=== PATIENT | male | born 1940 | race Caucasian/White ===

== ENCOUNTER 2016-09-21 13:11 | Emergency (ER) | payer OTHER, MEDICARE ==
[2016-09-21 13:19] VITALS: TEMP 97.8; BMI 39.4
--- NOTE | 2016-09-21 15:28 | PDOC ---
History of Present Illness <William Hong - Last Filed: 09/21/16 18:18> - General History Source: Patient Exam Limitations: No Limitations - History of Present Illness Initial Comments: 09/21/16 17:45 The patient is a 76 year old male, with a significant past medical history of hypertension and hyperlipidemia, who presents to the emergency department sent from wound care for evaluation of bilateral lower extremity edema and erythema for approximately 1 week. Pt hasn't really noticed any more erythema than usual. The patient reports his right leg swelling is worse than the left, and is mainly localized above the right knee. The patient states his right leg is worse than the left, because he has been bearing more weight on the right leg due to left leg weakness from his spinal stenosis. Patient reports the swelling does not really bother him. He denies any associated fever or chills. He denies any history of DVTs or PEs. He denies any chest pain, shortness of breath, diaphoresis, or palpitations. He denies any recent travel. Patient reports he has an unknown skin condition, which he sees a Fagot Maker for and takes steroids for. He denies any abdominal pain, nausea, vomiting, diarrhea, or constipation. He denies any dysuria, hematuria, frequency, or urgency. Allergies: None reported Past Surgical History: 2 hip replacements, 2 knee replacements Social History: Former smoker (Quit 15 years ago). No ETOH or drug use. PCP: Dr. Charles <Stefano Hardin - Last Filed: 09/21/16 18:30> - General Chief Complaint: Redness To Affected Area Stated Complaint: KNEE PAIN (WOUND CARE SENT) Time Seen by Provider: 09/21/16 13:40 Past History - Past Medical History HTN: Yes Hypercholesterolemia: Yes - Psycho/Social/Smoking Cessation Hx Anxiety: No Suicidal Ideation: No Smoking History: Former smoker Have you smoked in the past 12 months: No If you are a former smoker, when did you quit?: 15 years ago Information on smoking cessation initiated: No Hx Alcohol Use: No Drug/Substance Use Hx: No Substance Use Type: None <William Hong - Last Filed: 09/21/16 18:18> <Stefano Hardin - Last Filed: 09/21/16 18:30> - Past Medical History Allergies/Adverse Reactions: Allergies Allergy/AdvReac Type Severity Reaction Status Date / Time No Known Allergies Allergy Verified 09/21/16 13:14 Home Medications: Ambulatory Orders Prednisone [Deltasone -] 10 mg PO DAILY 09/10/16 Valsartan [Diovan] 80 mg PO DAILY 09/10/16 Simvastatin [Zocor] 0 mg PO DAILY 09/21/16 Review of Systems - Review of Systems Able to Perform ROS?: Yes Comments:: 09/21/16 17:45 CONSTITUTIONAL: No reported: Fever, Chills, Diaphoresis, Generalized Weakness, Malaise, Loss of Appetite HEENT: No reported: Rhinorrhea, Nasal Congestion, Throat Pain, Throat Swelling, Difficulty Swallowing, Mouth Swelling, Ear Pain, Eye Pain, Visual Changes CARDIOVASCULAR: No reported: Chest Pain, Syncope, Palpitations, Irregular Heart Rate, Lightheadedness, Peripheral Edema RESPIRATORY: No reported: Cough, Shortness of Breath, SOB with Exertion, Orthopnea, Wheezing , Stridor, Hemoptysis GASTROINTESTINAL: No reported: Abdominal pain, Abdominal Distension, Nausea, Vomiting, Diarrhea, Constipation, Melena, Hematochezia GENITOURINARY: No reported: Dysuria, Frequency, Urgency, Hesitancy, Flank Pain, Genital Pain MUSCULOSKELETAL: Present: +bilateral lower extremity edema and erythema No reported: Myalgia, Arthralgia, Joint Swelling, Back pain, Neck Pain SKIN: No reported: Rash, Itching, Pallor HEMEATOLOGIC/IMMUNOLOGIC: No reported: Easy Bleeding, Easy Bruising, Lymphadenopathy, Frequent infections ENDOCRINE: No reported: Unexplained Weight Gain, Unexplained Weight Loss, Heat Intolerance , Cold Intolerance NEUROLOGIC: No reported: Headache, Focal Weakness, Paresthesias, Vertigo, Lightheadedness, Unsteady Gait, Seizure, Mental Status Changes, Incontinence PSYCHIATRIC: No reported: Anxiety, Depression <HardinStefano azul - Last Filed: 09/21/16 18:30> *Physical Exam - Vital Signs Last Vital Signs Temp Pulse Resp BP Pulse Ox 97.8 F 89 18 129/70 97 09/21/16 13:15 09/21/16 13:36 09/21/16 13:15 09/21/16 13:15 09/21/16 13:36 <HalWilliam - Last Filed: 09/21/16 18:18> - Vital Signs Last Vital Signs Temp Pulse Resp BP Pulse Ox 97.8 F 89 18 129/70 97 09/21/16 13:15 09/21/16 13:36 09/21/16 13:15 09/21/16 13:15 09/21/16 13:36 - Physical Exam Comments: 09/21/16 17:46 GENERAL: The patient is awake, alert, and fully oriented, Nontoxic - in no acute distress. obese HEAD: Normocephalic, atraumatic. EYES: extraocular movements intact, sclera anicteric, conjunctiva clear. ENT: Normal voice, Moist mucous membranes. NECK: Normal range of motion, supple LUNGS: Breath sounds equal, clear to auscultation bilaterally. No wheezes, no rhonchi, no rales. HEART: Regular rate and rhythm, normal S1 and S2 without murmur, rub or gallop. ABDOMEN: Soft, nontender, normoactive bowel sounds. No guarding, no rebound. . No CVA tenderness EXTREMITIES: macerated skin with some superficial breakdown of epidermis on b/l LE, no erythema, induration, warmth, discharge, erythema that is blanching, non indurated, nontender, not warm to touch on thighs b/l, flaking skin noted b/l. NEUROLOGICAL: No facial asymmetry, Normal speech, moving all 4 extremities spontaneously and symmetrically PSYCH: Normal mood, normal affect. SKIN: Warm, Dry, normal turgor <WilfredGiomilsy - Last Filed: 09/21/16 18:30> Heart Score/ECG Review - ECG Impressions Comment:: 09/21/16 18:16 Twelve-lead EKG was performed and reviewed by me. There is normal sinus rhythm with a normal rate. Rate of 89 left axis devatiion RBBB PBCs present <HalWilliam - Last Filed: 09/21/16 18:18> ED Treatment Course - LABORATORY CBC & Chemistry Diagram: 09/21/16 15:45 09/21/16 15:45 <HalWilliam - Last Filed: 09/21/16 18:18> - LABORATORY CBC & Chemistry Diagram: 09/21/16 15:45 09/21/16 15:45 - ADDITIONAL ORDERS Additional order review: Laboratory Results 09/21/16 15:45 Sodium 139 Potassium 4.3 Chloride 103 Carbon Dioxide 29 Anion Gap 7 L BUN 18 Creatinine 0.8 Creat Clearance w eGFR > 60 Random Glucose 106 Calcium 8.9 Total Bilirubin 0.6 AST 15 ALT 20 Alkaline Phosphatase 59 Total Protein 5.6 L Albumin 3.1 L 09/21/16 15:45 RBC 3.20 L MCV 91.1 MCHC 31.6 L RDW 16.2 H MPV 7.8 Neutrophils % 80.4 Lymphocytes % 8.8 Monocytes % 7.8 Eosinophils % 2.2 Basophils % 0.8 - RADIOLOGY Radiology Studies Ordered: 09/21/16 18:27 EXAM: LLE venous US INTERPRETED BY: Dr. Boucher REVIEWED BY: Dr. Hong IMPRESSION: Clinical information given: evaluate for DVT The exam was performed utilizing compression, grayscale, color flow and doppler sonography. There is no sonographic evidence of deep vein thrombosis. The greater saphenous vein appears patent. The smaller superficial veins demonstrate no obvious thrombosis. If there is clinical concern for possible isolated deep calf vein thrombosis or if there is a clinical diagnosis of uncomplicated superficial thrombophlebitis, then correlation with follow up sonography is suggested in approximately 3-7 days. No obvious popliteal cyst is noted. EXAM: CXR INTERPRETED BY: Dr. Lassiter REVIEWED BY: Dr. Hong IMPRESSION: No acute pathology. Left base scarring or atelectasis. Necklace artifact. <Stefano Hardin - Last Filed: 09/21/16 18:30> Medical Decision Making - Medical Decision Making 09/21/16 15:39 pt with htn, hl, sent by wound care for redness/swelling of his R leg. 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 I answered all of the patient's questions. The patient was satisfied with the care received and felt comfortable with the discharge plan and treatment plan. The patient will call their primary care physician within 24 hours to arrange follow-up and will return to the Emergency Department with any new, persistent or worsening symptoms. <William Hong - Last Filed: 09/21/16 18:18> *DC/Admit/Observation/Transfer - Discharge Dispostion Admit: No <William Hong - Last Filed: 09/21/16 18:18> - Attestations Scribe Attestion: 09/21/16 17:46 Documentation prepared by Stefano Hardin, acting as medical planner for William Hong MD. <Stefano Hardin - Last Filed: 09/21/16 18:30> Diagnosis at time of Disposition: Erythroderma - Discharge Dispostion Disposition: HOME Condition at time of disposition: Improved - Referrals Referrals: John Charles [Primary Care Provider] - - Patient Instructions Additional Instructions: Follow-up with your residential sales executive next Saturday for evaluation of your skin condition Return to the emergency department if you have any concerns including shortness of breath, fever, chills, increased pain or any other concerns Print Language: PASHTO
[2016-09-21 15:53] LABS: BASOPHIL 0.8 % (0-2.0); EOSINOPHIL 2.2 % (0-4.5); MCH 28.8 pg (25.7-33.7); MCHC 31.6 g/dl (32.0-35.9); MEAN CELL VOLUME 91.1 fl (80-96); MEAN PLT VOLUME 7.8 fl (7.5-11.1); NEUTROPHILS 80.4 % (42.8-82.8); PLATELET COUNT 210 K/MM3 (134-434); RDW 16.2 % (11.9-15.9); WHITE BLOOD COUNT 8.7 K/mm3 (4.0-10.0)
[2016-09-21 16:18] LABS: ALBUMIN 3.1 g/dl (3.4-5.0); ANION GAP 7 (8-16); BILIRUBIN,TOTAL 0.6 mg/dL (0.2-1.0); CALCIUM 8.9 mg/dL (8.5-10.1); CO2 29 mmol/L (21-32); CREATININE 0.8 mg/dL (0.7-1.3); GLUCOSE,RANDOM 106 mg/dL (74-106); SGOT/AST 15 U/L (15-37); SGPT/ALT 20 U/L (12-78); TOT PROT 5.6 g/dl (6.4-8.2)
[2016-09-21 16:19] LABS: ALK PHOS 59 U/L (45-117)
[2016-09-21 18:13] VITALS: BP 147/76; PULSE 87
--- NOTE | 2016-10-01 15:27 | EKG ---
Test Reason : Blood Pressure : / mmHG Vent. Rate : 089 BPM Atrial Rate : 089 BPM P-R Int : 126 ms QRS Dur : 126 ms QT Int : 404 ms P-R-T Axes : 039 -30 001 degrees QTc Int : 491 ms SINUS RHYTHM WITH OCCASIONAL PREMATURE VENTRICULAR COMPLEXES AND PREMATURE ATRIAL COMPLEXES LEFT AXIS DEVIATION RIGHT BUNDLE BRANCH BLOCK MODERATE VOLTAGE CRITERIA FOR LVH, MAY BE NORMAL VARIANT ABNORMAL ECG NO PREVIOUS ECGS AVAILABLE Confirmed by LUANN BARTLETT, MARITZA ([id number]) on 10/01/2016 3:27:16 PM Referred By: Confirmed By:MARITZA KONG MD
== END 2016-09-21 18:31 | disposition home or self-care (01) ==
LOC: JER 13:11
DX: L53.9 Erythematous condition, unspecified (principal); I10 Essential (primary) hypertension; E78.5 Hyperlipidemia, unspecified; Z87.891 Personal history of nicotine dependence
CPT/HCPCS: 36415; 71010-TC; 80053; 85025; 93005; 93010; 93971-TC; 99282-25

== ENCOUNTER 2019-10-09 14:53 | Inpatient (IN) | payer OTHER, MEDICARE ==
--- NOTE | 2019-10-09 15:02 | PDOC ---
Rapid Medical Evaluation Time Seen by Provider: 10/09/19 14:56 Medical Evaluation: Allergies Allergy/AdvReac Type Severity Reaction Status Date / Time No Known Allergies Allergy Verified 10/02/19 16:09 10/09/19 14:56 I have performed a brief in-person evaluation of this patient. CC: sent by wound care for admission for IV Abx- cellulitis BLE L>R PE: deferred Orders: labs, ekg, cxr Patient will proceed to ED for further evaluation. Discharge Disposition - Diagnosis Cellulitis - Referrals Referrals: Nicolasa Don [Primary Care Provider] - - Patient Instructions - Post Discharge Activity
--- NOTE | 2019-10-09 15:58 | PDOC ---
History of Present Illness - General Chief Complaint: Wound Stated Complaint: Wound Time Seen by Provider: 10/09/19 14:56 - History of Present Illness Initial Comments: 79 YOM h/o HLD. HTN, erythroderma, presents with suspected skin infection of 2 weeks duration. Patient reports that 2 weeks prior to arrival he was diagnosed with cellulitis for which was treated with a one week course of PO antibiotics, however after one week of antibiotics his symptoms did not improve. He was seen this morning at the wound center on the 5th floor for a dressing change where a nurse inspected his wound and suggested he come to the ED to be admitted for IV antibiotics. He mentions some drainage from the wound site as well as some warmth overlying the wound and the skin in the immediate periphery. He denies any pain in the region. He denies CP, SOB, N/V/D, fever, night sweats or chills. 10/09/19 17:49 Past History - Medical History Allergies/Adverse Reactions: Allergies Allergy/AdvReac Type Severity Reaction Status Date / Time No Known Allergies Allergy Verified 10/02/19 16:09 Home Medications: Ambulatory Orders Valsartan [Diovan] 80 mg PO DAILY 09/10/16 Simvastatin [Zocor] 0 mg PO DAILY 09/21/16 Cyanocobalamin [Vitamin B12 -] 1 tab PO DAILY 09/28/16 Cholecalciferol (Vitamin D3) [Vitamin D3 -] 2,000 units PO DAILY 04/04/18 Ferrous Sulfate [Iron] 325 mg PO DAILY 04/04/18 Cephalexin [Keflex] 500 mg PO TID #21 capsule 09/18/19 Anemia: No Asthma: No Cancer: No Cardiac Disorders: No CVA: No COPD: Yes CHF: No Dementia: No Diabetes: No GI Disorders: No Disorders: No HTN: Yes Hypercholesterolemia: Yes Liver Disease: No Seizures: No Thyroid Disease: No - Surgical History Abdominal Surgery: No Appendectomy: No Cardiac Surgery: No Cholecystectomy: No Lung Surgery: No Neurologic Surgery: No Orthopedic Surgery: Yes (bi-lateral knee replacements) - Psycho-Social/Smoking History Smoking History: Former smoker Have you smoked in the past 12 months: No If you are a former smoker, when did you quit?: 15 years ago Information on smoking cessation initiated: No - Substance Abuse Hx (Audit-C & DAST Scrn) How often the patient has a drink containing alcohol: 4 0r more times/wk Number of drinks the patient has on a typical day: 1 or 2 How often the patient has six or more drinks on one occasion: Daily or almost daily Score: In Men: 4 or > Positive; In Women: 3 or > Positive: 8 Screen Result (Pos requires Nsg. Audit-10AR): Positive In the last yr the pt used illegal drug/Rx for NonMed reason: No Score: Yes response is considered Positive: 0 Screen Result (Positive result requires Nsg. DAST-10): Negative Review of Systems - Review of Systems Able to Perform ROS?: Yes Constitutional: Yes: See HPI HEENTM: Yes: See HPI Respiratory: Yes: See HPI Cardiac (ROS): Yes: See HPI ABD/GI: Yes: See HPI : Yes: See HPI Musculoskeletal: Yes: See HPI Integumentary: Yes: See HPI Neurological: Yes: See HPI Endocrine: Yes: See HPI Hematologic/Lymphatic: Yes: See HPI *Physical Exam - Vital Signs Last Vital Signs Temp Pulse Resp BP Pulse Ox 98.2 F 69 19 142/79 97 10/09/19 15:00 10/09/19 15:00 10/09/19 15:00 10/09/19 15:00 10/09/19 15:00 - Physical Exam General Appearance: Yes: Nourished, Appropriately Dressed Respiratory/Chest: positive: Lungs Clear, Normal Breath Sounds, Respiratory Distress Cardiovascular: positive: Regular Rhythm, Regular Rate, S1, S2 Gastrointestinal/Abdominal: positive: Normal Bowel Sounds, Flat, Soft Extremity: positive: Other (Patient right leg and foot is covered in gauze bandage, patients left leg is erythematous, macerated, with flakey and scaley overlying skin, there is some greenish drainage on his foot particularly in between his toes. His leg and foot is diffusely warm to palpation. No sign of induration. ) ED Treatment Course - LABORATORY CBC & Chemistry Diagram: 10/09/19 16:40 10/09/19 16:40 Medical Decision Making - Medical Decision Making 79 YOM h/o HLD. HTN, erythroderma, presents with suspected skin infection of 2 weeks duration. Patient reports that 2 weeks prior to arrival he was diagnosed with cellulitis for which was treated with a one week course of PO antibiotics, however after one week of antibiotics his symptoms did not improve. He was seen this morning at the wound center on the 5th floor for a dressing change where a nurse inspected his wound and suggested he come to the ED to be admitted for IV antibiotics. He mentions some drainage from the wound site as well as some warmth overlying the wound and the skin in the immediate periphery. He denies any pain in the region. He denies CP, SOB, N/V/D, fever, night sweats or chills. Vitals were stable on arrival. Physical exam outside of leg is wnl. Left leg is erythematous, macerated, with flakey and scaley overlying skin, there is some greenish drainage on his foot particularly in between his toes. His leg and foot is diffusely warm to palpation. No sign of induration. ddx includes but is not limited to: Cellulitis, osteomyelitis, erythroderma. plan: CBC, CMP, CXR, XRAY left foot and left leg. IV vanc and zosyn reassess: labs and CXR wnl. Dispo: will admit to inpatient for IV antibiotics Discharge - Discharge Information Problems reviewed: Yes Clinical Impression/Diagnosis: Cellulitis - Follow up/Referral - Patient Discharge Instructions - Post Discharge Activity
[2019-10-09] MEDS ORDERED: VANCOMYCIN HCL 1,500 MG in DEXTROSE 5%-WATER - 500 ML IVPB ONE (17:06)
[2019-10-09] MEDS ORDERED: PIPERACILLIN/TAZOB 3.375 GM 3.375 GM in DEXTROSE 5%-WATER - 50 ML IVPB ONE (17:07)
[2019-10-09 17:13] LABS: HEMATOCRIT 39.3 % (35.4-49); HEMOGLOBIN 12.8 GM/dL (11.7-16.9); MCH 27.7 pg (25.7-33.7); MCHC 32.5 g/dl (32.0-35.9); MEAN CELL VOLUME 85.2 fl (80-96); MEAN PLT VOLUME 7.9 fl (7.5-11.1); PLATELET COUNT 240 K/MM3 (134-434); RBC 4.62 M/mm3 (4.00-5.60); RDW 14.1 % (11.9-15.9); WHITE BLOOD COUNT 9.5 K/mm3 (4.0-10.0)
[2019-10-09] MEDS ORDERED: PIPERACILLIN/TAZOB 3.375 GM 3.375 GM/50 ML BAG IVPB ONE (17:16)
[2019-10-09 17:36] LABS: ALBUMIN 3.4 g/dl (3.4-5.0); BILIRUBIN,TOTAL 0.4 mg/dL (0.2-1); BLOOD UREA NITROGEN 26.8 mg/dL (7-18); CREATININE 1.3 mg/dL (0.55-1.3); POTASSIUM 4.4 mmol/L (3.5-5.1); TOT PROT 6.9 g/dl (6.4-8.2)
--- NOTE | 2019-10-09 17:43 | PDOC ---
Documentation entered by Christel Marti SCRIBE, acting as scribe for Jamil Willson MD. Jamil Willson MD: This documentation has been prepared by the Figueroa shi Sydney, SCRIBE, under my direction and personally reviewed by me in its entirety. I confirm that the documentation accurately reflects all work, treatment, procedures, and medical decision making performed by me. Attending Attestation - Resident Resident Name: Navarro Hall - ED Attending Attestation I have performed the following: I have examined & evaluated the patient, The case was reviewed & discussed with the resident, I agree w/resident's findings & plan, Exceptions are as noted - HPI HPI: 10/09/19 17:41 Patient is a 79 year old male with a significant past medical history of HTN, HLD who presents to the ED with six weeks of progressively worsening left lower leg redness and swelling. As per patient, he noticed worsening redness, blisters, fluid drainage last month and was prescribed antibiotics for seven days two weeks ago with no relief of his symptoms. Patient reports similar symptoms in the past, but this infection is the worst it has ever been. Patient denied any pain associated with his symptoms. Denies fever, chills, CP or shor tness of breath. Allergies: NKDA PCP: Dr. Don - Physicial Exam PE: 10/09/19 17:44 See resident exam - Medical Decision Making 10/09/19 17:54 79 M with BLE swelling, redness, edema. Pt with desquamating skin rash on both legs. Unclear what primary process is, but pt now with superinfection of LLE. - Labs - IV abx - XRs Discharge - Discharge Information Problems reviewed: Yes Clinical Impression/Diagnosis: Cellulitis - Follow up/Referral - Patient Discharge Instructions - Post Discharge Activity
[2019-10-09 18:28] LABS: URINE APPEARANCE CLEAR; URINE BILIRUBIN NEGATIVE (NEGATIVE); URINE COLOR YELLOW; URINE GLUCOSE (UA) NEGATIVE (NEGATIVE); URINE KETONE NEGATIVE (NEGATIVE); URINE LEUK ESTERASE NEGATIVE (NEGATIVE); URINE NITRITE NEGATIVE (NEGATIVE); URINE PROTEIN NEGATIVE (NEGATIVE); URINE UROBILINOGEN 0.2 mg/dL (0.2-1.0)
--- NOTE | 2019-10-09 18:33 | PN ---
Teaching Attending Note Name of Resident: Liana Dhillon ATTENDING PHYSICIAN STATEMENT I saw and evaluated the patient. I reviewed the resident's note and discussed the case with the resident. I agree with the resident's findings and plan as documented. SUBJECTIVE: Referred from wound care center for worsening lower extremity cellulitis OBJECTIVE: Vital Signs Temperature 98.2 F 10/09/19 15:00 Pulse Rate 69 10/09/19 15:00 Respiratory Rate 19 10/09/19 17:05 Blood Pressure 142/79 10/09/19 15:00 O2 Sat by Pulse Oximetry (%) 97 10/09/19 17:05 General: Elderly man, comfortable, not in distress HEENT mucous membranes moist, no anemia, no jaundice, PERRLA, no nystagmus Neck: No JVD, supple, no bruit, thyroid palpably normal, normal carotid pulsations. Chest: Nontender, clear to auscultation bilaterally CVS: S1-S2 regular no murmur/gallop/rub Abdomen: Nondistended, soft, bowel sounds present. Extremities: Bilateral lower extremity edema, right lower extremity wrapped and bandaged, left extremity extensive redness erythema and loss of skin with oozing of serous fluid, peripheral circulation is intact. DRINK WAITER: AO X3 , no gross motor sensory deficit CBC,CMP WBC 9.5 K/mm3 (4.0-10.0) 10/09/19 16:40 RBC 4.62 M/mm3 (4.00-5.60) 10/09/19 16:40 Hgb 12.8 GM/dL (11.7-16.9) 10/09/19 16:40 Hct 39.3 % (35.4-49) D 10/09/19 16:40 MCV 85.2 fl (80-96) 10/09/19 16:40 MCH 27.7 pg (25.7-33.7) 10/09/19 16:40 MCHC 32.5 g/dl (32.0-35.9) 10/09/19 16:40 RDW 14.1 % (11.9-15.9) D 10/09/19 16:40 Plt Count 240 K/MM3 (134-434) 10/09/19 16:40 MPV 7.9 fl (7.5-11.1) 10/09/19 16:40 Absolute Neuts (auto) 7.1 K/mm3 (1.5-8.0) 10/09/19 16:40 Neutrophils % 74.5 % (42.8-82.8) 10/09/19 16:40 Lymphocytes % 11.7 % (8-40) D 10/09/19 16:40 Monocytes % 6.7 % (3.8-10.2) 10/09/19 16:40 Eosinophils % 6.5 % (0-4.5) H D 10/09/19 16:40 Basophils % 0.6 % (0-2.0) 10/09/19 16:40 Nucleated RBC % 0 % (0-0) 10/09/19 16:40 Sodium 141 mmol/L (136-145) 10/09/19 16:40 Potassium 4.4 mmol/L (3.5-5.1) 10/09/19 16:40 Chloride 104 mmol/L (98-107) 10/09/19 16:40 Carbon Dioxide 28 mmol/L (21-32) 10/09/19 16:40 Anion Gap 9 MMOL/L (8-16) 10/09/19 16:40 BUN 26.8 mg/dL (7-18) H 10/09/19 16:40 Creatinine 1.3 mg/dL (0.55-1.3) 10/09/19 16:40 Est GFR (CKD-EPI)AfAm 60.15 10/09/19 16:40 Est GFR (CKD-EPI)NonAf 51.90 10/09/19 16:40 Random Glucose 100 mg/dL (74-106) 10/09/19 16:40 Calcium 9.0 mg/dL (8.5-10.1) 10/09/19 16:40 Total Bilirubin 0.4 mg/dL (0.2-1) 10/09/19 16:40 AST 10 U/L (15-37) L 10/09/19 16:40 ALT 15 U/L (13-61) 10/09/19 16:40 Alkaline Phosphatase 70 U/L (45-117) 10/09/19 16:40 Total Protein 6.9 g/dl (6.4-8.2) 10/09/19 16:40 Albumin 3.4 g/dl (3.4-5.0) 10/09/19 16:40 Chest x-ray: No acute infiltrate EKG: Normal sinus rhythm no acute ST-T changes ASSESSMENT AND PLAN: 79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 Active issues:; 1. Left lower extremity cellulitis: Patient does not have any fever, total white blood cell count is mildly elevated, patient was on Keflex as an outpatient, no visible pus discharge, diffuse erythema will start on Unasyn pending ID recommendations, cultures are collected in the ED. Wound care follow-up vascular and ID recommendations, lower extremity venous Doppler to rule out DVT, follow-up BNP and echocardiogram. 2. Bilateral venous stasis: Leg elevation 3. Hypertension: Well-controlled resume home medications 3. Hypercholesteremia: Resume home medications DVT prophylaxis: Subcu Lovenox Case discussed with the resident.
--- NOTE | 2019-10-09 18:43 | HP ---
CHIEF COMPLAINT:left lower leg swelling and redness PCP:Dr. Don HISTORY OF PRESENT ILLNESS: Patient is a 79 year old male with past medical history of HTN and HLD, presented to the ED due to progressively worsening of left lower leg redness and swelling since 6 weeks ago. Patient is known to have chronic venous stasis of both legs, and has been seen by Dr. Grimes at the wound care clinic regularly. Patient reported he noticed worsening redness, blisters, fluid drainage, where he was prescribed Keflex for 1 week. patient reported no relief of the symptoms so he came back to the Wound care clinic 3 days ago where he was asked to come back today. During evaluation his left leg looked worse and he was advised to go to the ED for further evaluation and management. Patient denies any fevers, chills, headache, dizziness, chest pain, shortness of breath, abdominal pain, diarrhea, urinary symptoms. ER course was notable for: (1)Iv Vanc and Zosyn given (2) (3) Recent Travel:denies PAST MEDICAL HISTORY: HTN HLD PAST SURGICAL HISTORY: Social History: Smoking:previous smoker, quit 30 years ago Alcohol:2 glasses of wine per day Drugs: denies lives with son who takes care of his wounds Allergies No Known Allergies Allergy (Verified 10/02/19 16:09) HOME MEDICATIONS: Home Medications Medication Instructions Recorded Valsartan [Diovan] 80 mg PO DAILY 09/10/16 Simvastatin [Zocor] 0 mg PO DAILY 09/21/16 Cyanocobalamin [Vitamin B12 -] 1 tab PO DAILY 09/28/16 Cholecalciferol (Vitamin D3) 2,000 units PO DAILY 04/04/18 [Vitamin D3 -] Ferrous Sulfate [Iron] 325 mg PO DAILY 04/04/18 Cephalexin [Keflex] 500 mg PO TID #21 capsule 09/18/19 REVIEW OF SYSTEMS CONSTITUTIONAL: Absent: fever, chills, diaphoresis, generalized weakness, malaise, loss of appetite, weight change HEENT: Absent: rhinorrhea, nasal congestion, throat pain, throat swelling, difficulty swallowing, mouth swelling, ear pain, eye pain, visual changes CARDIOVASCULAR: Absent: chest pain, syncope, palpitations, irregular heart rate, lightheadedness, peripheral edema RESPIRATORY: Absent: cough, shortness of breath, dyspnea with exertion, orthopnea, wheezing, stridor, hemoptysis GASTROINTESTINAL: Absent: abdominal pain, abdominal distension, nausea, vomiting, diarrhea, constipation, melena, hematochezia GENITOURINARY: Absent: dysuria, frequency, urgency, hesitancy, hematuria, flank pain, genital pain MUSCULOSKELETAL: Absent: myalgia, arthralgia, joint swelling, back pain, neck pain SKIN: Absent: rash, itching, pallor HEMATOLOGIC/IMMUNOLOGIC: Absent: easy bleeding, easy bruising, lymphadenopathy, frequent infections ENDOCRINE: Absent: unexplained weight gain, unexplained weight loss, heat intolerance, cold intolerance NEUROLOGIC: Absent: headache, focal weakness or paresthesias, dizziness, unsteady gait, seizure, mental status changes, bladder or bowel incontinence PSYCHIATRIC: Absent: anxiety, depression, suicidal or homicidal ideation, hallucinations. PHYSICAL EXAMINATION Vital Signs - 24 hr 10/09/19 10/09/19 15:00 17:05 Temperature 98.2 F Pulse Rate 69 Respiratory 19 19 Rate Blood Pressure 142/79 O2 Sat by Pulse 97 97 Oximetry (%) GENERAL: Awake, alert, and fully oriented, in no acute distress. HEAD: Normal with no signs of trauma. EYES: PERRLA,EOMI, sclera anicteric, conjunctiva clear. EARS, NOSE, THROAT: Moist mucous membranes. NECK: Normal range of motion, supple LUNGS: Breath sounds equal, clear to auscultation bilaterally. HEART: Regular rate and rhythm, normal S1 and S2 ABDOMEN: Soft, nontender, not distended, normoactive bowel sounds LOWER EXTREMITIES: palpable pulses, warm, well-perfused. LLE: +erythema, clear fluid discharge, with skin desquamation from the left foot extending up to the knee NEUROLOGICAL: Cranial nerves II-XII intact. Normal speech. PSYCHIATRIC: Cooperative. Good eye contact. Appropriate mood and affect. SKIN: Warm, dry, normal turgor Laboratory Results - last 24 hr 10/09/19 10/09/19 10/09/19 16:40 16:40 17:30 WBC 9.5 RBC 4.62 Hgb 12.8 Hct 39.3 D MCV 85.2 MCH 27.7 MCHC 32.5 RDW 14.1 D Plt Count 240 MPV 7.9 Absolute Neuts (auto) 7.1 Neutrophils % 74.5 Lymphocytes % 11.7 D Monocytes % 6.7 Eosinophils % 6.5 H D Basophils % 0.6 Nucleated RBC % 0 Sodium 141 Potassium 4.4 Chloride 104 Carbon Dioxide 28 Anion Gap 9 BUN 26.8 H Creatinine 1.3 Est GFR (CKD-EPI)AfAm 60.15 Est GFR (CKD-EPI)NonAf 51.90 Random Glucose 100 Calcium 9.0 Total Bilirubin 0.4 AST 10 L ALT 15 Alkaline Phosphatase 70 Total Protein 6.9 Albumin 3.4 Urine Color Yellow Urine Appearance Clear Urine pH 5.0 Ur Specific [place] 1.018 Urine Protein Negative Urine Glucose (UA) Negative Urine Ketones Negative Urine Blood Negative Urine Nitrite Negative Urine Bilirubin Negative Urine Urobilinogen 0.2 Ur Leukocyte Esterase Negative ASSESSMENT/PLAN: Patient is a 79 year old male with past medical history of HTN and HLD, presented to the ED due to progressively worsening of left lower leg redness and swelling since 6 weeks ago. #LLE cellulitis -afebrile, no leukocytosis, no adri pus -Xray of right leg pending -IV vanc/zosyn given at the ED -will start Iv Unasyn -BLood cultures pending -lower extremity venous Doppler to rule out DVT -follow-up BNP and echocardiogram. -leg elevation for bilateral venous stasis -Vascular Surgery (Dr. Grimes) consulted. -I D (Dr. Sultana) consulted. #HTN -Continue Valsartan #HLD -On statin #FEN -Not on any standing fluids -Electrolytes wnl, routine bmp monitoring -Sodium restricted diet #Prophylaxis -Heparin 5000u sq bid #Disposition -full code -med surg Visit type - Emergency Visit Emergency Visit: Yes ED Registration Date: 10/09/19 Care time: The patient presented to the Emergency Department on the above date and was hospitalized for further evaluation of their emergent condition. - New Patient This patient is new to me today: Yes Date on this admission: 10/09/19 - Critical Care Critical Care patient: No ATTENDING PHYSICIAN STATEMENT I saw and evaluated the patient. I reviewed the resident's note and discussed the case with the resident. I agree with the resident's findings and plan as documented. SUBJECTIVE: OBJECTIVE: ASSESSMENT AND PLAN:
[2019-10-09 20:06] LABS: ERYTHROCYTE SEDIMENTATION RATE 38 mm/hr (0-20)
[2019-10-09 20:27] LABS: BASO % 0.6 % (0-2.0); EOS % 6.5 % (0-4.5); LYMPH % 11.7 % (8-40); MONO % 6.7 % (3.8-10.2); NEUT % 74.5 % (42.8-82.8)
--- NOTE | 2019-10-09 21:57 | CON.ID ---
Consult - History of Present Illness History of Present Illness: 79 y.o. male with PMH of HTN, HLD, b/l TKR, and b/l chronic venous stasis ulcers/ LLE>RLE edema who follows with Dr. Grimes was sent to the ER from [facility] for increasing LLE erythema/recent drainage concerning for cellulitis. Pt states he has been having increased fluid drainage from the LE and formation of blisters over the past several weeks. He states he completed a 2 wk course of Keflex 1 wk ago for cellulitis but without improvement. In the ER, he was noted to have LLE wound drainage with erythema and mild warmth. He has been afebrile and vitals are within normal range. Has been started on empiric IV Unasyn. Currently pt is alert, afebrile, without acute distress and denies pain but has noticeable LLE erythema/warmth with overlying dry, flaking skin. He has no other complaints. - History Source History Provided By: Patient Limitations to Obtaining History: No Limitations - Past Medical History Cardio/Vascular: Yes: HTN, Hyperlipdemia, Other (Venous stasis) Dermatology: Yes: Cellulitis - Past Surgical History Past Surgical History: Yes: Joint Replacement (hip x 3 knee x 2) - Alcohol/Substance Use Hx Alcohol Use: No - Smoking History Smoking history: Former smoker Have you smoked in the past 12 months: No If you are a former smoker, when did you quit?: 15 years ago Home Medications - Allergies Allergies/Adverse Reactions: Allergies Allergy/AdvReac Type Severity Reaction Status Date / Time No Known Allergies Allergy Verified 10/02/19 16:09 - Home Medications Home Medications: Ambulatory Orders Valsartan [Diovan] 80 mg PO DAILY 09/10/16 Simvastatin [Zocor] 0 mg PO DAILY 09/21/16 Cyanocobalamin [Vitamin B12 -] 1 tab PO DAILY 09/28/16 Cholecalciferol (Vitamin D3) [Vitamin D3 -] 2,000 units PO DAILY 04/04/18 Ferrous Sulfate [Iron] 325 mg PO DAILY 04/04/18 Cephalexin [Keflex] 500 mg PO TID #21 capsule 09/18/19 Review of Systems - Review of Systems Constitutional: reports: No Symptoms Eyes: reports: No Symptoms HENT: reports: No Symptoms Neck: reports: No Symptoms Cardiovascular: reports: No Symptoms Respiratory: reports: No Symptoms Gastrointestinal: reports: No Symptoms Genitourinary: reports: No Symptoms Musculoskeletal: reports: No Symptoms Integumentary: reports: Erythema (LLE warmth/redness/swelling), Wound, Other (dry) Neurological: reports: No Symptoms Endocrine: reports: No Symptoms Hematology/Lymphatic: reports: No Symptoms Psychiatric: reports: No Symptoms Physical Exam Vital Signs: Vital Signs Temperature 98.3 F 10/09/19 21:00 Pulse Rate 74 10/09/19 21:00 Respiratory Rate 16 10/09/19 21:00 Blood Pressure 144/77 10/09/19 21:00 O2 Sat by Pulse Oximetry (%) 98 10/09/19 21:00 Constitutional: Yes: Well Nourished, No Distress, Calm Eyes: Yes: Conjunctiva Clear, EOM Intact Neck: Yes: Supple Cardiovascular: Yes: Regular Rate and Rhythm Respiratory: Yes: CTA Bilaterally Gastrointestinal: Yes: Normal Bowel Sounds, Soft, Abdomen, Obese Renal/: Yes: WNL Extremities: Yes: Erythema (LLE ++ swelling/warmth/erythema, +extensive skin flaking, no tenderness. no fluctuant lesions palpable) Edema: LLE: 2+ Integumentary: Yes: WNL Neurological: Yes: Alert, Oriented Psychiatric: Yes: Alert Labs: CBC, BMP 10/09/19 16:40 10/09/19 16:40 Imaging - Results X-ray: Report Reviewed Ultrasound: Report Reviewed Problem List - Problems (1) Cellulitis of lower extremity Code(s): L03.119 - CELLULITIS OF UNSPECIFIED PART OF LIMB (2) Venous stasis dermatitis of both lower extremities Code(s): I87.2 - VENOUS INSUFFICIENCY (CHRONIC) (PERIPHERAL) (3) HTN (hypertension) Code(s): I10 - ESSENTIAL (PRIMARY) HYPERTENSION (4) HLD (hyperlipidemia) Code(s): E78.5 - HYPERLIPIDEMIA, UNSPECIFIED (5) Venous (peripheral) insufficiency Code(s): I87.2 - VENOUS INSUFFICIENCY (CHRONIC) (PERIPHERAL) Assessment/Plan 79 y.o. male with PMH of HTN, HLD, b/l TKR, and b/l chronic venous stasis ulcers/ LLE>RLE edema who follows with Dr. Grmies was sent to the ER from [facility] for increasing LLE erythema/recent drainage concerning for cellulitis LLE Cellulitis Venous stasis dermatitis HTN HLD -- continue Unasyn IV for now and monitor for improvement -- ESR 38, CRP 2.4 -- follow up blood cultures -- local care Pt afebrile/stable at this time Will follow up Thank you
[2019-10-09] MEDS: HEPARIN NA (PORCINE) 5,000 UNITS/ML 1ML VIAL SQ SCH (22:44)
[2019-10-10 03:05] VITALS: BMI 34.8
[2019-10-10] MEDS: AMPICILLIN NA/SULBACTAM NA 3 GM in SODIUM CHLORIDE 100 ML IVPB SCH ×4 (05:35→23:10)
[2019-10-10 07:58] LABS: BASO % 0.6 % (0-2.0); EOS % 6.8 % (0-4.5); HEMATOCRIT 34.9 % (35.4-49); HEMOGLOBIN 11.3 GM/dL (11.7-16.9); LYMPH % 11.3 % (8-40); MCH 27.6 pg (25.7-33.7); MCHC 32.5 g/dl (32.0-35.9); MEAN CELL VOLUME 84.8 fl (80-96); MEAN PLT VOLUME 8.1 fl (7.5-11.1); NEUT % 72.3 % (42.8-82.8); PLATELET COUNT 220 K/MM3 (134-434); RBC 4.11 M/mm3 (4.00-5.60); RDW 14.3 % (11.9-15.9); WHITE BLOOD COUNT 8.7 K/mm3 (4.0-10.0)
[2019-10-10 08:03] LABS: INR 1.1 (0.83-1.09)
[2019-10-10 08:06] LABS: ACTIVATED PTT 30.7 SECONDS (25.2-36.5)
[2019-10-10 08:19] LABS: ALBUMIN 2.7 g/dl (3.4-5.0); BILIRUBIN,TOTAL 0.8 mg/dL (0.2-1); CREATININE 1.1 mg/dL (0.55-1.3); MAGNESIUM 2.4 mg/dL (1.8-2.4); PHOSPHOROUS 3.4 mg/dL (2.5-4.9); POTASSIUM 4.1 mmol/L (3.5-5.1); TOT PROT 5.6 g/dl (6.4-8.2)
[2019-10-10] MEDS: HEPARIN NA (PORCINE) 5,000 UNITS/ML 1ML VIAL SQ SCH ×2 (09:24→21:28)
--- NOTE | 2019-10-10 15:03 | EKG ---
Test Reason : Blood Pressure : / mmHG Vent. Rate : 066 BPM Atrial Rate : 066 BPM P-R Int : 136 ms QRS Dur : 134 ms QT Int : 438 ms P-R-T Axes : 049 -41 -03 degrees QTc Int : 459 ms NORMAL SINUS RHYTHM WITH SINUS ARRHYTHMIA LEFT ANTERIOR HEMIBLOCK RIGHT BUNDLE BRANCH BLOCK BIFASCICULAR BLOCK MODERATE VOLTAGE CRITERIA FOR LVH, MAY BE NORMAL VARIANT ABNORMAL ECG WHEN COMPARED WITH ECG OF 21-SEP-2016 13:40, PREMATURE VENTRICULAR COMPLEXES ARE NO LONGER PRESENT PREMATURE ATRIAL COMPLEXES ARE NO LONGER PRESENT Confirmed by ALEKSANDR ELLIS MD ([id number]) on 10/10/2019 3:02:29 PM Referred By: Confirmed By:ALEKSANDR ELLIS MD
--- NOTE | 2019-10-10 17:03 | PN ---
Teaching Attending Note Name of Resident: Sam Carey ATTENDING PHYSICIAN STATEMENT I saw and evaluated the patient. I reviewed the resident's note and discussed the case with the resident. I agree with the resident's findings and plan as documented. SUBJECTIVE: Feeling well, complaining of discomfort B/L LEs. No fever/chills. OBJECTIVE: Afebrile, Hemodynamically Stale. Last Vital Signs Temp Pulse Resp BP Pulse Ox 98.4 F 70 18 119/67 97 10/10/19 14:05 10/10/19 14:05 10/10/19 14:05 10/10/19 14:05 10/10/19 09:00 HEENT - Atramatic, Normocephalic. Heart - S1, S2, RRR Lungs - clear to auscultation Abdomen - Soft, non-tender. Bowel Sounds normal. Extremities - L LE edema, erythema, scalling Neuro - AAO x 3. Tone/Power normal all extremities. Laboratory Results - last 24 hr 10/09/19 10/09/19 10/09/19 16:40 16:40 17:30 WBC 9.5 RBC 4.62 Hgb 12.8 Hct 39.3 D MCV 85.2 MCH 27.7 MCHC 32.5 RDW 14.1 D Plt Count 240 MPV 7.9 Absolute Neuts (auto) 7.1 Neutrophils % 74.5 Neutrophils % (Manual) No Result Required. Lymphocytes % 11.7 D Monocytes % 6.7 Eosinophils % 6.5 H D Basophils % 0.6 Nucleated RBC % 0 ESR 38 H PT with INR INR PTT (Actin FS) Sodium 141 Potassium 4.4 Chloride 104 Carbon Dioxide 28 Anion Gap 9 BUN 26.8 H Creatinine 1.3 Est GFR (CKD-EPI)AfAm 60.15 Est GFR (CKD-EPI)NonAf 51.90 Random Glucose 100 Calcium 9.0 Phosphorus Magnesium Total Bilirubin 0.4 AST 10 L ALT 15 Alkaline Phosphatase 70 C-Reactive Protein 2.4 H B-Natriuretic Peptide Total Protein 6.9 Albumin 3.4 TSH Urine Color Yellow Urine Appearance Clear Urine pH 5.0 Ur Specific [place] 1.018 Urine Protein Negative Urine Glucose (UA) Negative Urine Ketones Negative Urine Blood Negative Urine Nitrite Negative Urine Bilirubin Negative Urine Urobilinogen 0.2 Ur Leukocyte Esterase Negative 10/10/19 10/10/19 10/10/19 06:10 06:10 06:10 WBC 8.7 RBC 4.11 Hgb 11.3 L Hct 34.9 L MCV 84.8 MCH 27.6 MCHC 32.5 RDW 14.3 Plt Count 220 MPV 8.1 Absolute Neuts (auto) 6.3 Neutrophils % 72.3 Neutrophils % (Manual) Lymphocytes % 11.3 Monocytes % 9.0 Eosinophils % 6.8 H Basophils % 0.6 Nucleated RBC % 0 ESR PT with INR 13.00 INR 1.10 H PTT (Actin FS) 30.7 Sodium 139 Potassium 4.1 Chloride 105 Carbon Dioxide 27 Anion Gap 8 BUN 22.0 H Creatinine 1.1 Est GFR (CKD-EPI)AfAm 73.61 Est GFR (CKD-EPI)NonAf 63.51 Random Glucose 90 Calcium 8.0 L Phosphorus 3.4 Magnesium 2.4 Total Bilirubin 0.8 AST 8 L ALT 11 L Alkaline Phosphatase 53 C-Reactive Protein B-Natriuretic Peptide Total Protein 5.6 L Albumin 2.7 L TSH 1.53 Urine Color Urine Appearance Urine pH Ur Specific [place] Urine Protein Urine Glucose (UA) Urine Ketones Urine Blood Urine Nitrite Urine Bilirubin Urine Urobilinogen Ur Leukocyte Esterase 10/10/19 06:10 WBC RBC Hgb Hct MCV MCH MCHC RDW Plt Count MPV Absolute Neuts (auto) Neutrophils % Neutrophils % (Manual) Lymphocytes % Monocytes % Eosinophils % Basophils % Nucleated RBC % ESR PT with INR INR PTT (Actin FS) Sodium Potassium Chloride Carbon Dioxide Anion Gap BUN Creatinine Est GFR (CKD-EPI)AfAm Est GFR (CKD-EPI)NonAf Random Glucose Calcium Phosphorus Magnesium Total Bilirubin AST ALT Alkaline Phosphatase C-Reactive Protein B-Natriuretic Peptide 515.8 H Total Protein Albumin TSH Urine Color Urine Appearance Urine pH Ur Specific [place] Urine Protein Urine Glucose (UA) Urine Ketones Urine Blood Urine Nitrite Urine Bilirubin Urine Urobilinogen Ur Leukocyte Esterase Current Medications Generic Name Dose Route Start Last Admin Trade Name Freq PRN Reason Stop Dose Admin Heparin Sodium (Porcine) 5,000 unit 10/09/19 22:00 10/10/19 09:24 Heparin - SQ 5,000 unit BID BOWEN Administration Ampicillin Sodium/Sulbactam 100 mls @ 200 mls/hr 10/10/19 06:00 10/10/19 11:11 Sodium 3 gm/ Sodium Chloride IVPB 200 mls/hr Q6H BOWEN Administration Home Medications Medication Instructions Recorded Valsartan [Diovan] 80 mg PO DAILY 09/10/16 Simvastatin [Zocor] 0 mg PO DAILY 09/21/16 Cyanocobalamin [Vitamin B12 -] 1 tab PO DAILY 09/28/16 Cholecalciferol (Vitamin D3) 2,000 units PO DAILY 04/04/18 [Vitamin D3 -] Ferrous Sulfate [Iron] 325 mg PO DAILY 04/04/18 Cephalexin [Keflex] 500 mg PO TID #21 capsule 09/18/19 ASSESSMENT/PLAN: 79 year old male with history of HTN and HLD, presented to the ED due to progressive worsening of left lower leg redness and swelling for the past 4-6 weeks. Follows with wound care at [facility]. 1. Acute Cellulitis - LLE No ulcers/purulence Failed outpatient Keflex On IV Unasyn. Blood Cx pending. ID and Vascular Sx/Wound Care consulted. Afebrile, Hemodynamically Stable 2. 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 3. HTN - continue Valsartan 4. HLD - on Statin normally. DVT Px - Heparin SQ
[2019-10-10] MEDS ORDERED: PT OWN MED DRAWER 7, Y5N ONE (17:11)
--- NOTE | 2019-10-10 17:49 | PN ---
Progress Note, Physician History of Present Illness: Pt remains alert, afebrile, without distress. Still with LLE erythema/warmth. No specific complaints. - Current Medication List Current Medications: Active Medications Cholecalciferol (Vitamin D3 -) 2,000 unit PO DAILY [facility] Cyanocobalamin (Vitamin B12 -) 1,000 mcg PO DAILY [facility] Ferrous Sulfate (Feosol -) 325 mg PO DAILY [facility] Heparin Sodium (Porcine) (Heparin -) 5,000 unit SQ BID [facility] Last Admin: 10/10/19 09:24 Dose: 5,000 unit Documented by: Ampicillin Sodium/Sulbactam (Sodium 3 gm/ Sodium Chloride) 100 mls @ 200 mls/hr IVPB Q6H [facility] Last Admin: 10/10/19 17:14 Dose: 200 mls/hr Documented by: Valsartan (Diovan -) 80 mg PO DAILY [facility] - Objective Vital Signs: Vital Signs Temperature 98.4 F 10/10/19 14:05 Pulse Rate 70 10/10/19 14:05 Respiratory Rate 18 10/10/19 14:05 Blood Pressure 119/67 10/10/19 14:05 O2 Sat by Pulse Oximetry (%) 97 10/10/19 09:00 Constitutional: Yes: No Distress, Calm Cardiovascular: Yes: Regular Rate and Rhythm Respiratory: Yes: Regular Gastrointestinal: Yes: Normal Bowel Sounds, Soft, Abdomen, Obese Genitourinary: Yes: WNL Extremities: Yes: Erythema (LLE edema/warmth/erythema, +skin exfoliation) Edema: LLE: 2+ Peripheral Pulses WNL: Yes Integumentary: Yes: WNL Neurological: Yes: Alert, Oriented Labs: CBC, BMP 10/10/19 06:10 10/10/19 06:10 INR, PTT INR 1.10 (0.83-1.09) H 10/10/19 06:10 Laboratory Results - last 24 hr 10/09/19 10/09/19 10/09/19 16:40 16:40 17:30 WBC 9.5 RBC 4.62 Hgb 12.8 Hct 39.3 D MCV 85.2 MCH 27.7 MCHC 32.5 RDW 14.1 D Plt Count 240 MPV 7.9 Absolute Neuts (auto) 7.1 Neutrophils % 74.5 Neutrophils % (Manual) No Result Required. Lymphocytes % 11.7 D Monocytes % 6.7 Eosinophils % 6.5 H D Basophils % 0.6 Nucleated RBC % 0 ESR 38 H PT with INR INR PTT (Actin FS) Sodium 141 Potassium 4.4 Chloride 104 Carbon Dioxide 28 Anion Gap 9 BUN 26.8 H Creatinine 1.3 Est GFR (CKD-EPI)AfAm 60.15 Est GFR (CKD-EPI)NonAf 51.90 Random Glucose 100 Calcium 9.0 Phosphorus Magnesium Total Bilirubin 0.4 AST 10 L ALT 15 Alkaline Phosphatase 70 C-Reactive Protein 2.4 H B-Natriuretic Peptide Total Protein 6.9 Albumin 3.4 TSH Urine Color Yellow Urine Appearance Clear Urine pH 5.0 Ur Specific [place] 1.018 Urine Protein Negative Urine Glucose (UA) Negative Urine Ketones Negative Urine Blood Negative Urine Nitrite Negative Urine Bilirubin Negative Urine Urobilinogen 0.2 Ur Leukocyte Esterase Negative 10/10/19 10/10/19 10/10/19 06:10 06:10 06:10 WBC 8.7 RBC 4.11 Hgb 11.3 L Hct 34.9 L MCV 84.8 MCH 27.6 MCHC 32.5 RDW 14.3 Plt Count 220 MPV 8.1 Absolute Neuts (auto) 6.3 Neutrophils % 72.3 Neutrophils % (Manual) Lymphocytes % 11.3 Monocytes % 9.0 Eosinophils % 6.8 H Basophils % 0.6 Nucleated RBC % 0 ESR PT with INR 13.00 INR 1.10 H PTT (Actin FS) 30.7 Sodium 139 Potassium 4.1 Chloride 105 Carbon Dioxide 27 Anion Gap 8 BUN 22.0 H Creatinine 1.1 Est GFR (CKD-EPI)AfAm 73.61 Est GFR (CKD-EPI)NonAf 63.51 Random Glucose 90 Calcium 8.0 L Phosphorus 3.4 Magnesium 2.4 Total Bilirubin 0.8 AST 8 L ALT 11 L Alkaline Phosphatase 53 C-Reactive Protein B-Natriuretic Peptide Total Protein 5.6 L Albumin 2.7 L TSH 1.53 Urine Color Urine Appearance Urine pH Ur Specific [place] Urine Protein Urine Glucose (UA) Urine Ketones Urine Blood Urine Nitrite Urine Bilirubin Urine Urobilinogen Ur Leukocyte Esterase 10/10/19 06:10 WBC RBC Hgb Hct MCV MCH MCHC RDW Plt Count MPV Absolute Neuts (auto) Neutrophils % Neutrophils % (Manual) Lymphocytes % Monocytes % Eosinophils % Basophils % Nucleated RBC % ESR PT with INR INR PTT (Actin FS) Sodium Potassium Chloride Carbon Dioxide Anion Gap BUN Creatinine Est GFR (CKD-EPI)AfAm Est GFR (CKD-EPI)NonAf Random Glucose Calcium Phosphorus Magnesium Total Bilirubin AST ALT Alkaline Phosphatase C-Reactive Protein B-Natriuretic Peptide 515.8 H Total Protein Albumin TSH Urine Color Urine Appearance Urine pH Ur Specific [place] Urine Protein Urine Glucose (UA) Urine Ketones Urine Blood Urine Nitrite Urine Bilirubin Urine Urobilinogen Ur Leukocyte Esterase Microbiology 10/09/19 16:40 Blood - Peripheral Venous Blood Culture - Preliminary NO GROWTH OBTAINED AFTER 24 HOURS, INCUBATION TO CONTINUE FOR 4 DAYS. 10/09/19 16:40 Blood - Peripheral Venous Blood Culture - Preliminary NO GROWTH OBTAINED AFTER 24 HOURS, INCUBATION TO C ONTINUE FOR 4 DAYS. - ....Imaging X-ray: Report Reviewed Ultrasound: Report Reviewed Problem List - Problems (1) Cellulitis of lower extremity Code(s): L03.119 - CELLULITIS OF UNSPECIFIED PART OF LIMB (2) Venous stasis dermatitis of both lower extremities Code(s): I87.2 - VENOUS INSUFFICIENCY (CHRONIC) (PERIPHERAL) (3) HTN (hypertension) Code(s): I10 - ESSENTIAL (PRIMARY) HYPERTENSION (4) HLD (hyperlipidemia) Code(s): E78.5 - HYPERLIPIDEMIA, UNSPECIFIED (5) Venous (peripheral) insufficiency Code(s): I87.2 - VENOUS INSUFFICIENCY (CHRONIC) (PERIPHERAL) Assessment/Plan 79 y.o. male with PMH of HTN, HLD, b/l TKR, and b/l chronic venous stasis ulcers/ LLE>RLE edema who follows with Dr. Grimes was sent to the ER from [facility] for increasing LLE erythema/recent drainage concerning for cellulitis LLE Cellulitis Venous stasis dermatitis HTN HLD -- continue Unasyn IV for now, will consider broader coverage if no significant improvement noted -- US neg for DVT, other findings noted -- blood culture neg 24 h -- local care Pt afebrile/stable
--- NOTE | 2019-10-10 20:25 | PN ---
Physical Exam: SUBJECTIVE: Patient seen and examined at bedside. The patient reports no pain from his legs. His right leg is wrapped in a bandage. His left leg has erythema with significant peeling of his skin. The patient denies fever/chills, shortness of breath, chest pain, nausea, vomiting, diarrhea, and constipation. OBJECTIVE: Vital Signs Period Temp Pulse Resp BP Sys/Ma Pulse Ox Last 24 Hr 98.3 F-98.7 F 70-100 16-18 109-144/66-77 96-98 GENERAL: The patient is awake, alert, and fully oriented, in no acute distress. HEAD: Normal with no signs of trauma. EYES: Extraocular movements intact. No ptosis. ENT: Ears normal, nares patent, oropharynx clear without exudates, moist mucous membranes. NECK: Trachea midline, full range of motion, supple. LUNGS: Breath sounds equal, clear to auscultation bilaterally, no wheezes, no crackles, no accessory muscle use. HEART: Regular rate and rhythm, S1, S2 without murmur, rub or gallop. ABDOMEN: Soft, nontender, nondistended, normoactive bowel sounds, no guarding, no rebound, no masses. EXTREMITIES: bilateral leg edema. left leg erythemaous and signifcant peeling skin NEUROLOGICAL: Normal speech, gait not observed. PSYCH: Normal mood, normal affect. SKIN: Warm, dry, normal turgor, no rashes or lesions noted Laboratory Results - last 24 hr 10/09/19 10/10/19 10/10/19 16:40 06:10 06:10 WBC 8.7 RBC 4.11 Hgb 11.3 L Hct 34.9 L MCV 84.8 MCH 27.6 MCHC 32.5 RDW 14.3 Plt Count 220 MPV 8.1 Absolute Neuts (auto) 7.1 6.3 Neutrophils % 74.5 72.3 Neutrophils % (Manual) No Result Required. Lymphocytes % 11.7 D 11.3 Monocytes % 6.7 9.0 Eosinophils % 6.5 H D 6.8 H Basophils % 0.6 0.6 Nucleated RBC % 0 PT with INR 13.00 INR 1.10 H PTT (Actin FS) 30.7 Sodium Potassium Chloride Carbon Dioxide Anion Gap BUN Creatinine Est GFR (CKD-EPI)AfAm Est GFR (CKD-EPI)NonAf Random Glucose Calcium Phosphorus Magnesium Total Bilirubin AST ALT Alkaline Phosphatase B-Natriuretic Peptide Total Protein Albumin TSH 10/10/19 10/10/19 06:10 06:10 WBC RBC Hgb Hct MCV MCH MCHC RDW Plt Count MPV Absolute Neuts (auto) Neutrophils % Neutrophils % (Manual) Lymphocytes % Monocytes % Eosinophils % Basophils % Nucleated RBC % PT with INR INR PTT (Actin FS) Sodium 139 Potassium 4.1 Chloride 105 Carbon Dioxide 27 Anion Gap 8 BUN 22.0 H Creatinine 1.1 Est GFR (CKD-EPI)AfAm 73.61 Est GFR (CKD-EPI)NonAf 63.51 Random Glucose 90 Calcium 8.0 L Phosphorus 3.4 Magnesium 2.4 Total Bilirubin 0.8 AST 8 L ALT 11 L Alkaline Phosphatase 53 B-Natriuretic Peptide 515.8 H Total Protein 5.6 L Albumin 2.7 L TSH 1.53 Active Medications Generic Name Dose Route Start Last Admin Trade Name Freq PRN Reason Stop Dose Admin Cholecalciferol 2,000 unit 10/11/19 10:00 Vitamin D3 - PO DAILY BOWEN Cyanocobalamin 1,000 mcg 10/11/19 10:00 Vitamin B12 - PO DAILY BOWEN Ferrous Sulfate 325 mg 10/11/19 10:00 Feosol - PO DAILY BOWEN Heparin Sodium (Porcine) 5,000 unit 10/09/19 22:00 10/10/19 09:24 Heparin - SQ 5,000 unit BID BOWEN Administration Ampicillin Sodium/Sulbactam 100 mls @ 200 mls/hr 10/10/19 06:00 10/10/19 17:14 Sodium 3 gm/ Sodium Chloride IVPB 200 mls/hr Q6H BOWEN Administration Valsartan 80 mg 10/11/19 10:00 Diovan - PO DAILY BOWEN ASSESSMENT/PLAN: 79 year old male patient with past medical history of HTN, HLD who presented from wound care clinic with worsening of his left lower extremity cellulitis. 1. LLE cellulitis - Patient taking IV Unasyn - Pending Blood Cultures - ID and Vascular surgery consulted 2. 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 HTN - Patient taking Valsartan # FEN - Monitoring electrolytes, Sodium controlled diet DVT PPx - Heparin Sq Visit type - Emergency Visit Emergency Visit: Yes ED Registration Date: 10/09/19 Care time: The patient presented to the Emergency Department on the above date and was hospitalized for further evaluation of their emergent condition. - New Patient This patient is new to me today: Yes Date on this admission: 10/10/19 - Critical Care Critical Care patient: No - Discharge Referral Referred to [facility] Med P.C.: No ATTENDING PHYSICIAN STATEMENT I saw and evaluated the patient. I reviewed the resident's note and discussed the case with the resident. I agree with the resident's findings and plan as documented. SUBJECTIVE: OBJECTIVE: ASSESSMENT AND PLAN:
[2019-10-11] MEDS: AMPICILLIN NA/SULBACTAM NA 3 GM in SODIUM CHLORIDE 100 ML IVPB SCH ×3 (05:07→17:00)
[2019-10-11 08:37] LABS: HEMATOCRIT 36.4 % (35.4-49); HEMOGLOBIN 12.1 GM/dL (11.7-16.9); MCHC 33.3 g/dl (32.0-35.9); MEAN PLT VOLUME 8.1 fl (7.5-11.1); PLATELET COUNT 201 K/MM3 (134-434); RBC 4.33 M/mm3 (4.00-5.60); RDW 14.7 % (11.9-15.9); WHITE BLOOD COUNT 7.4 K/mm3 (4.0-10.0)
[2019-10-11 09:03] LABS: CALCIUM 8.2 mg/dL (8.5-10.1); MAGNESIUM 2.4 mg/dL (1.8-2.4); PHOSPHOROUS 3.6 mg/dL (2.5-4.9); POTASSIUM 4.1 mmol/L (3.5-5.1)
[2019-10-11] MEDS: HEPARIN NA (PORCINE) 5,000 UNITS/ML 1ML VIAL SQ SCH ×2 (09:13→21:13)
[2019-10-11] MEDS: CYANOCOBALAMIN 1,000 MCG TABLET (FP) PO SCH (09:13)
[2019-10-11] MEDS: FERROUS SO4 325 MG TABLET (FP) PO SCH (09:13)
[2019-10-11] MEDS: VALSARTAN 80 MG TABLET (UD) PO SCH (09:13)
[2019-10-11] MEDS: CHOLECALCIFEROL (VIT D3) 1,000 UNIT (25 MCG) TABLET PO SCH (09:13)
[2019-10-11] MEDS ORDERED: PT OWN MED DRAWER 7, Y5N ONE ×2 (10:57→16:59)
--- NOTE | 2019-10-11 15:35 | PN ---
Progress Note (short form) - Note Progress Note: SUBJECTIVE: Ongoing mild discomfort B/L LEs. No fever/chills. OBJECTIVE: Afebrile, Hemodynamically Stale. Last Vital Signs Temp Pulse Resp BP Pulse Ox 98.2 F 76 18 111/62 97 10/11/19 13:51 10/11/19 13:51 10/11/19 13:51 10/11/19 13:51 10/11/19 13:51 Heart - S1, S2, RRR Lungs - clear to auscultation Abdomen - Soft, non-tender. Bowel Sounds normal. Extremities - L LE edema, erythema, scalling > R Neuro - AAO x 3. Tone/Power normal all extremities. Laboratory Results - last 24 hr 10/11/19 10/11/19 07:16 07:16 WBC 7.4 RBC 4.33 Hgb 12.1 Hct 36.4 MCV 84.0 MCH 28.0 MCHC 33.3 RDW 14.7 Plt Count 201 MPV 8.1 Sodium 139 Potassium 4.1 Chloride 105 Carbon Dioxide 28 Anion Gap 6 L BUN 17.0 Creatinine 1.0 Est GFR (CKD-EPI)AfAm 82.60 Est GFR (CKD-EPI)NonAf 71.27 Random Glucose 116 H Calcium 8.2 L Phosphorus 3.6 Magnesium 2.4 Current Medications Generic Name Dose Route Start Last Admin Trade Name Niesha PRN Reason Stop Dose Admin Cholecalciferol 2,000 unit 10/11/19 10:00 10/11/19 09:13 Vitamin D3 - PO 2,000 unit DAILY BOWEN Administration Cyanocobalamin 1,000 mcg 10/11/19 10:00 10/11/19 09:13 Vitamin B12 - PO 1,000 mcg DAILY BOWEN Administration Ferrous Sulfate 325 mg 10/11/19 10:00 10/11/19 09:13 Feosol - PO 325 mg DAILY BOWEN Administration Heparin Sodium (Porcine) 5,000 unit 10/09/19 22:00 10/11/19 09:13 Heparin - SQ 5,000 unit BID BOWEN Administration Ampicillin Sodium/Sulbactam 100 mls @ 200 mls/hr 10/10/19 06:00 10/11/19 11:00 Sodium 3 gm/ Sodium Chloride IVPB 200 mls/hr Q6H BOWEN Administration Valsartan 80 mg 10/11/19 10:00 10/11/19 09:13 Diovan - PO 80 mg DAILY BOWEN Administration Home Medications Medication Instructions Recorded Valsartan [Diovan] 80 mg PO DAILY 09/10/16 Simvastatin [Zocor] 0 mg PO DAILY 09/21/16 Cyanocobalamin [Vitamin B12 -] 1 tab PO DAILY 09/28/16 Cholecalciferol (Vitamin D3) 2,000 units PO DAILY 04/04/18 [Vitamin D3 -] Ferrous Sulfate [Iron] 325 mg PO DAILY 04/04/18 Cephalexin [Keflex] 500 mg PO TID #21 capsule 09/18/19 ASSESSMENT/PLAN: 79 year old male with history of HTN and HLD, presented to the ED due to progressive worsening of left lower leg redness and swelling for the past 4-6 weeks. Follows with wound care at [facility]. 1. Acute Cellulitis atop chronic venous stasis dermatitis - LLE No ulcers/purulence Failed outpatient Keflex On IV Unasyn. Blood Cx negative ID and Vascular Sx/Wound Care consulted. Afebrile, Hemodynamically Stable 2. 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 Discussed with Dr. Grimes - will evaluate patient on 10/11. 3. HTN - continue Valsartan 4. HLD - on Statin normally. DVT Px - Heparin SQ Visit type - Emergency Visit Emergency Visit: Yes ED Registration Date: 10/09/19 Care time: The patient presented to the Emergency Department on the above date and was hospitalized for further evaluation of their emergent condition. - New Patient This patient is new to me today: No - Critical Care Critical Care patient: No - Discharge Referral Referred to [facility] Med P.C.: No
[2019-10-11] MEDS: AMMONIUM LACTATE 12% LOTION 225 GM BOTTLE TP SCH ×2 (20:18→21:13)
--- NOTE | 2019-10-11 21:20 | PN ---
Progress Note, Physician History of Present Illness: Pt still with LLE edema/erythema slightly less. No draining ulcers. Denies pain, remains afebrile. No specific complaints. - Current Medication List Current Medications: Active Medications Cholecalciferol (Vitamin D3 -) 2,000 unit PO DAILY [facility] Last Admin: 10/11/19 09:13 Dose: 2,000 unit Documented by: Cyanocobalamin (Vitamin B12 -) 1,000 mcg PO DAILY [facility] Last Admin: 10/11/19 09:13 Dose: 1,000 mcg Documented by: Ferrous Sulfate (Feosol -) 325 mg PO DAILY [facility] Last Admin: 10/11/19 09:13 Dose: 325 mg Documented by: Heparin Sodium (Porcine) (Heparin -) 5,000 unit SQ BID [facility] Last Admin: 10/11/19 21:13 Dose: 5,000 unit Documented by: Ampicillin Sodium/Sulbactam (Sodium 3 gm/ Sodium Chloride) 100 mls @ 200 mls/hr IVPB Q6H [facility] Last Admin: 10/11/19 17:00 Dose: 200 mls/hr Documented by: Lactic Acid (Lac-Hydrin 12) 1 applic TP BID [facility] Last Admin: 10/11/19 21:13 Dose: 1 applic Documented by: Valsartan (Diovan -) 80 mg PO DAILY [facility] Last Admin: 10/11/19 09:13 Dose: 80 mg Documented by: - Objective Vital Signs: Vital Signs Temperature 98.2 F 10/11/19 13:51 Pulse Rate 76 10/11/19 13:51 Respiratory Rate 18 10/11/19 13:51 Blood Pressure 111/62 10/11/19 13:51 O2 Sat by Pulse Oximetry (%) 97 10/11/19 13:51 Constitutional: Yes: No Distress, Calm Cardiovascular: Yes: Regular Rate and Rhythm Respiratory: Yes: Regular Gastrointestinal: Yes: Normal Bowel Sounds, Soft, Abdomen, Obese Wound/Incision: Yes: Other (LLE edema/erythema, slightly less warm, +dry flaking skin , no drainage) Neurological: Yes: Alert, Oriented Labs: CBC, BMP 10/11/19 07:16 10/11/19 07:16 INR, PTT INR 1.10 (0.83-1.09) H 10/10/19 06:10 Laboratory Last Values WBC 7.4 K/mm3 (4.0-10.0) 10/11/19 07:16 RBC 4.33 M/mm3 (4.00-5.60) 10/11/19 07:16 Hgb 12.1 GM/dL (11.7-16.9) 10/11/19 07:16 Hct 36.4 % (35.4-49) 10/11/19 07:16 MCV 84.0 fl (80-96) 10/11/19 07:16 MCH 28.0 pg (25.7-33.7) 10/11/19 07:16 MCHC 33.3 g/dl (32.0-35.9) 10/11/19 07:16 RDW 14.7 % (11.9-15.9) 10/11/19 07:16 Plt Count 201 K/MM3 (134-434) 10/11/19 07:16 MPV 8.1 fl (7.5-11.1) 10/11/19 07:16 Absolute Neuts (auto) 6.3 K/mm3 (1.5-8.0) 10/10/19 06:10 Neutrophils % 72.3 % (42.8-82.8) 10/10/19 06:10 Neutrophils % (Manual) No Result Required. 10/09/19 16:40 Lymphocytes % 11.3 % (8-40) 10/10/19 06:10 Monocytes % 9.0 % (3.8-10.2) 10/10/19 06:10 Eosinophils % 6.8 % (0-4.5) H 10/10/19 06:10 Basophils % 0.6 % (0-2.0) 10/10/19 06:10 Nucleated RBC % 0 % (0-0) 10/10/19 06:10 ESR 38 mm/hr (0-20) H 10/09/19 16:40 PT with INR 13.00 SEC (9.7-13.0) 10/10/19 06:10 INR 1.10 (0.83-1.09) H 10/10/19 06:10 PTT (Actin FS) 30.7 SECONDS (25.2-36.5) 10/10/19 06:10 Sodium 139 mmol/L (136-145) 10/11/19 07:16 Potassium 4.1 mmol/L (3.5-5.1) 10/11/19 07:16 Chloride 105 mmol/L (98-107) 10/11/19 07:16 Carbon Dioxide 28 mmol/L (21-32) 10/11/19 07:16 Anion Gap 6 MMOL/L (8-16) L 10/11/19 07:16 BUN 17.0 mg/dL (7-18) 10/11/19 07:16 Creatinine 1.0 mg/dL (0.55-1.3) 10/11/19 07:16 Est GFR (CKD-EPI)AfAm 82.60 10/11/19 07:16 Est GFR (CKD-EPI)NonAf 71.27 10/11/19 07:16 Random Glucose 116 mg/dL (74-106) H 10/11/19 07:16 Calcium 8.2 mg/dL (8.5-10.1) L 10/11/19 07:16 Phosphorus 3.6 mg/dL (2.5-4.9) 10/11/19 07:16 Magnesium 2.4 mg/dL (1.8-2.4) 10/11/19 07:16 Total Bilirubin 0.8 mg/dL (0.2-1) 10/10/19 06:10 AST 8 U/L (15-37) L 10/10/19 06:10 ALT 11 U/L (13-61) L 10/10/19 06:10 Alkaline Phosphatase 53 U/L (45-117) 10/10/19 06:10 C-Reactive Protein 2.4 MG/DL (0.00-0.3) H 10/09/19 16:40 B-Natriuretic Peptide 515.8 pg/ml (5-450) H 10/10/19 06:10 Total Protein 5.6 g/dl (6.4-8.2) L 10/10/19 06:10 Albumin 2.7 g/dl (3.4-5.0) L 10/10/19 06:10 TSH 1.53 uIU/ml (0.358-3.74) 10/10/19 06:10 Urine Color Yellow 10/09/19 17:30 Urine Appearance Clear 10/09/19 17:30 Urine pH 5.0 (5.0-8.0) 10/09/19 17:[address] 1.018 (1.010-1.035) 10/09/19 17:30 Urine Protein Negative (NEGATIVE) 10/09/19 17:30 Urine Glucose (UA) Negative (NEGATIVE) 10/09/19 17:30 Urine Ketones Negative (NEGATIVE) 10/09/19 17:30 Urine Blood Negative (NEGATIVE) 10/09/19 17:30 Urine Nitrite Negative (NEGATIVE) 10/09/19 17:30 Urine Bilirubin Negative (NEGATIVE) 10/09/19 17:30 Urine Urobilinogen 0.2 mg/dL (0.2-1.0) 10/09/19 17:30 Ur Leukocyte Esterase Negative (NEGATIVE) 10/09/19 17:30 Microbiology 10/09/19 16:40 Blood - Peripheral Venous Blood Culture - Preliminary NO GROWTH OBTAINED AFTER 48 HOURS, INCUBATION TO CONTINUE FOR 3 DAYS. 10/09/19 16:40 Blood - Peripheral Venous Blood Culture - Preliminary NO GROWTH OBTAINED AFTER 48 HOURS, INCUBATION TO CONTINUE FOR 3 DAYS. 10/09/19 17:30 Urine - Urine Clean Catch Urine Culture - Final NO GROWTH OBTAINED Problem List - Problems (1) Cellulitis of lower extremity Code(s): L03.119 - CELLULITIS OF UNSPECIFIED PART OF LIMB (2) Venous stasis dermatitis of both lower extremities Code(s): I87.2 - VENOUS INSUFFICIENCY (CHRONIC) (PERIPHERAL) (3) HTN (hypertension) Code(s): I10 - ESSENTIAL (PRIMARY) HYPERTENSION (4) HLD (hyperlipidemia) Code(s): E78.5 - HYPERLIPIDEMIA, UNSPECIFIED (5) Venous (peripheral) insufficiency Code(s): I87.2 - VENOUS INSUFFICIENCY (CHRONIC) (PERIPHERAL) Assessment/Plan 79 y.o. male with PMH of HTN, HLD, b/l TKR, and b/l chronic venous stasis ulcers/ LLE>RLE edema who follows with Dr. Grimes was sent to the ER from [facility] for increasing LLE erythema/recent drainage concerning for cellulitis LLE Cellulitis Venous stasis dermatitis HTN HLD -- continue Unasyn IV for now and monitor for improvement -- Lac-hydrin ointment to LEs b/l -- blood culture neg -- local care continue monitor
[2019-10-12] MEDS: AMPICILLIN NA/SULBACTAM NA 3 GM in SODIUM CHLORIDE 100 ML IVPB SCH ×3 (01:02→11:00)
[2019-10-12] MEDS ORDERED: PT OWN MED DRAWER 7, Y5N ONE ×2 (09:29→16:14)
[2019-10-12] MEDS: CYANOCOBALAMIN 1,000 MCG TABLET (FP) PO SCH (10:53)
[2019-10-12] MEDS: FERROUS SO4 325 MG TABLET (FP) PO SCH (10:53)
[2019-10-12] MEDS: CHOLECALCIFEROL (VIT D3) 1,000 UNIT (25 MCG) TABLET PO SCH (10:53)
[2019-10-12] MEDS: VALSARTAN 80 MG TABLET (UD) PO SCH (10:53)
[2019-10-12] MEDS: HEPARIN NA (PORCINE) 5,000 UNITS/ML 1ML VIAL SQ SCH (10:53)
[2019-10-12] MEDS: AMMONIUM LACTATE 12% LOTION 225 GM BOTTLE TP SCH (10:53)
--- NOTE | 2019-10-12 11:46 | PN ---
Progress Note, Physician History of Present Illness: patient stable leg still looks bad but no warmth noted - Current Medication List Current Medications: Active Medications Cholecalciferol (Vitamin D3 -) 2,000 unit PO DAILY [facility] Last Admin: 10/12/19 10:53 Dose: 2,000 unit Documented by: Cyanocobalamin (Vitamin B12 -) 1,000 mcg PO DAILY [facility] Last Admin: 10/12/19 10:53 Dose: 1,000 mcg Documented by: Ferrous Sulfate (Feosol -) 325 mg PO DAILY [facility] Last Admin: 10/12/19 10:53 Dose: 325 mg Documented by: Heparin Sodium (Porcine) (Heparin -) 5,000 unit SQ BID [facility] Last Admin: 10/12/19 10:53 Dose: 5,000 unit Documented by: Ampicillin Sodium/Sulbactam (Sodium 3 gm/ Sodium Chloride) 100 mls @ 200 mls/hr IVPB Q6H [facility] Last Admin: 10/12/19 11:00 Dose: 200 mls/hr Documented by: Lactic Acid (Lac-Hydrin 12) 1 applic TP BID [facility] Last Admin: 10/12/19 10:53 Dose: 1 applic Documented by: Valsartan (Diovan -) 80 mg PO DAILY [facility] Last Admin: 10/12/19 10:53 Dose: 80 mg Documented by: - Objective Vital Signs: Vital Signs Temperature 97.6 F 10/12/19 06:00 Pulse Rate 70 10/12/19 06:00 Respiratory Rate 20 10/12/19 06:00 Blood Pressure 127/69 10/12/19 06:00 O2 Sat by Pulse Oximetry (%) 97 10/12/19 01:53 Constitutional: Yes: No Distress, Calm Cardiovascular: Yes: S1, S2 Respiratory: Yes: Regular, CTA Bilaterally Gastrointestinal: Yes: Normal Bowel Sounds, Soft Musculoskeletal: Yes: WNL Extremities: Yes: Erythema (minimal,al), Other (es: Other (LLE edema/erythema, slightly less warm, +dry flaking skin , no drainage)) Neurological: Yes: Alert, Oriented Psychiatric: Yes: Alert, Oriented Labs: CBC, BMP 10/11/19 07:16 10/11/19 07:16 INR, PTT INR 1.10 (0.83-1.09) H 10/10/19 06:10 Assessment/Plan Problem List - Problems (1) Cellulitis of lower extremity Code(s): L03.119 - CELLULITIS OF UNSPECIFIED PART OF LIMB (2) Venous stasis dermatitis of both lower extremities Code(s): I87.2 - VENOUS INSUFFICIENCY (CHRONIC) (PERIPHERAL) (3) HTN (hypertension) Code(s): I10 - ESSENTIAL (PRIMARY) HYPERTENSION (4) HLD (hyperlipidemia) Code(s): E78.5 - HYPERLIPIDEMIA, UNSPECIFIED (5) Venous (peripheral) insufficiency Code(s): I87.2 - VENOUS INSUFFICIENCY (CHRONIC) (PERIPHERAL) Assessment/Plan 79 y.o. male with PMH of HTN, HLD, b/l TKR, and b/l chronic venous stasis ulcers/ LLE>RLE edema who follows with Dr. Grimes was sent to the ER from [facility] for increasing LLE erythema/recent drainage concerning for cellulitis LLE Cellulitis Venous stasis dermatitis HTN HLD -- continue abx will d/w the team wound care to see the patient -- Lac-hydrin ointment to LEs b/l -- local care continue monitor
[2019-10-12 12:32] LABS: HEMATOCRIT 32.8 % (35.4-49); HEMOGLOBIN 10.7 GM/dL (11.7-16.9); MCH 27.7 pg (25.7-33.7); MCHC 32.7 g/dl (32.0-35.9); MEAN PLT VOLUME 7.7 fl (7.5-11.1); PLATELET COUNT 176 K/MM3 (134-434); RBC 3.86 M/mm3 (4.00-5.60); RDW 14.3 % (11.9-15.9); WHITE BLOOD COUNT 6.8 K/mm3 (4.0-10.0)
--- NOTE | 2019-10-12 12:57 | PN ---
Progress Note (short form) - Note Progress Note: Vascular Surgery Pt seen and examined. left lower extremity celllulitis getting better. Cont antibiotics. Alginate/jessica to left leg. Jerry Grimes dO
[2019-10-12 13:03] LABS: BLOOD UREA NITROGEN 11.8 mg/dL (7-18); CREATININE 0.9 mg/dL (0.55-1.3); MAGNESIUM 1.7 mg/dL (1.8-2.4); PHOSPHOROUS 2.3 mg/dL (2.5-4.9); POTASSIUM 3.1 mmol/L (3.5-5.1)
[2019-10-12 13:19] LABS: CALCIUM 6.6 mg/dL (8.5-10.1)
[2019-10-12 15:49] LABS: BLOOD UREA NITROGEN 14.4 mg/dL (7-18); CALCIUM 8.7 mg/dL (8.5-10.1); MAGNESIUM 2.6 mg/dL (1.8-2.4); PHOSPHOROUS 3.5 mg/dL (2.5-4.9); POTASSIUM 4.1 mmol/L (3.5-5.1)
--- NOTE | 2019-10-12 17:23 | DS ---
Physical Exam: SUBJECTIVE: Patient seen and examined at bedside. The patient denies any fever/chills, diarrhea, constipation, shortness of breath, chest pain, nausea, and vomiting. OBJECTIVE: Vital Signs Period Temp Pulse Resp BP Sys/Ma Pulse Ox Last 24 Hr 97.6 F-97.7 F 69-70 - 124-132/66-77 96-97 PHYSICAL EXAM GENERAL: The patient is awake, alert, and fully oriented, in no acute distress. HEAD: Normal with no signs of trauma. EYES: Extraocular movements intact. ENT: Ears normal, nares patent, oropharynx clear without exudates, moist mucous membranes. NECK: Trachea midline, full range of motion, supple. LUNGS: Breath sounds equal, clear to auscultation bilaterally, no wheezes, no crackles, no accessory muscle use. HEART: Regular rate and rhythm, S1, S2 without murmur, rub or gallop. ABDOMEN: Soft, nontender, nondistended, normoactive bowel sounds, no guarding, no rebound, no masses. EXTREMITIES: bilateral legs red below the knee if some peeling of the skin. The left foot has some dried blood on it. The feet feel warm. NEUROLOGICAL: Normal speech, gait not observed. PSYCH: Normal mood, normal affect. SKIN: Redness and peeling of legs bilaterally from below the knee including the feet. LABS Laboratory Results - last 24 hr 10/12/19 10/12/19 10/12/19 11:30 11:30 14:25 WBC 6.8 RBC 3.86 L Hgb 10.7 L Hct 32.8 L MCV 85.0 MCH 27.7 MCHC 32.7 RDW 14.3 Plt Count 176 MPV 7.7 Sodium 154 H 139 Potassium 3.1 L 4.1 Chloride 112 H 104 Carbon Dioxide 22 28 Anion Gap 20 H 7 L BUN 11.8 14.4 Creatinine 0.9 1.0 Est GFR (CKD-EPI)AfAm 93.82 82.60 Est GFR (CKD-EPI)NonAf 80.95 71.27 Random Glucose 135 H 125 H Calcium 6.6 L* 8.7 Phosphorus 2.3 L 3.5 Magnesium 1.7 L 2.6 H HOSPITAL COURSE: Date of Admission:10/09/19 79 year old male patient with past medical history that includes HTN and HLD, who presented to the ED due to progressive worsening of left lower extremity cellulitis with erythema and swelling for the past 4-6 weeks. The patient follows with wound care at [facility]. The patient had previously been on Keflex with no improvement of his cellulitis. The patient was given IV Zosyn and then switched to IV Unasyn with some improvement of his cellulitis. The patient also was found to have an AVM or AV Fistula in his left deep femoral vein on US Duplex. Vascular Surgery was consulted, who recommended outpatient follow up with no need for any current inpatient intervention. The patient was discharged on Augmentin for 7 more days and Alginate Wound Dressings to dress his cellul itis wounds, as well as instructions to follow up with ID and Vascular Surgery/Wound Care. Date of Discharge: 10/12/19 Minutes to complete discharge: 41 Discharge Summary Problems reviewed: Yes Reason For Visit: CELLULITIS Current Active Problems HLD (hyperlipidemia) (Chronic) HTN (hypertension) (Chronic) 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) Condition: Improved - Instructions Diet, Activity, Other Instructions: You were admitted to the hospital from the [facility] Care [facility] due to an infection of your right leg. While at the hospital, you were evaluated with blood work, lab work, and imaging including x-rays. We monitored your leg for changes and specialists evaluated your leg. We treated you with medication, including dressings and antibiotics. 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 Please follow up with a vascular surgeon about this finding. Medications Please continue all of your medications as prescribed. Please START taking the antibiotic Augmentin 500mg every 12 hours (twice a day) for 7 days from 10/13/19 to 10/19/19 for your leg infection. Please START dressing your leg using the Calcium Alginate dressings. Follow ups Please follow up with your Wound Care Clinic regarding your legs within 1 week. Please follow up with the vascular surgeon Dr. Jerry Grimes regarding the blood vessel malformation in your left leg. Please follow up with your primary care physician Dr. Nicolasa Don within 1 week. If you experience worsening symptoms, chest pain, difficulty breathing, abdominal pain, or worsening of your condition, please return to the emergency room or call 911. Referrals: Nicolasa Don [Primary Care Provider] - 1 Week () Jerry Grimes MD [Non Staff, Medical] - 1 Week (AVM or AV fistula in the region of the left deep femoral vein on Duplex Ultrasound) Disposition: HOME - Home Medications Comprehensive Discharge Medication List: Ambulatory Orders Amoxicillin/Potassium Clav [Augmentin 500-125 Tablet] 1 each PO BID 7 Days #14 tablet 10/12/19 Sertraline HCl [Zoloft -] 50 mg PO DAILY 10/12/19 Simvastatin 20 mg PO DAILY 10/12/19 Valsartan/Hydrochlorothiazide [Valsartan-Hctz 80-12.5 mg Tab] 1 tablet PO DAILY 10/12/19 This patient is new to me today: No Emergency Visit: Yes ED Registration Date: 10/09/19 Care time: The patient presented to the Emergency Department on the above date and was hospitalized for further evaluation of their emergent condition. Critical Care patient: No - Discharge Referral Referred to [facility] Med P.C.: No ATTENDING PHYSICIAN STATEMENT I saw and evaluated the patient. I reviewed the resident's note and discussed the case with the resident. I agree with the resident's findings and plan as documented. SUBJECTIVE: OBJECTIVE: ASSESSMENT AND PLAN:
[2019-10-12 17:41] VITALS: BP 111/64; PULSE 69; TEMP 97.3
--- NOTE | 2019-10-12 18:13 | PN ---
Teaching Attending Note Name of Resident: Sam Carey ATTENDING PHYSICIAN STATEMENT I saw and evaluated the patient. I reviewed the resident's note and discussed the case with the resident. I agree with the resident's findings and plan as documented. SUBJECTIVE: Ongoing mild discomfort B/L LEs. No fever/chills. OBJECTIVE: Afebrile, Hemodynamically Stale. Last Vital Signs Temp Pulse Resp BP Pulse Ox 97.3 F L 69 20 111/64 95 10/12/19 09:00 10/12/19 09:00 10/12/19 09:00 10/12/19 09:00 10/12/19 09:00 Heart - S1, S2, RRR Lungs - clear to auscultation Abdomen - Soft, non-tender. Bowel Sounds normal. Extremities - L LE edema, erythema, scalling > R Neuro - AAO x 3. Tone/Power normal all extremities. Laboratory Results - last 24 hr 10/12/19 10/12/19 10/12/19 11:30 11:30 14:25 WBC 6.8 RBC 3.86 L Hgb 10.7 L Hct 32.8 L MCV 85.0 MCH 27.7 MCHC 32.7 RDW 14.3 Plt Count 176 MPV 7.7 Sodium 154 H 139 Potassium 3.1 L 4.1 Chloride 112 H 104 Carbon Dioxide 22 28 Anion Gap 20 H 7 L BUN 11.8 14.4 Creatinine 0.9 1.0 Est GFR (CKD-EPI)AfAm 93.82 82.60 Est GFR (CKD-EPI)NonAf 80.95 71.27 Random Glucose 135 H 125 H Calcium 6.6 L* 8.7 Phosphorus 2.3 L 3.5 Magnesium 1.7 L 2.6 H Current Medications Generic Name Dose Route Start Last Admin Trade Name Freq PRN Reason Stop Dose Admin Cholecalciferol 2,000 unit 10/11/19 10:00 10/12/19 10:53 Vitamin D3 - PO 2,000 unit DAILY BOWEN Administration Cyanocobalamin 1,000 mcg 10/11/19 10:00 10/12/19 10:53 Vitamin B12 - PO 1,000 mcg DAILY BOWEN Administration Ferrous Sulfate 325 mg 10/11/19 10:00 10/12/19 10:53 Feosol - PO 325 mg DAILY BOWEN Administration Heparin Sodium (Porcine) 5,000 unit 10/09/19 22:00 10/12/19 10:53 Heparin - SQ 5,000 unit BID BOWEN Administration Ampicillin Sodium/Sulbactam 100 mls @ 200 mls/hr 10/10/19 06:00 10/12/19 11:00 Sodium 3 gm/ Sodium Chloride IVPB 200 mls/hr Q6H BOWEN Administration Lactic Acid 1 applic 10/11/19 18:00 10/12/19 10:53 Lac-Hydrin 12 TP 1 applic BID BOWEN Administration Valsartan 80 mg 10/11/19 10:00 10/12/19 10:53 Diovan - PO 80 mg DAILY BOWEN Administration Home Medications Medication Instructions Recorded Amoxicillin/Potassium Clav 1 each PO BID 7 Days #14 tablet 10/12/19 [Augmentin 500-125 Tablet] Sertraline HCl [Zoloft -] 50 mg PO DAILY 10/12/19 Simvastatin 20 mg PO DAILY 10/12/19 Valsartan/Hydrochlorothiazide 1 tablet PO DAILY 10/12/19 [Valsartan-Hctz 80-12.5 mg Tab] ASSESSMENT/PLAN: 79 year old male with history of HTN and HLD, presented to the ED due to progressive worsening of left lower leg redness and swelling for the past 4-6 weeks. Follows with wound care at [facility]. 1. Acute Cellulitis atop chronic venous stasis dermatitis - LLE No ulcers/purulence Failed outpatient Keflex Improved with IV Unasyn - discussed with Dr. Sultana - recommend transition to Augmentin for 7 more days Blood Cx negative ID and Vascular Sx/Wound Care follow up Wound dressing with Alginate as per Wound Care. 2. 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 Grimes - no need for any intervention. Will follow in clinic. 3. HTN - continue Valsartan 4. HLD - on Statin normally. Medically stable for discharge with Vascular Surgery/Wound Care follow up.
== END 2019-10-12 19:21 | disposition home or self-care (01) | DRG 603 ==
LOC: JER 14:53 → JERBED 18:44 → J7W 21:12
PROVIDERS: ADMIT Internal Medicine
DX: L03.116 Cellulitis of left lower limb (principal); I87.2 Venous insufficiency (chronic) (peripheral); I10 Essential (primary) hypertension; E78.5 Hyperlipidemia, unspecified; E66.9 Obesity, unspecified; Z68.34 Body mass index [BMI] 34.0-34.9, adult
CPT/HCPCS: 29581-LT; 29581-RT; 36415; 71046-TC-FY; 73590-TC-LT-FY; 73630-TC-LT; 80048; 80053; 81003; 83735; 83880; 84100; 84443; 85025; 85027; 85610; 85651; 85730; 86140; 87040; 87086; 93005; 93010; 93970-TC; 99285-25; A4649; G0463-25; J1644; U0003

== ENCOUNTER 2019-12-07 16:41 | Emergency (ER) | payer OTHER, MEDICARE ==
--- NOTE | 2019-12-07 17:05 | PDOC ---
Rapid Medical Evaluation Time Seen by Provider: 12/07/19 16:56 Medical Evaluation: Allergies Allergy/AdvReac Type Severity Reaction Status Date / Time No Known Allergies Allergy Verified 11/13/19 10:41 12/07/19 17:01 I performed a brief in-person evaluation of this patient. Pt is a 79 y/o male who presents to the ED with complaint of infected left leg wound and sent by Dr. Grimes for IV abx and admission. Pt does not have DM. H/o HTN, HLD. No fevers. No COVID contacts. Pertinent physical exam findings: B/l LE leg wounds wrapped, speaking in full sentences, non toxic I have ordered the following: saline lock, labs Patient to proceed to ED for further evaluation. Discharge Disposition - Diagnosis Leg wound, left - Referrals Referrals: Nicolasa Don [Primary Care Provider] - - Patient Instructions - Post Discharge Activity
[2019-12-07 17:07] VITALS: BP 135/62; PULSE 91; TEMP 98.1; BMI 34.4
--- OUTSIDE RECORDS SUMMARY | 2019-12-07 18:23 | XMS ---
:1940 Author Organization [facility] Support Name Relationship Address Phone RE, RETIRED Unavailable Unavailable Unavailable RE Unavailable Unavailable Unavailable MARJ ROCK [address] [place] [address] MARJ ROCK Spouse [address] [place] [address] Re-disclosure Warning The records that you are about to access may contain information from federally- assisted alcohol or drug abuse programs. If such information is present, then the following federally mandated warning applies: This information has been disclosed to you from records protected by federal confidentiality rules (42 CFR part 2). The federal rules prohibit you from making any further disclosure of this information unless further disclosure is expressly permitted by the written consent of the person to whom it pertains or as otherwise permitted by 42 CFR part 2. A general authorization for the release of medical or other information is NOT sufficient for this purpose. The Federal rules restrict any use of the information to criminally investigate or prosecute any alcohol or drug abuse patient.The records that you are about to access may contain highly sensitive health information, the redisclosure of which is protected by Article 27-F of the [facility] Public Health law. If you continue you may haveaccess to information: Regarding HIV / AIDS; Provided by facilities licensed or operated by the [facility] Office of Mental Health; or Provided by the [facility] Office for People With Developmental Disabilities. If such information is present, then the following [facility] mandated warning applies: This information has been disclosed to you from confidential records which are protected by state law. State law prohibits you from making any further disclosure of this information without the specific written consent of the person to whom it pertains, or as otherwise permitted by law. Any unauthorized further disclosure in violation of state law may result in a fine or long-term sentence or both. A general authorization for the release of medical or other information is NOT sufficient authorization for further disclosure. Insurance Providers Payer name Policy type Policy ID Covered Covered green party's Policy P syed / Coverage green party ID relationship to Tobar Inf ormation type tobar MEDICARE [id number] SP [id number] [id number] [facility] [id number] [employer] MEDICARE [id number] A Results ID Date Data Source [id number] 10/09/2019 05:30:00 PM EDT [facility] Name Value Range Interpretation Description Data Sup porting Code Source(s) Document(s ) SARS [facility] coronavirus 2 RNA This lab was ordered by [facility] and reported by [facility]. Procedure
--- NOTE | 2019-12-07 20:25 | CON.ID ---
Consult Consult Specialty:: infectious diseases Referred by:: Reason for Consultation:: non healing wound of the leg with oozing and infection - History of Present Illness Chief Complaint: oozing of the leg and non healing History of Present Illness: 79yo M pmh htn, hld, peripheral vascular disease s/p bilateral surgery, presenting from wound care clinic with LLE redness, drainage, foul smell in setting of recently failed outpatient PO antibiotic. Patient denies fevers, chills, nausea, vomiting, pain with ambulation, pain in the extremity. Reports a course of outpatient antibiotics for 1 week started 3 weeks ago without a change in the wound. Denies any other complaints - no chest pain, SOB, abdominal pain, weakness, nausea, vomiting, other concerns. - History Source History Provided By: Patient, Family Member Limitations to Obtaining History: No Limitations - Past Medical History Cardio/Vascular: Yes: HTN, Hyperlipdemia, Other Dermatology: Yes: Cellulitis - Past Surgical History Past Surgical History: Yes: Joint Replacement (hip x 3 knee x 2) - Alcohol/Substance Use Hx Alcohol Use: No - Smoking History Smoking history: Never smoked Have you smoked in the past 12 months: No If you are a former smoker, when did you quit?: 15 years ago Home Medications - Allergies Allergies/Adverse Reactions: Allergies Allergy/AdvReac Type Severity Reaction Status Date / Time No Known Allergies Allergy Verified 11/13/19 10:41 - Home Medications Home Medications: Ambulatory Orders Sertraline HCl [Zoloft -] 50 mg PO DAILY 10/12/19 Simvastatin 20 mg PO DAILY 10/12/19 Valsartan/Hydrochlorothiazide [Valsartan-Hctz 80-12.5 mg Tab] 1 tablet PO DAILY 10/12/19 Review of Systems - Review of Systems Constitutional: reports: No Symptoms Eyes: reports: No Symptoms HENT: reports: No Symptoms Neck: reports: No Symptoms Cardiovascular: reports: No Symptoms Respiratory: reports: No Symptoms Gastrointestinal: reports: No Symptoms Genitourinary: reports: No Symptoms Musculoskeletal: reports: Other Integumentary: reports: Erythema, Other Neurological: reports: No Symptoms Endocrine: reports: No Symptoms Hematology/Lymphatic: reports: No Symptoms Psychiatric: reports: No Symptoms Physical Exam Vital Signs: Vital Signs Temperature 98.1 F 12/07/19 17:02 Pulse Rate 91 H 12/07/19 17:02 Respiratory Rate 18 12/07/19 17:02 Blood Pressure 135/62 12/07/19 17:02 O2 Sat by Pulse Oximetry (%) 100 12/07/19 17:02 Constitutional: Yes: Well Nourished, Calm, Mild Distress Eyes: Yes: Conjunctiva Clear HENT: Yes: Atraumatic, Normocephalic Neck: Yes: Supple, Trachea Midline Cardiovascular: Yes: Regular Rate and Rhythm Respiratory: Yes: Regular, CTA Bilaterally Gastrointestinal: Yes: Normal Bowel Sounds, Soft Musculoskeletal: Yes: Other Extremities: Yes: Erythema, Other Wound/Incision: Yes: Draining, Other Neurological: Yes: Alert, Oriented Psychiatric: Yes: Alert, Oriented Assessment/Plan patient needs admission as he has failed out patient abx with increase in oozing from the wound as well as pain will give him a dose of zosyn and once admitted will continue zosyn
[2019-12-07] MEDS ORDERED: PIPERACILLIN/TAZOB 3.375 GM 3.375 GM in DEXTROSE 5%-WATER - 50 ML IVPB SCH (20:30)
== END 2019-12-07 19:03 | disposition home or self-care (01) ==
LOC: JER 16:41
DX: S81.802A Unspecified open wound, left lower leg, initial encounter (principal)
CPT/HCPCS: 99284-25; A6197; G0463-25

== ENCOUNTER 2019-12-11 10:51 | Inpatient (IN) | payer OTHER, MEDICARE ==
[2019-12-11] MEDS ORDERED: VANCOMYCIN 1 GM in D5W (PRE-DOCKED) 1,000 MG/250 ML IVPB ONE (11:58)
[2019-12-11] MEDS ORDERED: PIPERACILLIN/TAZOB 3.375 GM 3.375 GM in DEXTROSE 5%-WATER - 50 ML IVPB ONE (11:59)
--- NOTE | 2019-12-11 12:11 | CON.ID ---
Consult Consult Specialty:: infectious diseases Referred by:: dr cedillo Reason for Consultation:: non healing wound and infected wound of the left leg - History of Present Illness Chief Complaint: oozing and non healing wound of the left leg History of Present Illness: 79yo M pmh htn, hld, peripheral vascular disease s/p bilateral surgery, presenting from wound care clinic with LLE redness, drainage, foul smell in setting of recently failed outpatient PO antibiotic. Patient denies fevers, chills, nausea, vomiting, pain with ambulation, pain in the extremity. Reports a course of outpatient antibiotics for 1 week started 3 weeks ago without a change in the wound. Denies any other complaints - no chest pain, SOB, abdominal pain, weakness, nausea, vomiting, other concerns. patient had come to the er and then had left on the he mentions that he has no recollection of the events that time and does not remember anything - History Source History Provided By: Patient, Family Member, Medical Record Limitations to Obtaining History: No Limitations - Past Medical History Cardio/Vascular: Yes: HTN, Hyperlipdemia, Other Dermatology: Yes: Cellulitis - Past Surgical History Past Surgical History: Yes: Joint Replacement (hip x 3 knee x 2) - Alcohol/Substance Use Hx Alcohol Use: No - Smoking History Smoking history: Never smoked Have you smoked in the past 12 months: No If you are a former smoker, when did you quit?: 15 years ago Home Medications - Allergies Allergies/Adverse Reactions: Allergies Allergy/AdvReac Type Severity Reaction Status Date / Time No Known Allergies Allergy Verified 11/13/19 10:41 - Home Medications Home Medications: Ambulatory Orders RX: Sertraline HCl [Zoloft -] 50 mg PO DAILY 10/12/19 RX: Simvastatin 20 mg PO DAILY 10/12/19 RX: Valsartan/Hydrochlorothiazide [Valsartan-Hctz 80-12.5 mg Tab] 1 tablet PO DAILY 10/12/19 Review of Systems - Review of Systems Constitutional: reports: No Symptoms Eyes: reports: No Symptoms HENT: reports: No Symptoms Neck: reports: No Symptoms Cardiovascular: reports: No Symptoms Respiratory: reports: No Symptoms Gastrointestinal: reports: No Symptoms Genitourinary: reports: No Symptoms Musculoskeletal: reports: Other Integumentary: reports: Change in Color, Erythema, Wound, Other (oozing) Neurological: reports: No Symptoms Endocrine: reports: No Symptoms Hematology/Lymphatic: reports: No Symptoms Psychiatric: reports: No Symptoms Physical Exam Vital Signs: Vital Signs Temperature 97.3 F L 12/11/19 11:00 Pulse Rate 65 12/11/19 11:00 Respiratory Rate 16 12/11/19 11:00 Blood Pressure 134/73 12/11/19 11:00 O2 Sat by Pulse Oximetry (%) 99 12/11/19 11:00 Constitutional: Yes: Well Nourished, Calm, Mild Distress Eyes: Yes: Conjunctiva Clear HENT: Yes: Atraumatic, Normocephalic Neck: Yes: Supple, Trachea Midline Cardiovascular: Yes: Regular Rate and Rhythm Respiratory: Yes: Regular, CTA Bilaterally Gastrointestinal: Yes: Normal Bowel Sounds, Soft Musculoskeletal: Yes: WNL Extremities: Yes: Erythema, Other (wound) Wound/Incision: Yes: Dressing Removed, Draining Neurological: Yes: Alert, Oriented Psychiatric: Yes: Alert, Oriented Assessment/Plan patient ewith multiple medical problems coming in with worsening wound of the left leg with increased oozing and failed out patient treatment all cx reports noted will start patient on zosyn wound care rest as per the team wound care to see the patient
[2019-12-11] MEDS ORDERED: PIPERACILLIN/TAZOB 3.375 GM 3.375 GM/50 ML BAG IVPB ONE (12:29)
[2019-12-11] MEDS ORDERED: VANCOMYCIN 1 GRAM (PRE-DOCKED) 1,000 MG/250 ML BAG IVPB ONE (12:29)
[2019-12-11 13:22] LABS: BASO % 1.3 % (0-2.0); EOS % 4.5 % (0-4.5); HEMOGLOBIN 11.5 GM/dL (11.7-16.9); LYMPH % 10.5 % (8-40); MCHC 32.8 g/dl (32.0-35.9); MEAN CELL VOLUME 85.3 fl (80-96); MONO % 8.2 % (3.8-10.2); NEUT % 75.5 % (42.8-82.8); PLATELET COUNT 232 K/MM3 (134-434); RDW 15.9 % (11.9-15.9); WHITE BLOOD COUNT 6.7 K/mm3 (4.0-10.0)
--- NOTE | 2019-12-11 13:32 | PDOC ---
History of Present Illness - General Chief Complaint: Wound Stated Complaint: WOUND/SENT BY DR PARK Time Seen by Provider: 12/11/19 11:40 History Source: Patient, Family Exam Limitations: No Limitations - History of Present Illness Initial Comments: 12/11/19 13:25 PCP: Arian HPI: 79yo M pmh htn, hld, peripheral vascular disease s/p bilateral surgery, presenting from wound care clinic with LLE redness, drainage, foul smell in setting of recently failed outpatient PO antibiotic. Patient denies fevers, chills, nausea, vomiting, pain with ambulation, pain in the extremity. Reports a course of outpatient antibiotics for 1 week started 3 weeks ago without a change in the wound. Denies any other complaints - no chest pain, SOB, abdominal pain, weakness, nausea, vomiting, other concerns. All: NKDA Meds: Per chart PMH: As above PSH: Bilateral knee and hip replacements with 2 revision surgeries Past History - Travel History Traveled outside of the country in the last 30 days: No Close contact w/someone who was outside of country & ill: No - Medical History Allergies/Adverse Reactions: Allergies Allergy/AdvReac Type Severity Reaction Status Date / Time No Known Allergies Allergy Verified 11/13/19 10:41 Home Medications: Ambulatory Orders Sertraline HCl [Zoloft -] 50 mg PO DAILY 10/12/19 Simvastatin 20 mg PO DAILY 10/12/19 Valsartan/Hydrochlorothiazide [Valsartan-Hctz 80-12.5 mg Tab] 1 tablet PO DAILY 10/12/19 Anemia: No Asthma: No Cancer: No Cardiac Disorders: No CVA: No COPD: Yes CHF: No Dementia: No Diabetes: No GI Disorders: No Disorders: No HTN: Yes Hypercholesterolemia: Yes Liver Disease: No Seizures: No Thyroid Disease: No - Surgical History Abdominal Surgery: No Appendectomy: No Cardiac Surgery: No Cholecystectomy: No Lung Surgery: No Neurologic Surgery: No Orthopedic Surgery: Yes (bi-lateral knee replacements) - Psycho-Social/Smoking History Smoking History: Never smoked Have you smoked in the past 12 months: No If you are a former smoker, when did you quit?: 15 years ago Information on smoking cessation initiated: No - Substance Abuse Hx (Audit-C & DAST Scrn) How often the patient has a drink containing alcohol: Never Score: In Men: 4 or > Positive; In Women: 3 or > Positive: 0 Screen Result (Pos requires Nsg. Audit-10AR): Negative In the last yr the pt used illegal drug/Rx for NonMed reason: No Score: Yes response is considered Positive: 0 Screen Result (Positive result requires Nsg. DAST-10): Negative Review of Systems - Review of Systems Able to Perform ROS?: Yes Is the patient limited American proficient: Yes Constitutional: No: Chills, Diaphoresis, Malaise, Night Sweats, Weakness HEENTM: No: Recent change in vision, Nose Congestion, Throat Pain Respiratory: No: Cough, Shortness of Breath, Wheezing Cardiac (ROS): No: Chest Pain, Edema, Irregular Heart Rate, Lightheadedness, Palpitations, Chest Tightness ABD/GI: No: Constipated, Diarrhea, Nausea, Vomiting : No: Burning, Dysuria, Frequency Musculoskeletal: No: Back Pain, Muscle Pain, Muscle Weakness Integumentary: Yes: Change in Color, Erythema, Lesions. No: Bruising, Pruritus, Rash Neurological: No: Headache, Numbness, Tingling, Weakness Psychiatric: No: Anxiety, Depression, Stressors, Change in Appetite Endocrine: No: Increased Thirst, Increased Urine, Change in Weight Hematologic/Lymphatic: No: Anemia, Blood Clots, Easy Bleeding *Physical Exam - Vital Signs Last Vital Signs Temp Pulse Resp BP Pulse Ox 97.3 F L 65 16 134/73 99 12/11/19 11:00 12/11/19 11:00 12/11/19 11:00 12/11/19 11:00 12/11/19 11:00 - Physical Exam 12/11/19 13:45 Vitals reviewed, AFVSS GEN: Well appearing, appears stated age, NAD, comfortable. AAOx3. HEENT: NCAT, EOMI, PERRL. Sclera anicteric, non-injected. No facial asymmetry. Moist mucous membranes. Normal voice. Trachea midline. CV: RRR, S1/S2, no murmurs / rubs / gallops appreciated. LUNG: CTABL, normal work of breathing. No wheezes, rales, rhonchi. No cough. Speaking full sentences. GI: Soft, NTND, +BS, no guarding, no rebound. No masses. EXTREMITIES: 2+ distal pulses. No clubbing / cyanosis / edema. No gross defo rmity in any extremity. SKIN: Warm, dry, no rashes appreciated, non-jaundiced. LLE with mid-foreman down area of foul smelling, erythematous, warm, skin breakdown / oozing. PSYCH: Normal mood and affect. Cooperative and appropriate. NEURO: CN grossly intact. Moving all extremities well. Normal strength and sensation grossly. ED Treatment Course - LABORATORY CBC & Chemistry Diagram: 12/11/19 12:41 12/11/19 12:41 - ADDITIONAL ORDERS Additional order review: 12/11/19 12:41 RBC 4.10 MCV 85.3 MCHC 32.8 RDW 15.9 D MPV 8.0 Neutrophils % 75.5 Lymphocytes % 10.5 Monocytes % 8.2 Eosinophils % 4.5 Basophils % 1.3 - Medications Given in the ED: ED Medications Discontinued Medications Generic Name Dose Route Start Last Admin Trade Name Freq PRN Reason Stop Dose Admin Piperacillin Sod/Tazobactam 50 mls @ 100 mls/hr 12/11/19 11:59 12/11/19 12:44 Sod 3.375 gm/ Dextrose IVPB 12/11/19 12:28 100 mls/hr ONCE ONE Administration Protocol Vancomycin HCl 1,000 mg 12/11/19 11:58 12/11/19 13:20 Vancomycin (Pre-Docked) IVPB 12/11/19 11:59 1,000 mg ONCE ONE Administration Protocol Medical Decision Making - Medical Decision Making 12/11/19 13:47 79yo M pmh htn, hld, peripheral vascular disease s/p bilateral surgery, presenting from wound care clinic with LLE redness, drainage, foul smell in setting of recently failed outpatient PO antibiotic. Concerning for cellulitis without improvement on outpatient abx, will culture to r/o bacteremia although less likely in absence of any constitutional symptoms. Patient will require admission for IV abx and vascular consult. - CBC, CMP, BCx, ESR, CRP - Vanc / Zosyn - Consults Vascular and ID 12/11/19 14:26 - ESR, CRP elevated - No leukocytosis - Patient comfortable, receiving IV ABX Dispo: Admit Med/Surg Discharge - Discharge Information Problems reviewed: Yes Clinical Impression/Diagnosis: Venous stasis dermatitis of both lower extremities Leg wound, left Qualifiers: Encounter type: subsequent encounter Qualified Code(s): S81.802D - Unspecified open wound, left lower leg, subsequent encounter Condition: Guarded - Admission Yes - Follow up/Referral Referrals: Nicolasa Don [Primary Care Provider] - - Patient Discharge Instructions - Post Discharge Activity
[2019-12-11 13:56] LABS: ALBUMIN 3.1 g/dl (3.4-5.0); BILIRUBIN,TOTAL 0.2 mg/dL (0.2-1); BLOOD UREA NITROGEN 12.8 mg/dL (7-18); CALCIUM 8.5 mg/dL (8.5-10.1); CREATININE 0.8 mg/dL (0.55-1.3); POTASSIUM 4.4 mmol/L (3.5-5.1); TOT PROT 6.7 g/dl (6.4-8.2)
[2019-12-11 14:00] LABS: ERYTHROCYTE SEDIMENTATION RATE 44 mm/hr (0-20)
[2019-12-11] MEDS: PIPERACILLIN/TAZOB 3.375 GM 3.375 GM in DEXTROSE 5%-WATER - 50 ML IVPB SCH (18:21)
--- OUTSIDE RECORDS SUMMARY | 2019-12-11 19:16 | XMS ---
:1940 Author Organization [facility] Support Name Relationship Address Phone YASH ROCK SON [address] [place] [address] RE, RETIRED Unavailable Unavailable Unavailable RE Unavailable Unavailable Unavailable MARJ ROCK [address] [place] [address] YASH ROCK Child [address] [place] [address] MARJ ROCK Spouse [address] [place] [address] Re-disclosure Warning The records that you are [...] is protected by Article 27-F of the [facility] Public Health law. If you continue you may haveaccess to information: Regarding HIV / AIDS; Provided by facilities licensed or operated by the [facility] Office of Mental Health; or Provided by the [facility] Office for People With Developmental Disabilities. If such information is present, then the following [facility] mandated warning applies: This information has been [...] law may result in a fine or half-way sentence or both. A general authorization for the release of medical or other information is NOT sufficient authorization for further disclosure. Insurance Providers Payer name Policy type Policy ID Covered Covered republican's Policy P syed / Coverage republican ID relationship to Tobar Inf ormation type tobar MEDICARE [id number] T87 [facility] [id number] [employer] MEDICARE [id number] A Results ID Date Data Source [id number] 10/09/2019 05:30:00 PM EDT [facility] Name Value Range Interpretation Description Data Sup porting Code Source(s) Document(s ) SARS [facility] coronavirus 2 RNA This lab was ordered by [facility] and reported by [facility]. Procedure
[2019-12-11] MEDS: HEPARIN NA (PORCINE) 5,000 UNITS/ML 1ML VIAL SQ SCH (22:56)
[2019-12-11] MEDS: ATORVASTATIN CA 10 MG TABLET (FP) PO SCH (22:56)
[2019-12-12] MEDS ORDERED: PIPERACILLIN/TAZOBACTAM 3.375 GM VIAL IVPB ONE ×3 (01:19→16:36)
[2019-12-12] MEDS ORDERED: DEXTROSE 5%-WATER - 50 ML IVPB ONE ×3 (01:19→16:36)
[2019-12-12 02:16] VITALS: BMI 36.0
[2019-12-12] MEDS: PIPERACILLIN/TAZOB 3.375 GM 3.375 GM in DEXTROSE 5%-WATER - 50 ML IVPB SCH ×3 (02:27→17:26)
[2019-12-12] MEDS: HEPARIN NA (PORCINE) 5,000 UNITS/ML 1ML VIAL SQ SCH ×3 (05:02→21:33)
[2019-12-12 07:35] LABS: BASO % 0.8 % (0-2.0); EOS % 3.7 % (0-4.5); HEMOGLOBIN 10.5 GM/dL (11.7-16.9); LYMPH % 8.6 % (8-40); MCH 27.5 pg (25.7-33.7); MCHC 32.7 g/dl (32.0-35.9); MEAN CELL VOLUME 83.9 fl (80-96); MEAN PLT VOLUME 7.6 fl (7.5-11.1); MONO % 8.6 % (3.8-10.2); NEUT % 78.3 % (42.8-82.8); PLATELET COUNT 201 K/MM3 (134-434); RBC 3.81 M/mm3 (4.00-5.60); RDW 16.1 % (11.9-15.9); WHITE BLOOD COUNT 6.5 K/mm3 (4.0-10.0)
[2019-12-12 08:07] LABS: ALBUMIN 2.5 g/dl (3.4-5.0); BILIRUBIN,TOTAL 0.5 mg/dL (0.2-1); BLOOD UREA NITROGEN 14.5 mg/dL (7-18); CALCIUM 7.9 mg/dL (8.5-10.1); CREATININE 0.9 mg/dL (0.55-1.3); POTASSIUM 4.3 mmol/L (3.5-5.1); TOT PROT 5.4 g/dl (6.4-8.2)
[2019-12-12] MEDS: SERTRALINE HCL 50 MG TABLET (FP) PO SCH (09:06)
[2019-12-12] MEDS: PANTOPRAZOLE 20 MG TABLET PO SCH (09:06)
[2019-12-12] MEDS: VALSARTAN 80 MG TABLET (UD) PO SCH (09:06)
[2019-12-12] MEDS: HYDROCHLOROTHIAZIDE 12.5 MG CAPSULE (FP) PO SCH (09:06)
[2019-12-12] MEDS ORDERED: PIPERACILLIN/TAZOB 3.375 GM 3.375 GM in DEXTROSE 5%-WATER - 50 ML IVPB SCH (10:00)
[2019-12-12] MEDS ORDERED: PATIENT'S OWN MEDICATION (NON-FORMULARY) (Valsartan/Hydrochlorothiazide [Valsartan-Hctz 80 PO SCH (10:00)
--- NOTE | 2019-12-12 12:53 | PN ---
Progress Note, Physician History of Present Illness: patient stable doing well says he feels well - Current Medication List Current Medications: Active Medications Atorvastatin Calcium (Lipitor -) 10 mg PO HS [facility] Last Admin: 12/11/19 22:56 Dose: 10 mg Documented by: Heparin Sodium (Porcine) (Heparin -) 5,000 unit SQ TID [facility] Last Admin: 12/12/19 05:02 Dose: 5,000 unit Documented by: Hydrochlorothiazide (Hctz -) 12.5 mg PO DAILY [facility] Last Admin: 12/12/19 09:06 Dose: 12.5 mg Documented by: Piperacillin Sod/Tazobactam (Sod 3.375 gm/ Dextrose) 50 mls @ 100 mls/hr IVPB Q8H-IV BOWEN; Protocol Last Admin: 12/12/19 11:04 Dose: Not Given Documented by: Pantoprazole Sodium (Protonix -) 20 mg PO DAILY [facility] Last Admin: 12/12/19 09:06 Dose: 20 mg Documented by: Sertraline HCl (Zoloft -) 50 mg PO DAILY [facility] Last Admin: 12/12/19 09:06 Dose: 50 mg Documented by: Valsartan (Diovan -) 80 mg PO DAILY [facility] Last Admin: 12/12/19 09:06 Dose: 80 mg Documented by: - Objective Vital Signs: Vital Signs Temperature 98.6 F 12/12/19 10:00 Pulse Rate 73 12/12/19 10:00 Respiratory Rate 18 12/12/19 10:00 Blood Pressure 129/70 12/12/19 10:00 O2 Sat by Pulse Oximetry (%) 100 12/12/19 10:00 Constitutional: Yes: No Distress, Calm Cardiovascular: Yes: S1, S2 Respiratory: Yes: Regular, CTA Bilaterally Gastrointestinal: Yes: Normal Bowel Sounds, Soft Musculoskeletal: Yes: WNL Extremities: Yes: Erythema, Other Wound/Incision: Yes: Draining, Other Neurological: Yes: Alert, Oriented Psychiatric: Yes: Alert, Oriented Labs: CBC, BMP 12/12/19 06:35 12/12/19 06:35 Assessment/Plan this patient with multiple medical problems coming in with infected wound on the leg and with organisms growing with wound leaking [facility] to ahve a look rest as per the team
--- NOTE | 2019-12-12 13:40 | HP ---
Admitting History and Physical - Past Medical History Cardiovascular: Yes: HTN, Hyperlipdemia, Other Dermatology: Yes: Cellulitis - Past Surgical History Past Surgical History: Yes: Joint Replacement (hip x 3 knee x 2) - Smoking History Smoking history: Former smoker Have you smoked in the past 12 months: No If you are a former smoker, when did you quit?: 15 years ago - Alcohol/Substance Use Hx Alcohol Use: No Home Medications - Allergies Allergies/Adverse Reactions: Allergies Allergy/AdvReac Type Severity Reaction Status Date / Time No Known Allergies Allergy Verified 11/13/19 10:41 - Home Medications Home Medications: Ambulatory Orders Sertraline HCl [Zoloft -] 50 mg PO DAILY 10/12/19 Simvastatin 20 mg PO DAILY 10/12/19 Valsartan/Hydrochlorothiazide [Valsartan-Hctz 80-12.5 mg Tab] 1 tablet PO DAILY 10/12/19 Review of Systems - Review of Systems Cardiovascular: reports: No Symptoms Respiratory: reports: No Symptoms Integumentary: reports: Erythema, Wound Physical Examination Vital Signs: Vital Signs Temperature 98.6 F 12/12/19 10:00 Pulse Rate 73 12/12/19 10:00 Respiratory Rate 18 12/12/19 10:00 Blood Pressure 129/70 12/12/19 10:00 O2 Sat by Pulse Oximetry (%) 100 12/12/19 10:00 Cardiovascular: Yes: Regular Rate and Rhythm Respiratory: Yes: Regular, CTA Bilaterally Gastrointestinal: Yes: Normal Bowel Sounds, Soft Edema: Yes Wound/Incision: Yes: Dressing Removed, Draining, Reddened, Excoriated Labs: CBC, BMP 12/12/19 06:35 12/12/19 06:35 Problem List - Problems (1) Cellulitis of lower extremity Assessment/Plan: IV ABX ID CONSULT FOLLOW LABS Code(s): L03.119 - CELLULITIS OF UNSPECIFIED PART OF LIMB (2) Leg wound, left Assessment/Plan: WOUND CARE PER TEAM Code(s): S81.802A - UNSPECIFIED OPEN WOUND, LEFT LOWER LEG, INITIAL ENCOUNTER Qualifiers: Encounter type: subsequent encounter Qualified Code(s): S81.802D - Unspecified open wound, left lower leg, subsequent encounter (3) Venous stasis dermatitis of both lower extremities Assessment/Plan: ELEVATION Code(s): I87.2 - VENOUS INSUFFICIENCY (CHRONIC) (PERIPHERAL) (4) HLD (hyperlipidemia) Assessment/Plan: CONTINUE WITH MEDS Code(s): E78.5 - HYPERLIPIDEMIA, UNSPECIFIED (5) HTN (hypertension) Assessment/Plan: MONITOR Code(s): I10 - ESSENTIAL (PRIMARY) HYPERTENSION
[2019-12-12] MEDS: ATORVASTATIN CA 10 MG TABLET (FP) PO SCH (21:33)
[2019-12-13] MEDS ORDERED: PIPERACILLIN/TAZOBACTAM 3.375 GM VIAL IVPB ONE ×3 (00:04→16:49)
[2019-12-13] MEDS ORDERED: DEXTROSE 5%-WATER - 50 ML IVPB ONE ×3 (00:04→16:49)
[2019-12-13] MEDS: PIPERACILLIN/TAZOB 3.375 GM 3.375 GM in DEXTROSE 5%-WATER - 50 ML IVPB SCH ×3 (01:11→17:55)
[2019-12-13] MEDS: HEPARIN NA (PORCINE) 5,000 UNITS/ML 1ML VIAL SQ SCH ×3 (05:21→22:09)
[2019-12-13 07:31] LABS: BASO % 0.9 % (0-2.0); EOS % 5.7 % (0-4.5); HEMATOCRIT 35.8 % (35.4-49); HEMOGLOBIN 11.5 GM/dL (11.7-16.9); LYMPH % 11.8 % (8-40); MCH 27.4 pg (25.7-33.7); MCHC 32.2 g/dl (32.0-35.9); MEAN CELL VOLUME 85.2 fl (80-96); MEAN PLT VOLUME 7.6 fl (7.5-11.1); MONO % 7.9 % (3.8-10.2); NEUT % 73.7 % (42.8-82.8); PLATELET COUNT 205 K/MM3 (134-434); RBC 4.21 M/mm3 (4.00-5.60); WHITE BLOOD COUNT 6.4 K/mm3 (4.0-10.0)
[2019-12-13 07:43] LABS: ALBUMIN 2.8 g/dl (3.4-5.0); BILIRUBIN,TOTAL 0.5 mg/dL (0.2-1); BLOOD UREA NITROGEN 11.5 mg/dL (7-18); CALCIUM 8.2 mg/dL (8.5-10.1); CREATININE 0.9 mg/dL (0.55-1.3); POTASSIUM 4.5 mmol/L (3.5-5.1); TOT PROT 6.3 g/dl (6.4-8.2)
--- NOTE | 2019-12-13 07:51 | PN ---
Progress Note, Physician History of Present Illness: stable no new issues - Current Medication List Current Medications: Active Medications Atorvastatin Calcium (Lipitor -) 10 mg PO HS [facility] Last Admin: 12/12/19 21:33 Dose: 10 mg Documented by: Heparin Sodium (Porcine) (Heparin -) 5,000 unit SQ TID [facility] Last Admin: 12/13/19 05:21 Dose: 5,000 unit Documented by: Hydrochlorothiazide (Hctz -) 12.5 mg PO DAILY [facility] Last Admin: 12/12/19 09:06 Dose: 12.5 mg Documented by: Piperacillin Sod/Tazobactam (Sod 3.375 gm/ Dextrose) 50 mls @ 100 mls/hr IVPB Q8H-IV [facility]; Protocol Last Admin: 12/13/19 01:11 Dose: 100 mls/hr Documented by: Pantoprazole Sodium (Protonix -) 20 mg PO DAILY [facility] Last Admin: 12/12/19 09:06 Dose: 20 mg Documented by: Sertraline HCl (Zoloft -) 50 mg PO DAILY [facility] Last Admin: 12/12/19 09:06 Dose: 50 mg Documented by: Valsartan (Diovan -) 80 mg PO DAILY [facility] Last Admin: 12/12/19 09:06 Dose: 80 mg Documented by: - Objective Vital Signs: Vital Signs Temperature 97.4 F L 12/13/19 05:39 Pulse Rate 63 12/13/19 05:39 Respiratory Rate 18 12/13/19 05:39 Blood Pressure 136/82 12/13/19 05:39 O2 Sat by Pulse Oximetry (%) 95 12/13/19 05:39 Constitutional: Yes: No Distress, Calm Cardiovascular: Yes: S1, S2 Respiratory: Yes: Regular, CTA Bilaterally Gastrointestinal: Yes: Normal Bowel Sounds, Soft Extremities: Yes: Other Wound/Incision: Yes: Dressing Dry and Intact Neurological: Yes: Alert, Oriented Psychiatric: Yes: Alert, Oriented Labs: CBC, BMP 12/13/19 06:47 12/13/19 06:47 Assessment/Plan continue abx wound care
[2019-12-13] MEDS: HYDROCHLOROTHIAZIDE 12.5 MG CAPSULE (FP) PO SCH (09:21)
[2019-12-13] MEDS: PANTOPRAZOLE 20 MG TABLET PO SCH (09:21)
[2019-12-13] MEDS: VALSARTAN 80 MG TABLET (UD) PO SCH (09:21)
[2019-12-13] MEDS: SERTRALINE HCL 50 MG TABLET (FP) PO SCH (09:21)
--- NOTE | 2019-12-13 13:24 | PN ---
Progress Note, Physician - Current Medication List Current Medications: Active Medications Atorvastatin Calcium (Lipitor -) 10 mg PO HS [facility] Last Admin: 12/12/19 21:33 Dose: 10 mg Documented by: Heparin Sodium (Porcine) (Heparin -) 5,000 unit SQ TID [facility] Last Admin: 12/13/19 05:21 Dose: 5,000 unit Documented by: Hydrochlorothiazide (Hctz -) 12.5 mg PO DAILY [facility] Last Admin: 12/13/19 09:21 Dose: 12.5 mg Documented by: Piperacillin Sod/Tazobactam (Sod 3.375 gm/ Dextrose) 50 mls @ 100 mls/hr IVPB Q8H-IV [facility]; Protocol Last Admin: 12/13/19 09:21 Dose: 100 mls/hr Documented by: Pantoprazole Sodium (Protonix -) 20 mg PO DAILY [facility] Last Admin: 12/13/19 09:21 Dose: 20 mg Documented by: Sertraline HCl (Zoloft -) 50 mg PO DAILY [facility] Last Admin: 12/13/19 09:21 Dose: 50 mg Documented by: Valsartan (Diovan -) 80 mg PO DAILY [facility] Last Admin: 12/13/19 09:21 Dose: 80 mg Documented by: - Objective Vital Signs: Vital Signs Temperature 97.6 F 12/13/19 10:00 Pulse Rate 77 12/13/19 10:00 Respiratory Rate 18 12/13/19 10:00 Blood Pressure 127/68 12/13/19 10:00 O2 Sat by Pulse Oximetry (%) 97 12/13/19 10:00 Cardiovascular: Yes: S1, S2 Respiratory: Yes: Regular, CTA Bilaterally Gastrointestinal: Yes: Normal Bowel Sounds, Soft Labs: CBC, BMP 12/13/19 06:47 12/13/19 06:47 Problem List - Problems (1) Cellulitis of lower extremity Assessment/Plan: IV ABX ID CONSULT appreciated FOLLOW LABS Code(s): L03.119 - CELLULITIS OF UNSPECIFIED PART OF LIMB (2) Leg wound, left Assessment/Plan: WOUND CARE PER TEAM Code(s): S81.802A - UNSPECIFIED OPEN WOUND, LEFT LOWER LEG, INITIAL ENCOUNTER Qualifiers: Encounter type: subsequent encounter Qualified Code(s): S81.802D - Unspecified open wound, left lower leg, subsequent encounter (3) Venous stasis dermatitis of both lower extremities Assessment/Plan: ELEVATION Code(s): I87.2 - VENOUS INSUFFICIENCY (CHRONIC) (PERIPHERAL) (4) HLD (hyperlipidemia) Assessment/Plan: CONTINUE WITH MEDS Code(s): E78.5 - HYPERLIPIDEMIA, UNSPECIFIED (5) HTN (hypertension) Assessment/Plan: MONITOR Code(s): I10 - ESSENTIAL (PRIMARY) HYPERTENSION
[2019-12-13] MEDS: ATORVASTATIN CA 10 MG TABLET (FP) PO SCH (22:09)
[2019-12-14] MEDS ORDERED: DEXTROSE 5%-WATER - 50 ML IVPB ONE ×3 (01:27→17:14)
[2019-12-14] MEDS ORDERED: PIPERACILLIN/TAZOBACTAM 3.375 GM VIAL IVPB ONE ×3 (01:27→17:14)
[2019-12-14] MEDS: PIPERACILLIN/TAZOB 3.375 GM 3.375 GM in DEXTROSE 5%-WATER - 50 ML IVPB SCH ×3 (02:06→17:57)
[2019-12-14] MEDS: HEPARIN NA (PORCINE) 5,000 UNITS/ML 1ML VIAL SQ SCH ×3 (06:07→21:48)
--- NOTE | 2019-12-14 09:11 | PN ---
Progress Note, Physician - Current Medication List Current Medications: Active Medications Atorvastatin Calcium (Lipitor -) 10 mg PO HS [facility] Last Admin: 12/13/19 22:09 Dose: 10 mg Documented by: Heparin Sodium (Porcine) (Heparin -) 5,000 unit SQ TID [facility] Last Admin: 12/14/19 06:07 Dose: 5,000 unit Documented by: Hydrochlorothiazide (Hctz -) 12.5 mg PO DAILY [facility] Last Admin: 12/13/19 09:21 Dose: 12.5 mg Documented by: Piperacillin Sod/Tazobactam (Sod 3.375 gm/ Dextrose) 50 mls @ 100 mls/hr IVPB Q8H-IV [facility]; Protocol Last Admin: 12/14/19 02:06 Dose: 100 mls/hr Documented by: Pantoprazole Sodium (Protonix -) 20 mg PO DAILY [facility] Last Admin: 12/13/19 09:21 Dose: 20 mg Documented by: Sertraline HCl (Zoloft -) 50 mg PO DAILY [facility] Last Admin: 12/13/19 09:21 Dose: 50 mg Documented by: Valsartan (Diovan -) 80 mg PO DAILY [facility] Last Admin: 12/13/19 09:21 Dose: 80 mg Documented by: - Objective Vital Signs: Vital Signs Temperature 97.9 F 12/14/19 06:00 Pulse Rate 71 12/14/19 06:00 Respiratory Rate 18 12/14/19 06:00 Blood Pressure 144/87 12/14/19 06:00 O2 Sat by Pulse Oximetry (%) 97 12/14/19 06:00 Cardiovascular: Yes: Regular Rate and Rhythm Respiratory: Yes: Regular, CTA Bilaterally Gastrointestinal: Yes: Normal Bowel Sounds, Soft Edema: Yes Labs: CBC, BMP 12/13/19 06:47 12/13/19 06:47 Problem List - Problems (1) Cellulitis of lower extremity Assessment/Plan: IV ABX ID CONSULT appreciated FOLLOW LABS Code(s): L03.119 - CELLULITIS OF UNSPECIFIED PART OF LIMB (2) Leg wound, left Assessment/Plan: WOUND CARE PER TEAM Code(s): S81.802A - UNSPECIFIED OPEN WOUND, LEFT LOWER LEG, INITIAL ENCOUNTER Qualifiers: Encounter type: subsequent encounter Qualified Code(s): S81.802D - Unspecified open wound, left lower leg, subsequent encounter (3) Venous stasis dermatitis of both lower extremities Assessment/Plan: ELEVATION Code(s): I87.2 - VENOUS INSUFFICIENCY (CHRONIC) (PERIPHERAL) (4) HLD (hyperlipidemia) Assessment/Plan: CONTINUE WITH MEDS Code(s): E78.5 - HYPERLIPIDEMIA, UNSPECIFIED (5) HTN (hypertension) Assessment/Plan: MONITOR Code(s): I10 - ESSENTIAL (PRIMARY) HYPERTENSION
[2019-12-14] MEDS: SERTRALINE HCL 50 MG TABLET (FP) PO SCH (11:12)
[2019-12-14] MEDS: PANTOPRAZOLE 20 MG TABLET PO SCH (11:12)
[2019-12-14] MEDS: HYDROCHLOROTHIAZIDE 12.5 MG CAPSULE (FP) PO SCH ×2 (11:15→11:19)
[2019-12-14] MEDS: VALSARTAN 80 MG TABLET (UD) PO SCH ×2 (11:15→11:19)
--- NOTE | 2019-12-14 12:47 | CONSULT ---
- Consultation VASCULAR / WOUND CARE - Jerry Grimes Called to eval 79 yo male well known to Dr. Grimes from [facility]. Sent to ED from Wound Care on 12/10 for admission and IV ABX of chronic LLE redness, drainage, foul smell in setting of recently failed out-patient PO antibiotics. Patient recently admitted on 12/07/19 with same problem as above. Denies n/v/f/c, CP, palpitations, SOB or [place]. Denies numbness, tingling or neuropathic pain. Last Vital Signs Temp Pulse Resp BP Pulse Ox 97.9 F 71 18 144/87 97 12/14/19 06:00 12/14/19 06:00 12/14/19 06:00 12/14/19 06:00 12/14/19 06:00 CBC, BMP 12/13/19 06:47 12/13/19 06:47 Serology Tests 12/12/19 00:00 COVID-19 ([place]) Not detected PE Gen: a&o. nad LE: (dressings removed). Bilateral stasis dermatitis with excoriations (Lt > Rt). +1 pedal edema. Interdigital maceration. Slightly malodorous. Weeping edema. Dopplerable DP/PT (hard to palpate secondary to edema). Feet are warm bilat. A/P: 79 yo male w/ bilateral LE venous stasis dermatitis, LLE cellulitis. - Wash LE with warm soapy water (bilateral) daily. - IV ABX as per ID - Elevate the lower extremity above the level of the heart at all times while at rest - Bilateral compression with jessica wraps once cellulitis has receded (wrap from metacarpal heads to below knee) - Domeboro soaks QD (astringent for pruritus) - Apply Lac hydrin daily (for dry scaly skin) - No surgical intervention - Cont medical management - Patient to f/u w/ Dr. Grimes 1 week after discharge in the [facility] Above plan discussed with Dr. Grimes and agrees. Problem List - Problems (1) Venous stasis dermatitis of both lower extremities Code(s): I87.2 - VENOUS INSUFFICIENCY (CHRONIC) (PERIPHERAL) (2) HTN (hypertension) Code(s): I10 - ESSENTIAL (PRIMARY) HYPERTENSION (3) Lymphedema Code(s): I89.0 - LYMPHEDEMA, NOT ELSEWHERE CLASSIFIED (4) Cellulitis of lower extremity Code(s): L03.119 - CELLULITIS OF UNSPECIFIED PART OF LIMB Visit type - Case Type Case Type: ED Admission - Emergency Emergency Visit: Yes ED Registration Date: 12/11/19 Care time: The patient presented to the Emergency Department on the above date and was hospitalized for further evaluation of their emergent condition. - New patient This patient is new to me today: Yes Date on this admission: 12/14/19
--- NOTE | 2019-12-14 12:49 | PN ---
Progress Note, Physician History of Present Illness: stable no new issues feeling better says he thinks the wound is draining less - Current Medication List Current Medications: Active Medications Atorvastatin Calcium (Lipitor -) 10 mg PO HS [facility] Last Admin: 12/13/19 22:09 Dose: 10 mg Documented by: Heparin Sodium (Porcine) (Heparin -) 5,000 unit SQ TID [facility] Last Admin: 12/14/19 06:07 Dose: 5,000 unit Documented by: Hydrochlorothiazide (Hctz -) 12.5 mg PO DAILY [facility] Last Admin: 12/14/19 11:19 Dose: Not Given Documented by: Piperacillin Sod/Tazobactam (Sod 3.375 gm/ Dextrose) 50 mls @ 100 mls/hr IVPB Q8H-IV [facility]; Protocol Last Admin: 12/14/19 11:12 Dose: 100 mls/hr Documented by: Pantoprazole Sodium (Protonix -) 20 mg PO DAILY [facility] Last Admin: 12/14/19 11:12 Dose: 20 mg Documented by: Sertraline HCl (Zoloft -) 50 mg PO DAILY [facility] Last Admin: 12/14/19 11:12 Dose: 50 mg Documented by: Valsartan (Diovan -) 80 mg PO DAILY [facility] Last Admin: 12/14/19 11:19 Dose: Not Given Documented by: - Objective Vital Signs: Vital Signs Temperature 97.9 F 12/14/19 06:00 Pulse Rate 71 12/14/19 06:00 Respiratory Rate 18 12/14/19 06:00 Blood Pressure 144/87 12/14/19 06:00 O2 Sat by Pulse Oximetry (%) 97 12/14/19 06:00 Constitutional: Yes: No Distress, Calm Eyes: Yes: Conjunctiva Clear Cardiovascular: Yes: S1, S2 Respiratory: Yes: Regular, CTA Bilaterally Gastrointestinal: Yes: Normal Bowel Sounds, Soft Musculoskeletal: Yes: WNL Extremities: Yes: Erythema, Other Wound/Incision: Yes: Draining Neurological: Yes: Alert, Oriented Psychiatric: Yes: Alert, Oriented Labs: CBC, BMP 12/13/19 06:47 12/13/19 06:47 Assessment/Plan plan continue abx dressing wound care rest as per the team
[2019-12-14] MEDS: ATORVASTATIN CA 10 MG TABLET (FP) PO SCH (21:48)
[2019-12-15] MEDS ORDERED: PIPERACILLIN/TAZOBACTAM 3.375 GM VIAL IVPB ONE ×3 (01:44→17:28)
[2019-12-15] MEDS ORDERED: DEXTROSE 5%-WATER - 50 ML IVPB ONE ×3 (01:44→17:28)
[2019-12-15] MEDS: PIPERACILLIN/TAZOB 3.375 GM 3.375 GM in DEXTROSE 5%-WATER - 50 ML IVPB SCH ×3 (01:58→17:38)
[2019-12-15] MEDS: HEPARIN NA (PORCINE) 5,000 UNITS/ML 1ML VIAL SQ SCH ×3 (05:25→21:42)
[2019-12-15] MEDS: AMMONIUM LACTATE 12% LOTION 225 GM BOTTLE TP SCH (10:01)
[2019-12-15] MEDS: SERTRALINE HCL 50 MG TABLET (FP) PO SCH (10:02)
[2019-12-15] MEDS: PANTOPRAZOLE 20 MG TABLET PO SCH (10:02)
[2019-12-15] MEDS: HYDROCHLOROTHIAZIDE 12.5 MG CAPSULE (FP) PO SCH (10:06)
[2019-12-15] MEDS: VALSARTAN 80 MG TABLET (UD) PO SCH (10:06)
--- NOTE | 2019-12-15 11:52 | PN ---
Progress Note, Physician History of Present Illness: stable no new issues - Current Medication List Current Medications: Active Medications Atorvastatin Calcium (Lipitor -) 10 mg PO HS [facility] Last Admin: 12/14/19 21:48 Dose: 10 mg Documented by: Heparin Sodium (Porcine) (Heparin -) 5,000 unit SQ TID [facility] Last Admin: 12/15/19 05:25 Dose: 5,000 unit Documented by: Hydrochlorothiazide (Hctz -) 12.5 mg PO DAILY [facility] Last Admin: 12/15/19 10:06 Dose: 12.5 mg Documented by: Piperacillin Sod/Tazobactam (Sod 3.375 gm/ Dextrose) 50 mls @ 100 mls/hr IVPB Q8H-IV [facility]; Protocol Last Admin: 12/15/19 10:02 Dose: 100 mls/hr Documented by: Lactic Acid (Lac-Hydrin 12) 1 applic TP DAILY [facility] Last Admin: 12/15/19 10:01 Dose: 1 applic Documented by: Pantoprazole Sodium (Protonix -) 20 mg PO DAILY [facility] Last Admin: 12/15/19 10:02 Dose: 20 mg Documented by: Sertraline HCl (Zoloft -) 50 mg PO DAILY [facility] Last Admin: 12/15/19 10:02 Dose: 50 mg Documented by: Valsartan (Diovan -) 80 mg PO DAILY [facility] Last Admin: 12/15/19 10:06 Dose: 80 mg Documented by: - Objective Vital Signs: Vital Signs Temperature 97.9 F 12/15/19 05:55 Pulse Rate 79 12/15/19 05:55 Respiratory Rate 18 12/15/19 05:55 Blood Pressure 105/64 12/15/19 05:55 O2 Sat by Pulse Oximetry (%) 96 12/15/19 05:55 Constitutional: Yes: No Distress, Calm Cardiovascular: Yes: S1, S2 Respiratory: Yes: Regular, CTA Bilaterally Gastrointestinal: Yes: Normal Bowel Sounds, Soft Musculoskeletal: Yes: WNL Extremities: Yes: Other Wound/Incision: Yes: Dressing Dry and Intact Neurological: Yes: Alert, Oriented Psychiatric: Yes: Alert, Oriented Labs: CBC, BMP 12/13/19 06:47 12/13/19 06:47 Assessment/Plan plan continue abx dressing wound care rest as per the team
--- NOTE | 2019-12-15 14:18 | PN ---
Progress Note, Physician Chief Complaint: LLE infected wound History of Present Illness: 79yo M pmh htn, hld, peripheral vascular disease s/p bilateral surgery, presenting from wound care clinic with LLE redness, drainage, foul smell in setting of recently failed outpatient PO antibiotic. Patient denies fevers, chills, nausea, vomiting, pain with ambulation, pain in the extremity. Reports a course of outpatient antibiotics for 1 week started 3 weeks ago without a change in the wound. Denies any other complaints - no chest pain, SOB, abdominal pain, weakness, nausea, vomiting, other concerns. patient had come to the er and then had left on the he mentions that he has no recollection of the events that time and does not remember anything - Current Medication List Current Medications: Active Medications Atorvastatin Calcium (Lipitor -) 10 mg PO HS [facility] Last Admin: 12/14/19 21:48 Dose: 10 mg Documented by: Heparin Sodium (Porcine) (Heparin -) 5,000 unit SQ TID [facility] Last Admin: 12/15/19 05:25 Dose: 5,000 unit Documented by: Hydrochlorothiazide (Hctz -) 12.5 mg PO DAILY [facility] Last Admin: 12/15/19 10:06 Dose: 12.5 mg Documented by: Piperacillin Sod/Tazobactam (Sod 3.375 gm/ Dextrose) 50 mls @ 100 mls/hr IVPB Q8H-IV [facility]; Protocol Last Admin: 12/15/19 10:02 Dose: 100 mls/hr Documented by: Lactic Acid (Lac-Hydrin 12) 1 applic TP DAILY [facility] Last Admin: 12/15/19 10:01 Dose: 1 applic Documented by: Pantoprazole Sodium (Protonix -) 20 mg PO DAILY [facility] Last Admin: 12/15/19 10:02 Dose: 20 mg Documented by: Sertraline HCl (Zoloft -) 50 mg PO DAILY [facility] Last Admin: 12/15/19 10:02 Dose: 50 mg Documented by: Valsartan (Diovan -) 80 mg PO DAILY [facility] Last Admin: 12/15/19 10:06 Dose: 80 mg Documented by: - Objective Vital Signs: Vital Signs Temperature 98.1 F 12/15/19 13:46 Pulse Rate 61 12/15/19 13:46 Respiratory Rate 20 12/15/19 13:46 Blood Pressure 112/61 12/15/19 13:46 O2 Sat by Pulse Oximetry (%) 97 12/15/19 13:46 Constitutional: Yes: Well Nourished, No Distress, Calm Cardiovascular: Yes: Regular Rate and Rhythm Respiratory: Yes: Regular, CTA Bilaterally Gastrointestinal: Yes: Normal Bowel Sounds, Soft Genitourinary: Yes: WNL Musculoskeletal: Yes: Muscle Weakness Extremities: Yes: WNL Edema: Yes (LLE non pitting edema) Peripheral Pulses WNL: Yes Neurological: Yes: Alert, Oriented Psychiatric: Yes: Alert, Oriented Labs: CBC, BMP 12/13/19 06:47 12/13/19 06:47 Problem List - Problems (1) Cellulitis of left lower extremity Assessment/Plan: -ID consult -IV abx -Local wound care -Seen by Vascular surgery -Wash LE with warm soapy water (bilateral) daily. -LLE elevation - No surgical intervention -Follow up Dr. Grimes 1 week after discharge at Wound care center Problems reviewed: Yes Code(s): L03.116 - CELLULITIS OF LEFT LOWER LIMB (2) Venous (peripheral) insufficiency Problems reviewed: Yes Code(s): I87.2 - VENOUS INSUFFICIENCY (CHRONIC) (PERIPHERAL) Assessment/Plan See problem list
[2019-12-15] MEDS: ATORVASTATIN CA 10 MG TABLET (FP) PO SCH (21:41)
[2019-12-16] MEDS ORDERED: PIPERACILLIN/TAZOBACTAM 3.375 GM VIAL IVPB ONE ×3 (02:01→16:02)
[2019-12-16] MEDS ORDERED: DEXTROSE 5%-WATER - 50 ML IVPB ONE ×3 (02:01→16:02)
[2019-12-16] MEDS: PIPERACILLIN/TAZOB 3.375 GM 3.375 GM in DEXTROSE 5%-WATER - 50 ML IVPB SCH ×3 (02:14→18:46)
[2019-12-16] MEDS: HEPARIN NA (PORCINE) 5,000 UNITS/ML 1ML VIAL SQ SCH ×3 (06:49→21:42)
--- NOTE | 2019-12-16 09:23 | PDOC ---
Documentation entered by Thais Eemrson SCRIBE, acting as scribe for Jamil Willson MD. Jamil Willson MD: This documentation has been prepared by the lindsayibeKi Ana, SCRIBE, under my direction and personally reviewed by me in its entirety. I confirm that the documentation accurately reflects all work, treatment, procedures, and medical decision making performed by me. Attending Attestation - Resident Resident Name: Andrea Vo - ED Attending Attestation I have performed the following: I have examined & evaluated the patient, The case was reviewed & discussed with the resident, I agree w/resident's findings & plan, Exceptions are as noted - HPI HPI: 12/11/19 11:49 Patient is a 79 year old male with a significant past medical history of HTN and HLD, presenting to the ED with worsening LLE redness and swelling. Pt notes that this first began about 2 months ago. He was admitted and tx'ed with IV abx and subsequently DC'ed with a course of PO abx. However, he notes that the redness has worsened. He was seen at wound care clinic today and instructed to come to the ED for IV abx. Allergies: NKDA - Physicial Exam PE: 12/11/19 11:50 See resident exam. - Medical Decision Making 12/11/19 13:10 79 M with LLE redness/swelling, concern for cellulitis. Failed outpt tx. - Labs, cultures - IV abx - C/s Dr. Sultana, Dr. Grimes Discharge - Discharge Information Problems reviewed: Yes Clinical Impression/Diagnosis: Venous stasis dermatitis of both lower extremities Leg wound, left Qualifiers: Encounter type: subsequent encounter Qualified Code(s): S81.802D - Unspecified open wound, left lower leg, subsequent encounter Condition: Guarded - Follow up/Referral - Patient Discharge Instructions - Post Discharge Activity
--- NOTE | 2019-12-16 10:37 | PN ---
Progress Note, Physician History of Present Illness: stable no new issues - Current Medication List Current Medications: Active Medications Atorvastatin Calcium (Lipitor -) 10 mg PO HS [facility] Last Admin: 12/15/19 21:41 Dose: 10 mg Documented by: Heparin Sodium (Porcine) (Heparin -) 5,000 unit SQ TID [facility] Last Admin: 12/16/19 06:49 Dose: 5,000 unit Documented by: Hydrochlorothiazide (Hctz -) 12.5 mg PO DAILY [facility] Last Admin: 12/15/19 10:06 Dose: 12.5 mg Documented by: Piperacillin Sod/Tazobactam (Sod 3.375 gm/ Dextrose) 50 mls @ 100 mls/hr IVPB Q8H-IV [facility]; Protocol Last Admin: 12/16/19 02:14 Dose: 100 mls/hr Documented by: Lactic Acid (Lac-Hydrin 12) 1 applic TP DAILY [facility] Last Admin: 12/15/19 10:01 Dose: 1 applic Documented by: Pantoprazole Sodium (Protonix -) 20 mg PO DAILY [facility] Last Admin: 12/15/19 10:02 Dose: 20 mg Documented by: Sertraline HCl (Zoloft -) 50 mg PO DAILY [facility] Last Admin: 12/15/19 10:02 Dose: 50 mg Documented by: Valsartan (Diovan -) 80 mg PO DAILY [facility] Last Admin: 12/15/19 10:06 Dose: 80 mg Documented by: - Objective Vital Signs: Vital Signs Temperature 97.8 F 12/16/19 06:18 Pulse Rate 65 12/16/19 06:18 Respiratory Rate 18 12/16/19 06:18 Blood Pressure 117/63 12/16/19 06:18 O2 Sat by Pulse Oximetry (%) 95 12/16/19 06:18 Constitutional: Yes: No Distress, Calm Cardiovascular: Yes: S1, S2 Respiratory: Yes: Regular, CTA Bilaterally Gastrointestinal: Yes: Normal Bowel Sounds, Soft Musculoskeletal: Yes: WNL Extremities: Yes: Other Neurological: Yes: Alert, Oriented Psychiatric: Yes: Alert, Oriented Labs: CBC, BMP 12/13/19 06:47 12/13/19 06:47 Assessment/Plan plan continue abx dressing wound care rest as per the team
[2019-12-16] MEDS: SERTRALINE HCL 50 MG TABLET (FP) PO SCH (10:40)
[2019-12-16] MEDS: AMMONIUM LACTATE 12% LOTION 225 GM BOTTLE TP SCH (10:40)
[2019-12-16] MEDS: VALSARTAN 80 MG TABLET (UD) PO SCH (10:40)
[2019-12-16] MEDS: HYDROCHLOROTHIAZIDE 12.5 MG CAPSULE (FP) PO SCH (10:40)
[2019-12-16] MEDS: PANTOPRAZOLE 20 MG TABLET PO SCH (10:41)
--- NOTE | 2019-12-16 10:41 | PN ---
Progress Note, Physician Chief Complaint: LLE infected wound History of Present Illness: 79yo M pmh htn, hld, peripheral vascular disease s/p bilateral surgery, presenting from wound care clinic with LLE redness, drainage, foul smell in setting of recently failed outpatient PO antibiotic. Patient denies fevers, chills, nausea, vomiting, pain with ambulation, pain in the extremity. Reports a course of outpatient antibiotics for 1 week started 3 weeks ago without a change in the wound. Denies any other complaints - no chest pain, SOB, abdominal pain, weakness, nausea, vomiting, other concerns. Has been getting IV Zosyn - Current Medication List Current Medications: Active Medications Atorvastatin Calcium (Lipitor -) 10 mg PO HS [facility] Last Admin: 12/15/19 21:41 Dose: 10 mg Documented by: Heparin Sodium (Porcine) (Heparin -) 5,000 unit SQ TID [facility] Last Admin: 12/16/19 06:49 Dose: 5,000 unit Documented by: Hydrochlorothiazide (Hctz -) 12.5 mg PO DAILY [facility] Last Admin: 12/15/19 10:06 Dose: 12.5 mg Documented by: Piperacillin Sod/Tazobactam (Sod 3.375 gm/ Dextrose) 50 mls @ 100 mls/hr IVPB Q8H-IV BOWEN; Protocol Last Admin: 12/16/19 02:14 Dose: 100 mls/hr Documented by: Lactic Acid (Lac-Hydrin 12) 1 applic TP DAILY [facility] Last Admin: 12/15/19 10:01 Dose: 1 applic Documented by: Pantoprazole Sodium (Protonix -) 20 mg PO DAILY [facility] Last Admin: 12/15/19 10:02 Dose: 20 mg Documented by: Sertraline HCl (Zoloft -) 50 mg PO DAILY [facility] Last Admin: 12/15/19 10:02 Dose: 50 mg Documented by: Valsartan (Diovan -) 80 mg PO DAILY [facility] Last Admin: 12/15/19 10:06 Dose: 80 mg Documented by: - Objective Vital Signs: Vital Signs Temperature 97.8 F 12/16/19 06:18 Pulse Rate 65 12/16/19 06:18 Respiratory Rate 18 12/16/19 06:18 Blood Pressure 117/63 12/16/19 06:18 O2 Sat by Pulse Oximetry (%) 95 12/16/19 06:18 Constitutional: Yes: Well Nourished, No Distress, Calm Cardiovascular: Yes: Regular Rate and Rhythm Respiratory: Yes: Regular, CTA Bilaterally Gastrointestinal: Yes: Normal Bowel Sounds, Soft Genitourinary: Yes: WNL Musculoskeletal: Yes: WNL Extremities: Yes: WNL Edema: No Peripheral Pulses WNL: Yes Wound/Incision: Yes: Dressing Dry and Intact Neurological: Yes: Alert, Oriented Psychiatric: Yes: Alert, Oriented Labs: CBC, BMP 12/13/19 06:47 12/13/19 06:47 Problem List - Problems (1) Cellulitis of left lower extremity Assessment/Plan: -ID consult -IV abx -Local wound care -Seen by Vascular surgery -Wash LE with warm soapy water (bilateral) daily. -LLE elevation -No surgical intervention -Follow up Dr. Grimes 1 week after discharge at Wound care center Problems reviewed: Yes Code(s): L03.116 - CELLULITIS OF LEFT LOWER LIMB (2) Venous (peripheral) insufficiency Problems reviewed: Yes Code(s): I87.2 - VENOUS INSUFFICIENCY (CHRONIC) (PERIPHERAL) Assessment/Plan See problem list
[2019-12-16] MEDS: ATORVASTATIN CA 10 MG TABLET (FP) PO SCH (21:42)
[2019-12-17] MEDS ORDERED: DEXTROSE 5%-WATER - 50 ML IVPB ONE ×2 (01:09→09:21)
[2019-12-17] MEDS ORDERED: PIPERACILLIN/TAZOBACTAM 3.375 GM VIAL IVPB ONE ×2 (01:09→09:21)
[2019-12-17] MEDS: PIPERACILLIN/TAZOB 3.375 GM 3.375 GM in DEXTROSE 5%-WATER - 50 ML IVPB SCH ×2 (01:20→09:29)
[2019-12-17] MEDS: HEPARIN NA (PORCINE) 5,000 UNITS/ML 1ML VIAL SQ SCH ×2 (05:44→15:22)
--- NOTE | 2019-12-17 07:54 | PN ---
Progress Note, Physician History of Present Illness: stable doing well leg has improved - Current Medication List Current Medications: Active Medications Atorvastatin Calcium (Lipitor -) 10 mg PO HS [facility] Last Admin: 12/16/19 21:42 Dose: 10 mg Documented by: Heparin Sodium (Porcine) (Heparin -) 5,000 unit SQ TID [facility] Last Admin: 12/17/19 05:44 Dose: 5,000 unit Documented by: Hydrochlorothiazide (Hctz -) 12.5 mg PO DAILY [facility] Last Admin: 12/16/19 10:40 Dose: 12.5 mg Documented by: Piperacillin Sod/Tazobactam (Sod 3.375 gm/ Dextrose) 50 mls @ 100 mls/hr IVPB Q8H-IV BOWEN; Protocol Last Admin: 12/17/19 01:20 Dose: 100 mls/hr Documented by: Lactic Acid (Lac-Hydrin 12) 1 applic TP DAILY [facility] Last Admin: 12/16/19 10:40 Dose: 1 applic Documented by: Pantoprazole Sodium (Protonix -) 20 mg PO DAILY [facility] Last Admin: 12/16/19 10:41 Dose: 20 mg Documented by: Sertraline HCl (Zoloft -) 50 mg PO DAILY [facility] Last Admin: 12/16/19 10:40 Dose: 50 mg Documented by: Valsartan (Diovan -) 80 mg PO DAILY [facility] Last Admin: 12/16/19 10:40 Dose: 80 mg Documented by: - Objective Vital Signs: Vital Signs Temperature 98.5 F 12/17/19 06:00 Pulse Rate 66 12/17/19 06:00 Respiratory Rate 18 12/17/19 06:00 Blood Pressure 116/57 L 12/17/19 06:00 O2 Sat by Pulse Oximetry (%) 96 12/17/19 06:00 Constitutional: Yes: No Distress, Calm Cardiovascular: Yes: S1, S2 Respiratory: Yes: Regular, CTA Bilaterally Gastrointestinal: Yes: Normal Bowel Sounds, Soft Musculoskeletal: Yes: WNL Extremities: Yes: Erythema (improved), Other Wound/Incision: Yes: Dressing Dry and Intact Neurological: Yes: Alert, Oriented Labs: CBC, BMP 12/13/19 06:47 12/13/19 06:47 Assessment/Plan plan continue abx dressing wound care rest as per the team can be cahnged to levaquin 750mg daily for another 8 days follow up in the wound care
--- NOTE | 2019-12-17 08:11 | DS ---
Physical Examination Vital Signs: Vital Signs Temperature 98.5 F 12/17/19 06:00 Pulse Rate 66 12/17/19 06:00 Respiratory Rate 18 12/17/19 06:00 Blood Pressure 116/57 L 12/17/19 06:00 O2 Sat by Pulse Oximetry (%) 96 12/17/19 06:00 Findings/Remarks: 79yo M pmh htn, hld, peripheral vascular disease s/p bilateral surgery, presenting from wound care clinic with LLE redness, drainage, foul smell in setting of recently failed outpatient PO antibiotic. Patient denies fevers, chills, nausea, vomiting, pain with ambulation, pain in the extremity. Reports a course of outpatient antibiotics for 1 week started 3 weeks ago without a change in the wound. Denies any other complaints - no chest pain, SOB, abdominal pain, weakness, nausea, vomiting, other concerns. (1) Cellulitis of left lower extremity Assessment/Plan: -ID consult -IV abx zosyn completed for 6 days, transition to Levaquin 750 mg po daily x 8 days -Local wound care -Seen by Vascular surgery, follow up at the wound care center -Wash LE with warm soapy water (bilateral) daily. -LLE elevation -No surgical intervention -Follow up Dr. Grimes 1 week after discharge at Wound care center Problems reviewed: Yes Code(s): L03.116 - CELLULITIS OF LEFT LOWER LIMB (2) Venous (peripheral) insufficiency Problems reviewed: Yes Code(s): I87.2 - VENOUS INSUFFICIENCY (CHRONIC) (PERIPHERAL) Assessment/Plan See problem list Constitutional: Yes: Well Nourished, No Distress, Calm Cardiovascular: Yes: Regular Rate and Rhythm Respiratory: Yes: Regular, CTA Bilaterally Gastrointestinal: Yes: Normal Bowel Sounds, Soft Musculoskeletal: Yes: Muscle Weakness Edema: Yes (LLE) Peripheral Pulses WNL: Yes Wound/Incision: Yes: Dressing Dry and Intact Neurological: Yes: Alert, Oriented Psychiatric: Yes: Alert, Oriented Labs: CBC, BMP 12/13/19 06:47 12/13/19 06:47 Discharge Summary Problems reviewed: Yes Reason For Visit: PERIPHERAL VENOUS INSUFFICIENCY L LEG WOUND Current Active Problems Cellulitis of left lower extremity (Acute) Leg wound, left (Acute) 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) Condition: Guarded - Instructions Referrals: Catracho Sultana MD [Staff Physician] - Nicolasa Don [Primary Care Provider] - Jerry Grimes DO [Staff Physician] - Disposition: [facility]/HOME HEALTH CARE - Home Medications Comprehensive Discharge Medication List: Ambulatory Orders Sertraline HCl [Zoloft -] 50 mg PO DAILY 10/12/19 Simvastatin 20 mg PO DAILY 10/12/19 Valsartan/Hydrochlorothiazide [Valsartan-Hctz 80-12.5 mg Tab] 1 tablet PO DAILY 10/12/19 Ammonium Lactate Lotion [Lac-Hydrin 12] 1 applic TP DAILY #1 bottle 12/17/19 Pantoprazole Sodium [Protonix -] 20 mg PO DAILY #30 tablet.ec 12/17/19 levoFLOXacin [Levaquin] 750 mg PO DAILY #8 tab 12/17/19 Prescription Drug Monitoring Program (I-STOP) results: I-STOP reviewed and no issues identified
[2019-12-17] MEDS: SERTRALINE HCL 50 MG TABLET (FP) PO SCH (09:30)
[2019-12-17] MEDS: VALSARTAN 80 MG TABLET (UD) PO SCH (09:30)
[2019-12-17] MEDS: HYDROCHLOROTHIAZIDE 12.5 MG CAPSULE (FP) PO SCH (09:30)
[2019-12-17] MEDS: AMMONIUM LACTATE 12% LOTION 225 GM BOTTLE TP SCH (09:31)
[2019-12-17] MEDS: PANTOPRAZOLE 20 MG TABLET PO SCH (09:31)
[2019-12-17 09:49] VITALS: BP 114/63; PULSE 73; TEMP 98
== END 2019-12-17 15:00 | disposition home health service (06) | DRG 603 ==
LOC: JER 10:51 → JERBED 16:19 → J7W 22:47
PROVIDERS: ADMIT Family Medicine; ATTEND Family Medicine
DX: L03.116 Cellulitis of left lower limb (principal); L97.929 Non-pressure chronic ulcer of unspecified part of left lower leg with unspecified severity; I87.2 Venous insufficiency (chronic) (peripheral); I10 Essential (primary) hypertension; E78.5 Hyperlipidemia, unspecified
CPT/HCPCS: 36415; 80053; 82962; 83735; 84443; 85025; 85651; 86140; 87040; 97116-GP; 97162-GP; 99285-25; G0463-25; J1644; U0003

== ENCOUNTER 2020-05-18 09:45 | Inpatient (IN) | payer OTHER, MEDICARE ==
[2020-05-18 09:55] VITALS: BMI 32.5
[2020-05-18] MEDS ORDERED: SODIUM CHLORIDE 1,000 ML IV STA (10:40)
[2020-05-18 11:16] LABS: BASO % 0.6 % (0-2.0); EOS % 3.6 % (0-4.5); HEMATOCRIT 35.9 % (35.4-49); HEMOGLOBIN 11.9 GM/dL (11.7-16.9); LYMPH % 10.2 % (8-40); MCH 28.1 pg (25.7-33.7); MEAN CELL VOLUME 85.1 fl (80-96); MEAN PLT VOLUME 8.1 fl (7.5-11.1); MONO % 11.2 % (3.8-10.2); NEUT % 74.4 % (42.8-82.8); PLATELET COUNT 164 K/MM3 (134-434); RBC 4.22 M/mm3 (4.00-5.60); RDW 16.6 % (11.9-15.9); WHITE BLOOD COUNT 5.3 K/mm3 (4.0-10.0)
[2020-05-18 11:29] LABS: CHLORIDE 105 mmol/L (98-107); POTASSIUM 5.1 mmol/L (3.5-5.1); SODIUM 140 mmol/L (136-145); URINE APPEARANCE CLEAR; URINE BILIRUBIN NEGATIVE (NEGATIVE); URINE COLOR YELLOW; URINE GLUCOSE (UA) NEGATIVE (NEGATIVE); URINE KETONE NEGATIVE (NEGATIVE); URINE LEUK ESTERASE NEGATIVE (NEGATIVE); URINE NITRITE NEGATIVE (NEGATIVE); URINE PROTEIN NEGATIVE (NEGATIVE); URINE UROBILINOGEN 0.2 mg/dL (0.2-1.0)
[2020-05-18 11:32] LABS: ALBUMIN 3.5 g/dl (3.4-5.0); ANION GAP 7 MMOL/L (8-16); CALCIUM 9.3 mg/dL (8.5-10.1); CO2 28 mmol/L (21-32); GLUCOSE,RANDOM 143 mg/dL (74-106)
[2020-05-18 11:33] LABS: BLOOD UREA NITROGEN 21.6 mg/dL (7-18)
[2020-05-18 11:36] LABS: SGOT/AST 37 U/L (15-37); SGPT/ALT 20 U/L (13-61)
[2020-05-18 11:37] LABS: BILIRUBIN,TOTAL 0.6 mg/dL (0.2-1); TOT PROT 7.1 g/dl (6.4-8.2)
[2020-05-18 11:38] LABS: ALK PHOS 77 U/L (45-117)
[2020-05-18 11:42] LABS: COCAINE, UR NEGATIVE ng/ml (CUTOFF=300); METHADONE, UR NEGATIVE ng/ml (CUTOFF=300); OPIATES, URI NEGATIVE ng/ml (CUTOFF=300); PHENCYCLIDINE,URINE NEGATIVE ng/ml (CUTOFF=25); URINE BENZODIAZEPINES NEGATIVE ng/ml (CUTOFF=200)
[2020-05-18 11:43] LABS: URINE AMPHETAMINES NEGATIVE ng/ml (CUTOFF=500)
[2020-05-18 11:47] LABS: URINE BARBITURATES NEGATIVE ng/ml (CUTOFF=200)
[2020-05-18] MEDS ORDERED: ACETAMINOPHEN 325 MG TABLET (FP) PO PRN (16:23)
[2020-05-18 16:35] LABS: INR 1.03 (0.83-1.09); PROTHROMBIN TIME (PATIENT) 12.6 SEC (9.7-13.0)
[2020-05-18 16:37] LABS: ACTIVATED PTT 33.3 SECONDS (25.2-36.5)
[2020-05-18] MEDS ORDERED: ATENOLOL 25 MG TABLET (FP) ONE (16:52)
[2020-05-18] MEDS ORDERED: ASPIRIN 81 MG CHEWABLE TABLETS ONE (16:52)
[2020-05-18] MEDS: ATENOLOL 25 MG TABLET (FP) PO SCH (16:58)
[2020-05-18] MEDS: ASPIRIN COATED 81 MG TABLET.EC PO SCH (16:58)
[2020-05-18] MEDS: SENNOSIDES 8.6MG TABLET (FP) PO SCH (22:30)
[2020-05-18] MEDS: ATORVASTATIN CA 40 MG TABLET (FP) PO SCH (22:30)
[2020-05-19 08:08] LABS: BASO % 0.6 % (0-2.0); EOS % 3.9 % (0-4.5); HEMATOCRIT 32.3 % (35.4-49); HEMOGLOBIN 10.9 GM/dL (11.7-16.9); MCH 28.9 pg (25.7-33.7); MCHC 33.8 g/dl (32.0-35.9); MEAN CELL VOLUME 85.4 fl (80-96); MEAN PLT VOLUME 7.8 fl (7.5-11.1); MONO % 10.1 % (3.8-10.2); NEUT % 75.4 % (42.8-82.8); PLATELET COUNT 153 K/MM3 (134-434); RBC 3.78 M/mm3 (4.00-5.60); RDW 16.6 % (11.9-15.9); WHITE BLOOD COUNT 5.5 K/mm3 (4.0-10.0)
[2020-05-19 08:30] LABS: POTASSIUM 4.1 mmol/L (3.5-5.1)
[2020-05-19 08:36] LABS: BLOOD UREA NITROGEN 16.6 mg/dL (7-18); CALCIUM 8.8 mg/dL (8.5-10.1)
[2020-05-19 08:39] LABS: CREATININE 0.8 mg/dL (0.55-1.3)
[2020-05-19 08:41] LABS: BILIRUBIN,TOTAL 0.5 mg/dL (0.2-1)
[2020-05-19] MEDS: ATENOLOL 25 MG TABLET (FP) PO SCH (09:57)
[2020-05-19] MEDS: ASPIRIN COATED 81 MG TABLET.EC PO SCH ×3 (09:57→11:02)
[2020-05-19] MEDS: PANTOPRAZOLE SODIUM 40 MG VIAL IVPUSH SCH ×2 (09:58→10:54)
[2020-05-19] MEDS: SERTRALINE HCL 50 MG TABLET (FP) PO SCH ×2 (10:54→11:02)
[2020-05-19] MEDS: SENNOSIDES 8.6MG TABLET (FP) PO SCH (23:08)
[2020-05-19] MEDS: ATORVASTATIN CA 40 MG TABLET (FP) PO SCH (23:08)
[2020-05-20 08:28] LABS: HEMATOCRIT 33.2 % (35.4-49); HEMOGLOBIN 11.2 GM/dL (11.7-16.9); MCH 28.9 pg (25.7-33.7); MCHC 33.7 g/dl (32.0-35.9); MEAN CELL VOLUME 85.7 fl (80-96); PLATELET COUNT 157 K/MM3 (134-434); RBC 3.88 M/mm3 (4.00-5.60); RDW 15.8 % (11.9-15.9); WHITE BLOOD COUNT 6.4 K/mm3 (4.0-10.0)
[2020-05-20 08:58] LABS: POTASSIUM 4.1 mmol/L (3.5-5.1)
[2020-05-20 09:08] LABS: ALBUMIN 3.1 g/dl (3.4-5.0); BLOOD UREA NITROGEN 20.9 mg/dL (7-18); CALCIUM 8.8 mg/dL (8.5-10.1)
[2020-05-20 09:11] LABS: CREATININE 0.9 mg/dL (0.55-1.3)
[2020-05-20 09:12] LABS: TOT PROT 6.2 g/dl (6.4-8.2)
[2020-05-20 09:13] LABS: BILIRUBIN,TOTAL 0.7 mg/dL (0.2-1)
[2020-05-20] MEDS: SERTRALINE HCL 50 MG TABLET (FP) PO SCH (09:47)
[2020-05-20] MEDS: ATENOLOL 25 MG TABLET (FP) PO SCH (09:47)
[2020-05-20] MEDS: ASPIRIN COATED 81 MG TABLET.EC PO SCH (09:47)
[2020-05-20] MEDS ORDERED: PANTOPRAZOLE 40 MG TABLET PO SCH (10:00)
[2020-05-20 20:44] VITALS: BP 138/82; PULSE 72; TEMP 98.8
[2020-05-20] MEDS: ATORVASTATIN CA 40 MG TABLET (FP) PO SCH (21:23)
[2020-05-20] MEDS: SENNOSIDES 8.6MG TABLET (FP) PO SCH (21:23)
== END 2020-05-20 22:22 | DRG 71 ==
LOC: JER 09:45 → JERBED 15:23 → J6WEST-2 23:19
PROVIDERS: ADMIT Family Medicine; ATTEND Family Medicine
DX: G93.41 Metabolic encephalopathy (principal); I45.2 Bifascicular block; R41.82 Altered mental status, unspecified; I10 Essential (primary) hypertension; E78.5 Hyperlipidemia, unspecified; G30.9 Alzheimer's disease, unspecified; J44.9 Chronic obstructive pulmonary disease, unspecified; Z96.653 Presence of artificial knee joint, bilateral; F02.80 Dementia in other diseases classified elsewhere, unspecified severity, without behavioral disturbance, psychotic disturbance, mood disturbance, and anxiety; I45.10 Unspecified right bundle-branch block
CPT/HCPCS: 29581-LT; 36415; 70450-TC; 70551-TC; 71045-TC-FY; 80053; 80061; 80307; 81003; 82140; 82550; 82607; 82962; 83036; 83721; 84443; 84484; 85025; 85027; 85610; 85730; 86850; 86900; 86901; 87086; 93005; 93010; 93880-TC; 97116-GP; 97162-GP; 99291; C9803; G0463-25; U0003

== ENCOUNTER 2020-06-26 10:07 | Inpatient (IN) | payer OTHER, MEDICARE ==
[2020-06-26 10:48] LABS: BASO % 0.2 % (0-2.0); HEMATOCRIT 44.7 % (35.4-49); HEMOGLOBIN 15.1 GM/dL (11.7-16.9); LYMPH % 5.5 % (8-40); MCH 28.2 pg (25.7-33.7); MCHC 33.8 g/dl (32.0-35.9); MEAN CELL VOLUME 83.4 fl (80-96); MEAN PLT VOLUME 9.6 fl (7.5-11.1); MONO % 6.4 % (3.8-10.2); NEUT % 87.9 % (42.8-82.8); PLATELET COUNT 229 K/MM3 (134-434); RBC 5.36 M/mm3 (4.00-5.60); RDW 14.4 % (11.9-15.9)
[2020-06-26 10:54] LABS: INR 1.28 (0.83-1.09); PROTHROMBIN TIME (PATIENT) 15.6 SEC (9.7-13.0)
[2020-06-26 10:56] LABS: ACTIVATED PTT 29.1 SECONDS (25.2-36.5)
[2020-06-26 11:16] LABS: ALBUMIN 3.7 g/dl (3.4-5.0); BLOOD UREA NITROGEN 89.5 mg/dL (7-18); CALCIUM 9.4 mg/dL (8.5-10.1); MAGNESIUM 2.3 mg/dL (1.8-2.4)
[2020-06-26 11:19] LABS: CREATININE 4.6 mg/dL (0.55-1.3)
[2020-06-26 11:20] LABS: PHOSPHOROUS 3.8 mg/dL (2.5-4.9)
[2020-06-26 11:21] LABS: BILIRUBIN,TOTAL 0.8 mg/dL (0.2-1); TOT PROT 7.5 g/dl (6.4-8.2)
[2020-06-26 11:25] LABS: N-TERMINAL BNP 4720.4 pg/ml (5-450)
[2020-06-26] MEDS ORDERED: CEFTRIAXONE 1 GM in DEXTROSE 5%-WATER - 50 ML IVPB ONE (14:32)
[2020-06-26] MEDS ORDERED: AZITHROMYCIN IVPB 500 MG in DEXTROSE 5%-WATER - 250 ML IVPB ONE (14:32)
[2020-06-26] MEDS ORDERED: DEXAMETHASONE SOD PHOSPHATE 10 MG/1 ML VIAL IVPUSH ONE (14:32)
[2020-06-26] MEDS ORDERED: CEFTRIAXONE 1 GM/50 ML BAG ONE (14:52)
[2020-06-26] MEDS ORDERED: DEXAMETHASONE SOD PHOSPHATE 10 MG/1 ML VIAL ONE (14:52)
[2020-06-26] MEDS ORDERED: AZITHROMYCIN IVPB 500 MG/250 ML BAG IVPB ONE (14:52)
[2020-06-26] MEDS ORDERED: ONDANSETRON 4 MG/2 ML VIAL IVPB PRN (18:16)
[2020-06-26] MEDS ORDERED: ACETAMINOPHEN 1000 MG/100 ML VIAL (NON FORMULARY) IVPB PRN (18:16)
[2020-06-26] MEDS ORDERED: MORPHINE SULFATE 2 MG/ML VIAL IVPUSH PRN ×2 (18:16)
[2020-06-26] MEDS ORDERED: SODIUM CHLORIDE 1,000 ML IV SCH (18:30)
[2020-06-26 19:40] LABS: EPI CELLS >36 /uL (0-25.1); HYALINE CASTS 40 /uL (0-3.1); URINE APPEARANCE TURBID; URINE BACTERIA 25 /uL (0-1359); URINE BILIRUBIN NEGATIVE (NEGATIVE); URINE COLOR DK YELLOW; URINE GLUCOSE (UA) NEGATIVE (NEGATIVE); URINE KETONE TRACE (NEGATIVE); URINE LEUK ESTERASE 1+ (NEGATIVE); URINE NITRITE NEGATIVE (NEGATIVE); URINE PROTEIN 2+ (NEGATIVE); URINE WBC 146 /uL (0-25.8)
[2020-06-26 20:19] LABS: URINE RBC 1748.8 /uL (0-23.9)
[2020-06-26] MEDS: INSULIN SLIDING SCALE (NOVOLOG) 1 VIAL SQ SCH (22:57)
[2020-06-26] MEDS ORDERED: HEPARIN NA (PORCINE) 5,000 UNITS/ML 1ML VIAL ONE (23:13)
[2020-06-26] MEDS: HEPARIN NA (PORCINE) 5,000 UNITS/ML 1ML VIAL SQ SCH (23:18)
[2020-06-27] MEDS ORDERED: HEPARIN NA (PORCINE) 5,000 UNITS/ML 1ML VIAL ONE (06:16)
[2020-06-27] MEDS: HEPARIN NA (PORCINE) 5,000 UNITS/ML 1ML VIAL SQ SCH ×3 (06:16→21:09)
[2020-06-27 08:07] LABS: HEMATOCRIT 36.7 % (35.4-49); HEMOGLOBIN 12.7 GM/dL (11.7-16.9); LYMPH % 6.2 % (8-40); MCH 28.4 pg (25.7-33.7); MCHC 34.7 g/dl (32.0-35.9); MEAN CELL VOLUME 81.8 fl (80-96); MEAN PLT VOLUME 9.9 fl (7.5-11.1); MONO % 7.2 % (3.8-10.2); NEUT % 86.6 % (42.8-82.8); PLATELET COUNT 153 K/MM3 (134-434); RBC 4.48 M/mm3 (4.00-5.60); RDW 14.4 % (11.9-15.9); WHITE BLOOD COUNT 6.3 K/mm3 (4.0-10.0)
[2020-06-27] MEDS ORDERED: fentaNYL CITRATE 250 MCG/5 ML VIAL ONE (08:07)
[2020-06-27] MEDS ORDERED: DEXAMETHASONE SOD PHOSPHATE 4 MG/1 ML VIAL ONE (08:07)
[2020-06-27] MEDS ORDERED: LIDOCAINE HCL/PF 2% SDV 5ML VIAL ONE (08:07)
[2020-06-27] MEDS ORDERED: PROPOFOL 20 ML ONE ×3 (08:08)
[2020-06-27] MEDS ORDERED: ROCURONIUM BROMIDE 50 MG/5 ML SYRINGE ONE (08:08)
[2020-06-27] MEDS ORDERED: SUCCINYLCHOLINE CHLORIDE 200 MG/10 ML SYRINGE ONE (08:08)
[2020-06-27] MEDS ORDERED: GLYCOPYRROLATE 0.2 MG/1 ML VIAL ONE (08:09)
[2020-06-27] MEDS ORDERED: NEOSTIGMINE METHYLSULFATE 0.5 MG/ML - 10 ML MDV ONE (08:09)
[2020-06-27] MEDS: INSULIN SLIDING SCALE (NOVOLOG) 1 VIAL SQ SCH ×4 (08:29→21:24)
[2020-06-27 08:30] LABS: CALCIUM 8.2 mg/dL (8.5-10.1)
[2020-06-27 08:31] LABS: BLOOD UREA NITROGEN 95.1 mg/dL (7-18); MAGNESIUM 2.1 mg/dL (1.8-2.4)
[2020-06-27 08:34] LABS: CREATININE 3.5 mg/dL (0.55-1.3); PHOSPHOROUS 4.1 mg/dL (2.5-4.9)
[2020-06-27 08:35] LABS: BILIRUBIN,TOTAL 0.7 mg/dL (0.2-1)
[2020-06-27 08:36] LABS: TOT PROT 5.8 g/dl (6.4-8.2)
[2020-06-27] MEDS ORDERED: EPHEDRINE SULFATE/0.9% NACL/PF 50 MG/10 ML SYRINGE NR ONE (08:50)
[2020-06-27 08:54] LABS: ALBUMIN 2.7 g/dl (3.4-5.0)
[2020-06-27] MEDS ORDERED: LIDOCAINE HCL 1%, 10 MG/ML (20ML VIAL) ONE (09:18)
[2020-06-27] MEDS ORDERED: ceFAZolin 2 GRAM PREMIX BAG IVPB ONE (10:00)
[2020-06-27] MEDS ORDERED: LIDOCAINE HCL 1% PRESERVATIVE FREE - 30ML VIAL IJ ONE (10:15)
[2020-06-27] MEDS ORDERED: BUPIVACAINE HCL/PF 0.5% (5 MG/ML) 30 ML VIAL IJ ONE (10:15)
[2020-06-27] MEDS ORDERED: DESFLURANE GAS 240 ML BOTTLE IH ONE (11:25)
[2020-06-27] MEDS ORDERED: ONDANSETRON 4 MG/2 ML VIAL IVPB PRN ×2 (12:54→14:39)
[2020-06-27] MEDS ORDERED: ACETAMINOPHEN 1000 MG/100 ML VIAL (NON FORMULARY) IVPB PRN (14:01)
[2020-06-27] MEDS ORDERED: METOPROLOL TARTRATE 5 MG/5 ML VIAL IVPUSH PRN (14:02)
[2020-06-27] MEDS ORDERED: SODIUM CHLORIDE 1,000 ML IV SCH ×2 (14:39→14:57)
[2020-06-27] MEDS ORDERED: MORPHINE SULFATE 2 MG/ML VIAL IVPUSH PRN (14:39)
[2020-06-27] MEDS ORDERED: LACTATED RINGERS SOLUTION 1000 ML INFUS.BAG IV SCH (15:00)
[2020-06-27] MEDS ORDERED: DEXTROSE 5%-0.45% SALINE 1,000 ML IV SCH (18:30)
[2020-06-28] MEDS ORDERED: LACTATED RINGERS SOLUTION 1000 ML INFUS.BAG IV ONE (00:31)
[2020-06-28 01:39] LABS: EPI CELLS 15 /uL (0-25.1); HYALINE CASTS 8 /uL (0-3.1); URINE APPEARANCE CLOUDY; URINE BACTERIA 13 /uL (0-1359); URINE BILIRUBIN NEGATIVE (NEGATIVE); URINE COLOR YELLOW; URINE GLUCOSE (UA) NEGATIVE (NEGATIVE); URINE KETONE TRACE (NEGATIVE); URINE LEUK ESTERASE NEGATIVE (NEGATIVE); URINE NITRITE NEGATIVE (NEGATIVE); URINE PROTEIN TRACE (NEGATIVE); URINE UROBILINOGEN 0.2 mg/dL (0.2-1.0); URINE WBC 26 /uL (0-25.8)
[2020-06-28] MEDS ORDERED: DEXTROSE 5%-0.45% SALINE 1,000 ML IV SCH (03:15)
[2020-06-28 04:10] LABS: URINE RBC 46.7 /uL (0-23.9); YEAST NONE SEEN (NEGATIVE)
[2020-06-28] MEDS: INSULIN SLIDING SCALE (NOVOLOG) 1 VIAL SQ SCH ×4 (07:04→21:48)
[2020-06-28 07:32] LABS: BASO % 0.1 % (0-2.0); EOS % 0.1 % (0-4.5); HEMATOCRIT 32.5 % (35.4-49); LYMPH % 5.3 % (8-40); MCHC 33.7 g/dl (32.0-35.9); MEAN CELL VOLUME 82.9 fl (80-96); MEAN PLT VOLUME 9.9 fl (7.5-11.1); NEUT % 84.5 % (42.8-82.8); PLATELET COUNT 126 K/MM3 (134-434); RBC 3.92 M/mm3 (4.00-5.60); RDW 14.1 % (11.9-15.9); WHITE BLOOD COUNT 4.9 K/mm3 (4.0-10.0)
[2020-06-28 07:43] LABS: CALCIUM 7.1 mg/dL (8.5-10.1)
[2020-06-28 07:44] LABS: BLOOD UREA NITROGEN 82.2 mg/dL (7-18)
[2020-06-28 07:47] LABS: CREATININE 2.2 mg/dL (0.55-1.3)
[2020-06-28] MEDS: KCL 10 MEQ IVPB 10 MEQ/100 ML INFUS.BAG IVPB SCH ×3 (09:15→12:28)
[2020-06-28 09:16] LABS: MAGNESIUM 1.7 mg/dL (1.8-2.4)
[2020-06-28] MEDS: HEPARIN NA (PORCINE) 5,000 UNITS/ML 1ML VIAL SQ SCH ×2 (09:16→21:46)
[2020-06-28 09:19] LABS: PHOSPHOROUS 3.9 mg/dL (2.5-4.9)
[2020-06-28] MEDS ORDERED: MAGNESIUM SULF 50% (8.12 MEQ/2 ML-1 GM VIAL) IVPB ONE (15:15)
[2020-06-28] MEDS ORDERED: POTASSIUM CHLORIDE 10 MEQ in DEXTROSE 5%-0.45% SALINE 995 ML IV SCH (15:16)
[2020-06-28] MEDS: D5-1/2NS+10 MEQ KCL - 10 MEQ/1,000 ML INFUS.BAG IV SCH (16:46)
[2020-06-29] MEDS: INSULIN SLIDING SCALE (NOVOLOG) 1 VIAL SQ SCH ×4 (06:49→21:41)
[2020-06-29 07:48] LABS: BASO % 0.3 % (0-2.0); EOS % 2.7 % (0-4.5); HEMATOCRIT 36.7 % (35.4-49); HEMOGLOBIN 12.3 GM/dL (11.7-16.9); MCH 28.2 pg (25.7-33.7); MCHC 33.7 g/dl (32.0-35.9); MEAN CELL VOLUME 83.8 fl (80-96); MEAN PLT VOLUME 10.2 fl (7.5-11.1); MONO % 11.5 % (3.8-10.2); NEUT % 80.5 % (42.8-82.8); PLATELET COUNT 146 K/MM3 (134-434); RBC 4.37 M/mm3 (4.00-5.60); RDW 14.5 % (11.9-15.9); WHITE BLOOD COUNT 6.1 K/mm3 (4.0-10.0)
[2020-06-29 08:07] LABS: ALBUMIN 2.2 g/dl (3.4-5.0); BLOOD UREA NITROGEN 57.9 mg/dL (7-18); MAGNESIUM 2.4 mg/dL (1.8-2.4)
[2020-06-29 08:10] LABS: CREATININE 1.3 mg/dL (0.55-1.3); PHOSPHOROUS 2.5 mg/dL (2.5-4.9)
[2020-06-29 08:11] LABS: BILIRUBIN,TOTAL 0.5 mg/dL (0.2-1)
[2020-06-29 08:12] LABS: TOT PROT 5.2 g/dl (6.4-8.2)
[2020-06-29 08:13] LABS: CALCIUM 8.2 mg/dL (8.5-10.1)
[2020-06-29] MEDS ORDERED: POTASSIUM PHOSPHATE 30 MM in SODIUM CHLORIDE 500 ML IVPB ONE (09:00)
[2020-06-29] MEDS: HEPARIN NA (PORCINE) 5,000 UNITS/ML 1ML VIAL SQ SCH ×2 (09:56→21:32)
[2020-06-29] MEDS: KCL 10 MEQ IVPB 10 MEQ/100 ML INFUS.BAG IVPB SCH ×5 (11:29→22:07)
[2020-06-29] MEDS: D5-1/2NS+10 MEQ KCL - 10 MEQ/1,000 ML INFUS.BAG IV SCH ×2 (15:58→22:01)
[2020-06-29] MEDS ORDERED: CEFTRIAXONE IVPB SCH (16:43)
[2020-06-29] MEDS ORDERED: WATER IVPB SCH (16:43)
[2020-06-29] MEDS ORDERED: DEXTROSE 5% IVPB SCH (16:43)
[2020-06-29] MEDS ORDERED: CEFTRIAXONE 2 GM in DEXTROSE 5%-WATER 100 ML IVPB SCH (16:50)
[2020-06-29] MEDS ORDERED: ONDANSETRON 4 MG/2 ML VIAL IVPB PRN (19:34)
[2020-06-29] MEDS ORDERED: MORPHINE SULFATE 2 MG/ML VIAL IVPUSH PRN (19:34)
[2020-06-29] MEDS ORDERED: METOPROLOL TARTRATE 5 MG/5 ML VIAL IVPUSH PRN (19:34)
[2020-06-30] MEDS: D5-1/2NS+10 MEQ KCL - 10 MEQ/1,000 ML INFUS.BAG IV SCH ×3 (02:52→22:11)
[2020-06-30] MEDS: INSULIN SLIDING SCALE (NOVOLOG) 1 VIAL SQ SCH ×4 (06:26→22:11)
[2020-06-30 08:40] LABS: HEMATOCRIT 32.8 % (35.4-49); MCH 28.3 pg (25.7-33.7); MCHC 33.6 g/dl (32.0-35.9); MEAN CELL VOLUME 84.2 fl (80-96); MEAN PLT VOLUME 9.2 fl (7.5-11.1); PLATELET COUNT 169 K/MM3 (134-434); RDW 14.3 % (11.9-15.9); WHITE BLOOD COUNT 5.6 K/mm3 (4.0-10.0)
[2020-06-30 08:54] LABS: CALCIUM 7.7 mg/dL (8.5-10.1)
[2020-06-30 08:55] LABS: MAGNESIUM 1.9 mg/dL (1.8-2.4)
[2020-06-30 08:58] LABS: BLOOD UREA NITROGEN 31.8 mg/dL (7-18); CREATININE 0.8 mg/dL (0.55-1.3); PHOSPHOROUS 2.5 mg/dL (2.5-4.9)
[2020-06-30] MEDS ORDERED: PT OWN MED DRAWER 7, Y5N ONE (10:23)
[2020-06-30] MEDS ORDERED: DEXTROSE 5%-WATER 100 ML IVPB ONE (10:24)
[2020-06-30] MEDS: CEFTRIAXONE 2 GM in DEXTROSE 5%-WATER 100 ML IVPB SCH (10:27)
[2020-06-30] MEDS: HEPARIN NA (PORCINE) 5,000 UNITS/ML 1ML VIAL SQ SCH ×2 (10:28→22:08)
[2020-06-30] MEDS: VANCOMYCIN 1 GRAM (PRE-DOCKED) 1,000 MG/250 ML BAG IVPB SCH (17:06)
[2020-06-30 21:24] VITALS: BMI 33.4
[2020-07-01] MEDS: D5-1/2NS+10 MEQ KCL - 10 MEQ/1,000 ML INFUS.BAG IV SCH (01:23)
[2020-07-01] MEDS: VANCOMYCIN 1 GRAM (PRE-DOCKED) 1,000 MG/250 ML BAG IVPB SCH ×2 (02:51→15:09)
[2020-07-01] MEDS: INSULIN SLIDING SCALE (NOVOLOG) 1 VIAL SQ SCH ×4 (06:14→22:08)
[2020-07-01 08:46] LABS: BASO % 0.2 % (0-2.0); HEMATOCRIT 33.7 % (35.4-49); HEMOGLOBIN 11.3 GM/dL (11.7-16.9); LYMPH % 7.9 % (8-40); MCHC 33.5 g/dl (32.0-35.9); MEAN CELL VOLUME 83.4 fl (80-96); MEAN PLT VOLUME 9.3 fl (7.5-11.1); NEUT % 73.9 % (42.8-82.8); PLATELET COUNT 189 K/MM3 (134-434); RBC 4.04 M/mm3 (4.00-5.60); RDW 14.1 % (11.9-15.9)
[2020-07-01 09:05] LABS: CALCIUM 7.7 mg/dL (8.5-10.1)
[2020-07-01 09:06] LABS: BLOOD UREA NITROGEN 20.5 mg/dL (7-18)
[2020-07-01 09:09] LABS: CREATININE 0.7 mg/dL (0.55-1.3)
[2020-07-01 09:10] LABS: BILIRUBIN,TOTAL 0.4 mg/dL (0.2-1); TOT PROT 4.5 g/dl (6.4-8.2)
[2020-07-01] MEDS ORDERED: DEXTROSE 5%-WATER 100 ML IVPB ONE (09:20)
[2020-07-01] MEDS: CEFTRIAXONE 2 GM in DEXTROSE 5%-WATER 100 ML IVPB SCH (09:48)
[2020-07-01] MEDS: HEPARIN NA (PORCINE) 5,000 UNITS/ML 1ML VIAL SQ SCH ×2 (09:48→21:57)
[2020-07-01] MEDS: POTASSIUM CHLORIDE TABS 20 MEQ TABLET.ER (FP) PO SCH ×2 (12:35→21:57)
[2020-07-02] MEDS: VANCOMYCIN 1 GRAM (PRE-DOCKED) 1,000 MG/250 ML BAG IVPB SCH ×2 (03:11→15:43)
[2020-07-02] MEDS: INSULIN SLIDING SCALE (NOVOLOG) 1 VIAL SQ SCH ×4 (06:26→22:00)
[2020-07-02] MEDS ORDERED: ACETAMINOPHEN 325 MG TABLET (FP) PO PRN (08:37)
[2020-07-02] MEDS ORDERED: DEXTROSE 5%-WATER 100 ML IVPB ONE (08:52)
[2020-07-02] MEDS: CEFTRIAXONE 2 GM in DEXTROSE 5%-WATER 100 ML IVPB SCH (09:39)
[2020-07-02] MEDS: HEPARIN NA (PORCINE) 5,000 UNITS/ML 1ML VIAL SQ SCH ×2 (09:39→21:42)
[2020-07-02 09:40] LABS: BASO % 0.5 % (0-2.0); EOS % 3.9 % (0-4.5); HEMATOCRIT 34.9 % (35.4-49); HEMOGLOBIN 11.7 GM/dL (11.7-16.9); MCH 28.1 pg (25.7-33.7); MCHC 33.5 g/dl (32.0-35.9); MEAN CELL VOLUME 83.8 fl (80-96); MONO % 9.3 % (3.8-10.2); NEUT % 77.3 % (42.8-82.8); PLATELET COUNT 204 K/MM3 (134-434); RBC 4.17 M/mm3 (4.00-5.60); RDW 14.2 % (11.9-15.9); WHITE BLOOD COUNT 7.2 K/mm3 (4.0-10.0)
[2020-07-02 10:11] LABS: SARS-CoV-2 NAA Detected (Not Detected)
[2020-07-02 10:18] LABS: CALCIUM 8.1 mg/dL (8.5-10.1)
[2020-07-02 10:20] LABS: BLOOD UREA NITROGEN 12.6 mg/dL (7-18)
[2020-07-02 10:21] LABS: ALBUMIN 2.1 g/dl (3.4-5.0)
[2020-07-02 10:23] LABS: CREATININE 0.7 mg/dL (0.55-1.3)
[2020-07-02 10:24] LABS: BILIRUBIN,TOTAL 0.4 mg/dL (0.2-1); TOT PROT 4.8 g/dl (6.4-8.2)
[2020-07-03] MEDS: INSULIN SLIDING SCALE (NOVOLOG) 1 VIAL SQ SCH ×4 (06:21→22:12)
[2020-07-03] MEDS ORDERED: DEXTROSE 5%-WATER 100 ML IVPB ONE (09:18)
[2020-07-03] MEDS ORDERED: VANCOMYCIN 1 GRAM (PRE-DOCKED) 1,000 MG/250 ML BAG IVPB SCH (10:00)
[2020-07-03] MEDS: HEPARIN NA (PORCINE) 5,000 UNITS/ML 1ML VIAL SQ SCH ×2 (10:49→22:12)
[2020-07-03] MEDS: CEFTRIAXONE 2 GM in DEXTROSE 5%-WATER 100 ML IVPB SCH (10:50)
[2020-07-04] MEDS: INSULIN SLIDING SCALE (NOVOLOG) 1 VIAL SQ SCH ×4 (06:08→21:11)
[2020-07-04] MEDS ORDERED: DEXTROSE 5%-WATER 100 ML IVPB ONE (10:21)
[2020-07-04] MEDS: CEFTRIAXONE 2 GM in DEXTROSE 5%-WATER 100 ML IVPB SCH (10:56)
[2020-07-04] MEDS: HEPARIN NA (PORCINE) 5,000 UNITS/ML 1ML VIAL SQ SCH ×2 (10:56→21:11)
[2020-07-04 11:51] LABS: HEMATOCRIT 36.2 % (35.4-49); HEMOGLOBIN 12.2 GM/dL (11.7-16.9); MCH 28.2 pg (25.7-33.7); MCHC 33.6 g/dl (32.0-35.9); PLATELET COUNT 255 K/MM3 (134-434); RBC 4.31 M/mm3 (4.00-5.60); WHITE BLOOD COUNT 10.3 K/mm3 (4.0-10.0)
[2020-07-04 11:54] LABS: ALBUMIN 2.4 g/dl (3.4-5.0); CALCIUM 8.2 mg/dL (8.5-10.1)
[2020-07-04 11:55] LABS: MAGNESIUM 1.4 mg/dL (1.8-2.4)
[2020-07-04 11:56] LABS: BLOOD UREA NITROGEN 8.2 mg/dL (7-18)
[2020-07-04 11:57] LABS: PHOSPHOROUS 2.6 mg/dL (2.5-4.9)
[2020-07-04 11:58] LABS: CREATININE 0.8 mg/dL (0.55-1.3)
[2020-07-04 11:59] LABS: BILIRUBIN,TOTAL 0.5 mg/dL (0.2-1); TOT PROT 5.4 g/dl (6.4-8.2)
[2020-07-04] MEDS ORDERED: MAGNESIUM SULF 50% (8.12 MEQ/2 ML-1 GM VIAL) IVPB ONE (15:41)
[2020-07-04] MEDS ORDERED: AMPICILLIN NA/SULBACTAM NA 1.5 GM VIAL ONE (17:16)
[2020-07-04] MEDS ORDERED: SODIUM CHLORIDE 100 ML IVPB ONE (17:16)
[2020-07-04] MEDS: AMPICILLIN NA/SULBACTAM NA 1.5 GM in SODIUM CHLORIDE 100 ML IVPB SCH (17:31)
[2020-07-05] MEDS ORDERED: AMPICILLIN NA/SULBACTAM NA 1.5 GM VIAL ONE ×2 (01:17→10:15)
[2020-07-05] MEDS ORDERED: SODIUM CHLORIDE 100 ML IVPB ONE ×2 (01:17→10:15)
[2020-07-05] MEDS: AMPICILLIN NA/SULBACTAM NA 1.5 GM in SODIUM CHLORIDE 100 ML IVPB SCH ×2 (01:25→10:20)
[2020-07-05] MEDS: INSULIN SLIDING SCALE (NOVOLOG) 1 VIAL SQ SCH ×2 (06:11→11:40)
[2020-07-05 08:56] LABS: BASO % 0.7 % (0-2.0); EOS % 2.5 % (0-4.5); HEMATOCRIT 32.1 % (35.4-49); HEMOGLOBIN 10.9 GM/dL (11.7-16.9); LYMPH % 7.9 % (8-40); MCH 28.3 pg (25.7-33.7); MEAN CELL VOLUME 83.4 fl (80-96); MEAN PLT VOLUME 8.4 fl (7.5-11.1); MONO % 7.2 % (3.8-10.2); NEUT % 81.7 % (42.8-82.8); PLATELET COUNT 226 K/MM3 (134-434); RBC 3.85 M/mm3 (4.00-5.60); RDW 13.9 % (11.9-15.9); WHITE BLOOD COUNT 8.8 K/mm3 (4.0-10.0)
[2020-07-05 09:18] LABS: ALBUMIN 2.2 g/dl (3.4-5.0); BLOOD UREA NITROGEN 7.1 mg/dL (7-18); CREATININE 0.7 mg/dL (0.55-1.3)
[2020-07-05 09:20] LABS: BILIRUBIN,TOTAL 0.4 mg/dL (0.2-1); CALCIUM 8.1 mg/dL (8.5-10.1)
[2020-07-05 09:21] LABS: MAGNESIUM 1.8 mg/dL (1.8-2.4)
[2020-07-05] MEDS ORDERED: MULTIVITAMINS (DAILY MVI) TABLET (FP) PO SCH (10:00)
[2020-07-05] MEDS ORDERED: MAGNESIUM OXIDE 400 MG TABLET (FP) PO SCH (10:00)
[2020-07-05] MEDS ORDERED: PT OWN MED DRAWER 7, Y5N ONE (10:15)
[2020-07-05] MEDS: HEPARIN NA (PORCINE) 5,000 UNITS/ML 1ML VIAL SQ SCH (10:21)
[2020-07-05 15:34] VITALS: BP 138/88; PULSE 89; TEMP 98.3
== END 2020-07-05 17:25 | disposition home or self-care (01) | DRG 341 ==
LOC: JER 10:07 → UNDOADMIN 11:41 → JERBED 11:41 → J4W 06-27 17:31 → J8W 06-29 18:42
PROVIDERS: ADMIT Family Medicine; ATTEND Student in an Organized Health Care Education/Training Program
PROC: 0YQ50ZZ Repair Right Inguinal Region, Open Approach (ICD-10-PCS; 2020-06-27)
PROC: 0DTJ0ZZ Resection of Appendix, Open Approach (ICD-10-PCS; principal; 2020-06-27 08:00)
DX: K40.30 Unilateral inguinal hernia, with obstruction, without gangrene, not specified as recurrent (principal); U07.1 COVID-19; K35.30 Acute appendicitis with localized peritonitis, without perforation or gangrene; I24.8 Other forms of acute ischemic heart disease; I45.2 Bifascicular block; N17.9 Acute kidney failure, unspecified; J98.11 Atelectasis; J44.9 Chronic obstructive pulmonary disease, unspecified; E87.6 Hypokalemia; E78.5 Hyperlipidemia, unspecified; I10 Essential (primary) hypertension; E83.42 Hypomagnesemia
CPT/HCPCS: 36415; 71045-TC-FY; 74176-TC; 80048; 80053; 81003; 82550; 82728; 82962; 83605; 83615; 83735; 83880; 84100; 84443; 84484; 85025; 85027; 85379; 85610; 85730; 86140; 86850; 86900; 86901; 87070; 87075; 87086; 87186; 87205; 87804; 87899; 93005; 93010; 94010; 94760; 97116-GP; 97161-GP; 99285-25; C9803; G0480; J1100; J1644; U0003; U0005

== ENCOUNTER 2020-12-02 10:48 | Inpatient (IN) | payer OTHER, MEDICARE ==
[2020-12-02 11:10] VITALS: BMI 32.5
[2020-12-02] MEDS ORDERED: SODIUM CHLORIDE 2,994 ML IV ONE (11:44)
[2020-12-02] MEDS ORDERED: VANCOMYCIN HCL 1,500 MG in DEXTROSE 5%-WATER - 500 ML IVPB ONE ×2 (11:47→13:07)
[2020-12-02] MEDS ORDERED: CLINDAMYCIN 600MG PREMIX IVPB 600 MG/50 ML BAG IVPB ONE ×2 (11:49→13:16)
[2020-12-02] MEDS ORDERED: DALBAVANCIN HCL 1,500 MG in DEXTROSE 5%-WATER - 500 ML IVPB ONE (12:02)
[2020-12-02 13:16] LABS: VENOUS BASE EXCESS -0.8 mmol/L (-2-2); VENOUS O2 SATURATION 16.2 % (70-80); VENOUS PH 7.285 (7.310-7.410)
[2020-12-02] MEDS ORDERED: SODIUM CHLORIDE 0.9% 500 ML INFUS.BAG IV ONE (13:17)
[2020-12-02 13:19] LABS: BASO % 0.5 % (0-2.0); EOS % 5.1 % (0-4.5); HEMATOCRIT 36.8 % (35.4-49); HEMOGLOBIN 12.6 GM/dL (11.7-16.9); LYMPH % 8.6 % (8-40); MCH 28.1 pg (25.7-33.7); MCHC 34.2 g/dl (32.0-35.9); MEAN CELL VOLUME 82.2 fl (80-96); MEAN PLT VOLUME 7.7 fl (7.5-11.1); MONO % 10.2 % (3.8-10.2); NEUT % 75.6 % (42.8-82.8); PLATELET COUNT 191 10^3/uL (134-434); RBC 4.47 M/mm3 (4.00-5.60); RDW 15.5 % (11.9-15.9); WHITE BLOOD COUNT 6.4 K/mm3 (4.0-10.0)
[2020-12-02 13:23] LABS: INR 1.07 (0.83-1.09); PROTHROMBIN TIME (PATIENT) 13.1 SEC (9.7-13.0)
[2020-12-02] MEDS ORDERED: VANCOMYCIN 500 MG VIAL (RESTRICTED TO ID ONLY) ONE (13:25)
[2020-12-02 13:26] LABS: ACTIVATED PTT 35.1 SECONDS (25.2-36.5)
[2020-12-02 13:49] LABS: ALBUMIN 3.8 g/dl (3.4-5.0); BLOOD UREA NITROGEN 35.2 mg/dL (7-18); CALCIUM 9.1 mg/dL (8.5-10.1)
[2020-12-02 13:52] LABS: CREATININE 0.9 mg/dL (0.55-1.3)
[2020-12-02 13:54] LABS: BILIRUBIN,TOTAL 1.1 mg/dL (0.2-1); TOT PROT 7.5 g/dl (6.4-8.2)
[2020-12-02] MEDS ORDERED: ACETAMINOPHEN 325 MG TABLET (FP) PO PRN (21:30)
[2020-12-02] MEDS ORDERED: SENNOSIDES 8.6MG TABLET (FP) PO PRN (21:33)
[2020-12-02] MEDS: ATORVASTATIN CA 40 MG TABLET (FP) PO SCH (22:22)
[2020-12-02] MEDS: HEPARIN NA (PORCINE) 5,000 UNITS/ML 1ML VIAL SQ SCH (22:23)
[2020-12-02] MEDS: CLINDAMYCIN 600MG PREMIX IVPB 600 MG/50 ML BAG IVPB SCH (22:23)
[2020-12-02] MEDS: DOCUSATE SODIUM 100 MG CAPSULE (FP) PO SCH (22:23)
[2020-12-03] MEDS: CLINDAMYCIN 600MG PREMIX IVPB 600 MG/50 ML BAG IVPB SCH ×2 (01:34→10:46)
[2020-12-03] MEDS: DOCUSATE SODIUM 100 MG CAPSULE (FP) PO SCH ×3 (06:02→21:23)
[2020-12-03] MEDS: SERTRALINE HCL 50 MG TABLET (FP) PO SCH (10:46)
[2020-12-03] MEDS: HEPARIN NA (PORCINE) 5,000 UNITS/ML 1ML VIAL SQ SCH ×2 (10:46→21:23)
[2020-12-03] MEDS: ASPIRIN 81 MG CHEWABLE TABLETS PO SCH (10:46)
[2020-12-03] MEDS: ATENOLOL 25 MG TABLET (FP) PO SCH (10:59)
[2020-12-03] MEDS: CEFAZOLIN 1 GM/D5W 1 GM/50 ML BAG IVPB SCH (18:05)
[2020-12-03] MEDS: ATORVASTATIN CA 40 MG TABLET (FP) PO SCH (21:23)
[2020-12-04] MEDS: CEFAZOLIN 1 GM/D5W 1 GM/50 ML BAG IVPB SCH ×3 (01:39→17:08)
[2020-12-04] MEDS: DOCUSATE SODIUM 100 MG CAPSULE (FP) PO SCH ×3 (05:07→21:07)
[2020-12-04] MEDS: ATENOLOL 25 MG TABLET (FP) PO SCH (09:56)
[2020-12-04] MEDS: HEPARIN NA (PORCINE) 5,000 UNITS/ML 1ML VIAL SQ SCH ×2 (09:56→21:07)
[2020-12-04] MEDS: ASPIRIN 81 MG CHEWABLE TABLETS PO SCH (09:56)
[2020-12-04] MEDS: SERTRALINE HCL 50 MG TABLET (FP) PO SCH (09:56)
[2020-12-04] MEDS: ATORVASTATIN CA 40 MG TABLET (FP) PO SCH (21:07)
[2020-12-05] MEDS: CEFAZOLIN 1 GM/D5W 1 GM/50 ML BAG IVPB SCH ×3 (02:21→18:26)
[2020-12-05] MEDS: DOCUSATE SODIUM 100 MG CAPSULE (FP) PO SCH ×3 (05:34→21:49)
[2020-12-05 08:58] LABS: BASO % 0.5 % (0-2.0); EOS % 4.6 % (0-4.5); HEMATOCRIT 37.3 % (35.4-49); HEMOGLOBIN 12.5 GM/dL (11.7-16.9); LYMPH % 9.1 % (8-40); MCHC 33.6 g/dl (32.0-35.9); MEAN CELL VOLUME 83.4 fl (80-96); MEAN PLT VOLUME 7.9 fl (7.5-11.1); MONO % 8.8 % (3.8-10.2); PLATELET COUNT 187 10^3/uL (134-434); RBC 4.47 M/mm3 (4.00-5.60); RDW 15.5 % (11.9-15.9); WHITE BLOOD COUNT 6.8 K/mm3 (4.0-10.0)
[2020-12-05 09:35] LABS: ALBUMIN 3.1 g/dl (3.4-5.0); BLOOD UREA NITROGEN 32.5 mg/dL (7-18); CALCIUM 8.9 mg/dL (8.5-10.1)
[2020-12-05 09:40] LABS: BILIRUBIN,TOTAL 0.5 mg/dL (0.2-1); TOT PROT 6.6 g/dl (6.4-8.2)
[2020-12-05] MEDS: ASPIRIN 81 MG CHEWABLE TABLETS PO SCH (10:46)
[2020-12-05] MEDS: HEPARIN NA (PORCINE) 5,000 UNITS/ML 1ML VIAL SQ SCH ×2 (10:47→21:49)
[2020-12-05] MEDS: SERTRALINE HCL 50 MG TABLET (FP) PO SCH (10:47)
[2020-12-05] MEDS: ATENOLOL 25 MG TABLET (FP) PO SCH (10:47)
[2020-12-05] MEDS: ATORVASTATIN CA 40 MG TABLET (FP) PO SCH (21:49)
[2020-12-06] MEDS: CEFAZOLIN 1 GM/D5W 1 GM/50 ML BAG IVPB SCH ×2 (01:30→09:41)
[2020-12-06 06:23] VITALS: TEMP 98.3
[2020-12-06] MEDS: DOCUSATE SODIUM 100 MG CAPSULE (FP) PO SCH (06:44)
[2020-12-06] MEDS: SERTRALINE HCL 50 MG TABLET (FP) PO SCH (09:41)
[2020-12-06] MEDS: ATENOLOL 25 MG TABLET (FP) PO SCH (09:41)
[2020-12-06] MEDS: ASPIRIN 81 MG CHEWABLE TABLETS PO SCH (09:41)
[2020-12-06 09:49] VITALS: BP 107/73
[2020-12-06] MEDS: HEPARIN NA (PORCINE) 5,000 UNITS/ML 1ML VIAL SQ SCH (10:47)
[2020-12-06 11:47] VITALS: PULSE 66
== END 2020-12-06 13:06 | disposition home health service (06) | DRG 603 ==
LOC: JER 10:48 → JERBED 13:22 → J6S 20:01
PROVIDERS: ADMIT Family Medicine; ATTEND Family Medicine
DX: L03.116 Cellulitis of left lower limb (principal); L97.909 Non-pressure chronic ulcer of unspecified part of unspecified lower leg with unspecified severity; J44.9 Chronic obstructive pulmonary disease, unspecified; I10 Essential (primary) hypertension; E78.5 Hyperlipidemia, unspecified; S81.812A Laceration without foreign body, left lower leg, initial encounter; I45.10 Unspecified right bundle-branch block; E66.9 Obesity, unspecified; Z68.32 Body mass index [BMI] 32.0-32.9, adult; T14.90XA Injury, unspecified, initial encounter; X58.XXXA Exposure to other specified factors, initial encounter; Y93.9 Activity, unspecified; Y92.89 Other specified places as the place of occurrence of the external cause; Y99.9 Unspecified external cause status
CPT/HCPCS: 36415; 73562-TC-LT-FY; 73590-TC-LT-FY; 80053; 82550; 82803; 83036; 83605; 85025; 85610; 85730; 86850; 86900; 86901; 87040; 93005; 93010; 93970-TC; 99285-25; C9803; G0463-25; J1644; U0003; U0005

== ENCOUNTER 2021-06-05 10:51 | Inpatient (IN) | payer OTHER, MEDICARE ==
[2021-06-05 11:51] VITALS: BMI 32.5
[2021-06-05] MEDS ORDERED: CLINDAMYCIN 600MG PREMIX IVPB 600 MG/50 ML BAG IVPB ONE ×2 (13:08→13:51)
[2021-06-05] MEDS ORDERED: VANCOMYCIN 1 GM in D5W (PRE-DOCKED) 1,000 MG/250 ML IVPB ONE (13:08)
[2021-06-05 13:22] LABS: BASO % 0.6 % (0-2.0); EOS % 3.6 % (0-4.5); HEMATOCRIT 33.6 % (35.4-49); HEMOGLOBIN 11.3 GM/dL (11.7-16.9); LYMPH % 7.4 % (8-40); MCH 28.2 pg (25.7-33.7); MCHC 33.5 g/dl (32.0-35.9); MEAN CELL VOLUME 84.3 fl (80-96); MEAN PLT VOLUME 7.9 fl (7.5-11.1); MONO % 9.3 % (3.8-10.2); NEUT % 79.1 % (42.8-82.8); PLATELET COUNT 267 10^3/uL (134-434); RBC 3.99 M/mm3 (4.00-5.60); WHITE BLOOD COUNT 7.7 K/mm3 (4.0-10.0)
[2021-06-05] MEDS ORDERED: SENNOSIDES 8.6MG TABLET (FP) PO PRN (13:46)
[2021-06-05] MEDS ORDERED: ACETAMINOPHEN 325 MG TABLET (FP) PO PRN (13:46)
[2021-06-05] MEDS ORDERED: VANCOMYCIN 1 GRAM (PRE-DOCKED) 1,000 MG/250 ML BAG IVPB ONE (13:50)
[2021-06-05 13:58] LABS: CALCIUM 9.2 mg/dL (8.5-10.1)
[2021-06-05 13:59] LABS: ALBUMIN 3.6 g/dl (3.4-5.0); BLOOD UREA NITROGEN 39.8 mg/dL (7-18)
[2021-06-05 14:00] LABS: MAGNESIUM 2.6 mg/dL (1.8-2.4)
[2021-06-05 14:02] LABS: CREATININE 0.9 mg/dL (0.55-1.3); PHOSPHOROUS 3.6 mg/dL (2.5-4.9)
[2021-06-05 14:04] LABS: BILIRUBIN,TOTAL 0.7 mg/dL (0.2-1); TOT PROT 6.8 g/dl (6.4-8.2)
[2021-06-05 16:46] LABS: EPI CELLS 5 /uL (0-25.1); HYALINE CASTS 1 /uL (0-3.1); URINE APPEARANCE CLEAR; URINE BACTERIA 1 /uL (0-1359); URINE BILIRUBIN NEGATIVE (NEGATIVE); URINE COLOR YELLOW; URINE GLUCOSE (UA) NEGATIVE (NEGATIVE); URINE KETONE TRACE (NEGATIVE); URINE LEUK ESTERASE NEGATIVE (NEGATIVE); URINE NITRITE NEGATIVE (NEGATIVE); URINE PROTEIN NEGATIVE (NEGATIVE); URINE RBC 435 /uL (0-23.9); URINE UROBILINOGEN 0.2 mg/dL (0.2-1.0); URINE WBC 5 /uL (0-25.8)
[2021-06-05] MEDS ORDERED: SODIUM CHLORIDE 0.45% 1,000 ML IV SCH (17:45)
[2021-06-05] MEDS ORDERED: ATORVASTATIN CA 40 MG TABLET (FP) ONE (22:29)
[2021-06-05] MEDS: ATORVASTATIN CA 40 MG TABLET (FP) PO SCH (22:34)
[2021-06-06 06:06] LABS: SARS-CoV-2 NAA Not Detected (Not Detected)
[2021-06-06] MEDS: VALSARTAN 80 MG TABLET PO SCH (10:17)
[2021-06-06] MEDS: ASPIRIN COATED 81 MG TABLET.EC PO SCH (10:18)
[2021-06-06] MEDS: SERTRALINE HCL 50 MG TABLET (FP) PO SCH (10:18)
[2021-06-06] MEDS: ATENOLOL 25 MG TABLET (FP) PO SCH (10:18)
[2021-06-06] MEDS: ATORVASTATIN CA 40 MG TABLET (FP) PO SCH (22:10)
[2021-06-07 08:33] LABS: BLOOD UREA NITROGEN 40.9 mg/dL (7-18)
[2021-06-07 08:37] LABS: CREATININE 1.1 mg/dL (0.55-1.3)
[2021-06-07 08:39] LABS: BILIRUBIN,TOTAL 0.8 mg/dL (0.2-1)
[2021-06-07 08:40] LABS: TOT PROT 5.4 g/dl (6.4-8.2)
[2021-06-07 08:55] LABS: ALBUMIN 2.6 g/dl (3.4-5.0)
[2021-06-07] MEDS: ATENOLOL 25 MG TABLET (FP) PO SCH (10:11)
[2021-06-07] MEDS: VALSARTAN 80 MG TABLET PO SCH (10:11)
[2021-06-07] MEDS: SERTRALINE HCL 50 MG TABLET (FP) PO SCH (10:14)
[2021-06-07] MEDS: ASPIRIN COATED 81 MG TABLET.EC PO SCH (10:14)
[2021-06-07] MEDS ORDERED: SODIUM CHLORIDE 0.45% 1,000 ML IV SCH (11:15)
[2021-06-07] MEDS: ATORVASTATIN CA 40 MG TABLET (FP) PO SCH (22:10)
[2021-06-08 07:20] LABS: ALBUMIN 2.7 g/dl (3.4-5.0); CALCIUM 8.1 mg/dL (8.5-10.1)
[2021-06-08 07:23] LABS: CREATININE 0.9 mg/dL (0.55-1.3)
[2021-06-08 07:25] LABS: BILIRUBIN,TOTAL 1.1 mg/dL (0.2-1); TOT PROT 5.4 g/dl (6.4-8.2)
[2021-06-08] MEDS: ATENOLOL 25 MG TABLET (FP) PO SCH (09:52)
[2021-06-08] MEDS: ASPIRIN COATED 81 MG TABLET.EC PO SCH (09:52)
[2021-06-08] MEDS: VALSARTAN 80 MG TABLET PO SCH (09:52)
[2021-06-08] MEDS: SERTRALINE HCL 50 MG TABLET (FP) PO SCH (09:52)
[2021-06-08] MEDS: SODIUM CHLORIDE 0.45% 1,000 ML IV SCH (14:14)
[2021-06-08] MEDS: ATORVASTATIN CA 40 MG TABLET (FP) PO SCH (21:20)
[2021-06-09] MEDS: SODIUM CHLORIDE 0.45% 1,000 ML IV SCH (05:56)
[2021-06-09 07:34] LABS: CALCIUM 8.2 mg/dL (8.5-10.1)
[2021-06-09 07:35] LABS: ALBUMIN 2.7 g/dl (3.4-5.0); BLOOD UREA NITROGEN 27.8 mg/dL (7-18)
[2021-06-09 07:38] LABS: CREATININE 0.8 mg/dL (0.55-1.3)
[2021-06-09 07:40] LABS: BILIRUBIN,TOTAL 0.5 mg/dL (0.2-1); TOT PROT 5.4 g/dl (6.4-8.2)
[2021-06-09] MEDS: VALSARTAN 80 MG TABLET PO SCH (09:39)
[2021-06-09] MEDS: ASPIRIN COATED 81 MG TABLET.EC PO SCH (09:39)
[2021-06-09] MEDS: ATENOLOL 25 MG TABLET (FP) PO SCH (09:39)
[2021-06-09] MEDS: SERTRALINE HCL 50 MG TABLET (FP) PO SCH (09:40)
[2021-06-09] MEDS: ATORVASTATIN CA 40 MG TABLET (FP) PO SCH (21:57)
[2021-06-10 06:08] LABS: SARS-CoV-2 NAA Not Detected (Not Detected)
[2021-06-10 07:45] LABS: BASO % 0.7 % (0-2.0); EOS % 6.6 % (0-4.5); HEMATOCRIT 28.1 % (35.4-49); HEMOGLOBIN 9.5 GM/dL (11.7-16.9); LYMPH % 13.9 % (8-40); MCHC 33.8 g/dl (32.0-35.9); MEAN CELL VOLUME 82.8 fl (80-96); MEAN PLT VOLUME 8.1 fl (7.5-11.1); NEUT % 70.8 % (42.8-82.8); PLATELET COUNT 215 10^3/uL (134-434); RBC 3.39 M/mm3 (4.00-5.60); RDW 14.3 % (11.9-15.9); WHITE BLOOD COUNT 5.3 K/mm3 (4.0-10.0)
[2021-06-10 07:53] LABS: BLOOD UREA NITROGEN 27.5 mg/dL (7-18); CALCIUM 8.5 mg/dL (8.5-10.1)
[2021-06-10 07:54] LABS: ALBUMIN 2.8 g/dl (3.4-5.0)
[2021-06-10 07:57] LABS: CREATININE 0.9 mg/dL (0.55-1.3)
[2021-06-10 07:58] LABS: BILIRUBIN,TOTAL 0.5 mg/dL (0.2-1); TOT PROT 5.5 g/dl (6.4-8.2)
[2021-06-10] MEDS: ATENOLOL 25 MG TABLET (FP) PO SCH (09:03)
[2021-06-10] MEDS: ASPIRIN COATED 81 MG TABLET.EC PO SCH (09:03)
[2021-06-10] MEDS: SERTRALINE HCL 50 MG TABLET (FP) PO SCH (09:03)
[2021-06-10] MEDS: VALSARTAN 80 MG TABLET PO SCH (09:03)
[2021-06-10] MEDS: VANCOMYCIN/WATER FOR INJ (PEG) 1,000 MG/200 ML BAG IVPB SCH ×2 (12:12→22:14)
[2021-06-10] MEDS: ATORVASTATIN CA 40 MG TABLET (FP) PO SCH (21:37)
[2021-06-11] MEDS: ASPIRIN COATED 81 MG TABLET.EC PO SCH (10:52)
[2021-06-11] MEDS: SERTRALINE HCL 50 MG TABLET (FP) PO SCH (10:53)
[2021-06-11] MEDS: ATENOLOL 25 MG TABLET (FP) PO SCH (10:53)
[2021-06-11] MEDS: VALSARTAN 80 MG TABLET PO SCH (10:53)
[2021-06-11] MEDS: VANCOMYCIN/WATER FOR INJ (PEG) 1,000 MG/200 ML BAG IVPB SCH ×2 (10:53→22:43)
[2021-06-11] MEDS: ATORVASTATIN CA 40 MG TABLET (FP) PO SCH (21:21)
[2021-06-12] MEDS: ASPIRIN COATED 81 MG TABLET.EC PO SCH (09:44)
[2021-06-12] MEDS: ATENOLOL 25 MG TABLET (FP) PO SCH (09:44)
[2021-06-12] MEDS: SERTRALINE HCL 50 MG TABLET (FP) PO SCH (09:44)
[2021-06-12] MEDS: VALSARTAN 80 MG TABLET PO SCH (09:44)
[2021-06-12] MEDS ORDERED: MULTIVITAMINS (DAILY MVI) TABLET (FP) PO SCH (10:00)
[2021-06-12] MEDS: VANCOMYCIN/WATER FOR INJ (PEG) 1,000 MG/200 ML BAG IVPB SCH (11:37)
[2021-06-12 15:34] VITALS: BP 109/65; PULSE 69; TEMP 98.2
== END 2021-06-12 17:15 | DRG 603 ==
LOC: JER 10:51 → JERBED 12:12 → J4W 06-06 07:56
PROVIDERS: ADMIT Family Medicine; ATTEND Family Medicine
DX: L03.115 Cellulitis of right lower limb (principal); I45.2 Bifascicular block; I47.1 Supraventricular tachycardia; R78.81 Bacteremia; N17.9 Acute kidney failure, unspecified; L97.818 Non-pressure chronic ulcer of other part of right lower leg with other specified severity; L97.828 Non-pressure chronic ulcer of other part of left lower leg with other specified severity; I83.018 Varicose veins of right lower extremity with ulcer other part of lower leg; I83.028 Varicose veins of left lower extremity with ulcer other part of lower leg; E86.0 Dehydration; L03.116 Cellulitis of left lower limb; I87.2 Venous insufficiency (chronic) (peripheral); J44.9 Chronic obstructive pulmonary disease, unspecified; E78.5 Hyperlipidemia, unspecified; I10 Essential (primary) hypertension; I87.8 Other specified disorders of veins; I95.9 Hypotension, unspecified; D64.9 Anemia, unspecified; R41.82 Altered mental status, unspecified; W18.30XA Fall on same level, unspecified, initial encounter; Y92.89 Other specified places as the place of occurrence of the external cause; Y99.8 Other external cause status; B95.62 Methicillin resistant Staphylococcus aureus infection as the cause of diseases classified elsewhere
CPT/HCPCS: 36415; 70450-TC; 71045-TC-FY; 72125-TC; 72170-TC-FY; 80053; 81003; 82272; 83735; 84100; 84484; 85025; 87040; 87086; 87186; 93005; 93010; 93306-TC; 97116-GP; 97162-GP; 99285-25; C9803-CS; U0003; U0005

== ENCOUNTER 2021-06-12 22:04 | Inpatient (IN) | payer OTHER, MEDICARE ==
[2021-06-12 22:58] LABS: BASO % 0.5 % (0-2.0); EOS % 5.6 % (0-4.5); HEMOGLOBIN 10.6 GM/dL (11.7-16.9); LYMPH % 12.4 % (8-40); MCH 27.9 pg (25.7-33.7); MCHC 33.2 g/dl (32.0-35.9); MEAN CELL VOLUME 83.8 fl (80-96); MEAN PLT VOLUME 7.9 fl (7.5-11.1); MONO % 8.4 % (3.8-10.2); NEUT % 73.1 % (42.8-82.8); PLATELET COUNT 235 10^3/uL (134-434); RBC 3.82 M/mm3 (4.00-5.60); RDW 14.8 % (11.9-15.9); WHITE BLOOD COUNT 7.5 K/mm3 (4.0-10.0)
[2021-06-12 23:16] LABS: BLOOD UREA NITROGEN 24.3 mg/dL (7-18); CALCIUM 8.6 mg/dL (8.5-10.1)
[2021-06-12] MEDS ORDERED: VANCOMYCIN 1 GM in D5W (PRE-DOCKED) 1,000 MG/250 ML IVPB ONE (23:17)
[2021-06-12 23:20] LABS: CREATININE 0.9 mg/dL (0.55-1.3)
[2021-06-12 23:21] LABS: BILIRUBIN,TOTAL 0.6 mg/dL (0.2-1); TOT PROT 6.3 g/dl (6.4-8.2)
[2021-06-12] MEDS ORDERED: VANCOMYCIN 1 GRAM (PRE-DOCKED) 1,000 MG/250 ML BAG IVPB ONE (23:43)
[2021-06-13] MEDS ORDERED: ACETAMINOPHEN 325 MG TABLET (FP) PO PRN (01:18)
[2021-06-13] MEDS ORDERED: SENNOSIDES 8.6MG TABLET (FP) PO PRN (01:18)
[2021-06-13] MEDS: DOCUSATE SODIUM 100 MG CAPSULE (FP) PO SCH ×3 (06:08→21:17)
[2021-06-13] MEDS ORDERED: VALSARTAN 80 MG TABLET ONE (09:47)
[2021-06-13] MEDS ORDERED: ASPIRIN 81 MG CHEWABLE TABLETS ONE (09:47)
[2021-06-13] MEDS ORDERED: ATENOLOL 25 MG TABLET (FP) ONE (09:48)
[2021-06-13] MEDS ORDERED: SERTRALINE HCL 50 MG TABLET (FP) ONE (09:48)
[2021-06-13] MEDS: ASPIRIN 81 MG CHEWABLE TABLETS PO SCH (09:54)
[2021-06-13] MEDS: SERTRALINE HCL 50 MG TABLET (FP) PO SCH (09:54)
[2021-06-13] MEDS: ATENOLOL 25 MG TABLET (FP) PO SCH (09:54)
[2021-06-13] MEDS: VALSARTAN 80 MG TABLET PO SCH (09:54)
[2021-06-13] MEDS: HYDROCHLOROTHIAZIDE 12.5 MG CAPSULE (FP) PO SCH (09:54)
[2021-06-13] MEDS ORDERED: VANCOMYCIN HCL 1,500 MG in DEXTROSE 5%-WATER - 250 ML IVPB SCH (12:00)
[2021-06-13] MEDS ORDERED: VANCOMYCIN PREMIX 1.5 GM 1,500 MG/300 ML BAG IVPB SCH ×2 (14:00→15:00)
[2021-06-13] MEDS ORDERED: DOCUSATE SODIUM 100 MG CAPSULE (FP) PO ONE (14:48)
[2021-06-13 17:53] VITALS: BMI 33.5
[2021-06-13] MEDS ORDERED: HALOPERIDOL LACTATE 5 MG/ML IM ONE (19:35)
[2021-06-13] MEDS ORDERED: ATORVASTATIN CA 40 MG TABLET (FP) PO SCH (22:00)
[2021-06-14] MEDS: VANCOMYCIN/WATER FOR INJ (PEG) 1,000 MG/200 ML BAG IVPB SCH ×2 (03:11→16:22)
[2021-06-14] MEDS: DOCUSATE SODIUM 100 MG CAPSULE (FP) PO SCH ×2 (06:25→13:50)
[2021-06-14 08:11] LABS: BASO % 0.7 % (0-2.0); EOS % 4.4 % (0-4.5); HEMATOCRIT 29.4 % (35.4-49); HEMOGLOBIN 9.9 GM/dL (11.7-16.9); MCH 28.2 pg (25.7-33.7); MCHC 33.7 g/dl (32.0-35.9); MEAN CELL VOLUME 83.7 fl (80-96); MEAN PLT VOLUME 8.2 fl (7.5-11.1); MONO % 8.6 % (3.8-10.2); NEUT % 74.3 % (42.8-82.8); PLATELET COUNT 216 10^3/uL (134-434); RBC 3.51 M/mm3 (4.00-5.60); RDW 14.5 % (11.9-15.9); WHITE BLOOD COUNT 6.1 K/mm3 (4.0-10.0)
[2021-06-14 08:34] LABS: CALCIUM 8.4 mg/dL (8.5-10.1); MAGNESIUM 1.9 mg/dL (1.8-2.4)
[2021-06-14 08:35] LABS: BLOOD UREA NITROGEN 23.4 mg/dL (7-18)
[2021-06-14 08:36] LABS: CREATININE 0.9 mg/dL (0.55-1.3)
[2021-06-14] MEDS: VALSARTAN 80 MG TABLET PO SCH (09:55)
[2021-06-14] MEDS: SERTRALINE HCL 50 MG TABLET (FP) PO SCH (09:56)
[2021-06-14] MEDS: HYDROCHLOROTHIAZIDE 12.5 MG CAPSULE (FP) PO SCH (09:56)
[2021-06-14] MEDS: ASPIRIN 81 MG CHEWABLE TABLETS PO SCH (09:56)
[2021-06-14] MEDS: ATENOLOL 25 MG TABLET (FP) PO SCH (09:56)
[2021-06-14 18:34] VITALS: BP 93/56; PULSE 54; TEMP 98.8
== END 2021-06-14 19:41 | DRG 603 ==
LOC: JER 22:04 → JERBED 23:39 → J5S 06-13 15:24
PROVIDERS: ADMIT Hospitalist; ATTEND Family Medicine
PROC: 02HV33Z Insertion of Infusion Device into Superior Vena Cava, Percutaneous Approach (ICD-10-PCS; principal; 2021-06-14)
PROC: B548ZZA Ultrasonography of Superior Vena Cava, Guidance (ICD-10-PCS; 2021-06-14)
DX: L03.116 Cellulitis of left lower limb (principal); R78.81 Bacteremia; J44.9 Chronic obstructive pulmonary disease, unspecified; I10 Essential (primary) hypertension; E78.5 Hyperlipidemia, unspecified; I87.2 Venous insufficiency (chronic) (peripheral); L03.115 Cellulitis of right lower limb; B95.62 Methicillin resistant Staphylococcus aureus infection as the cause of diseases classified elsewhere
CPT/HCPCS: 36415; 36569; 71045-TC-FY; 80048; 80053; 83735; 85025; 93005; 93010; 99285-25; C9803-CS; U0003; U0005

== ENCOUNTER 2022-07-19 06:45 | Observation (INO) | payer OTHER, MEDICARE ==
[2022-07-19 07:22] VITALS: BMI 38.4
[2022-07-19] MEDS ORDERED: SODIUM CHLORIDE 1,000 ML IV SCH (07:30)
[2022-07-19 08:29] LABS: VENOUS BASE EXCESS -0.2 mmol/L (-2-2); VENOUS O2 SATURATION 26.6 % (70-80); VENOUS PCO2 59.9 mmHg (38-52); VENOUS PH 7.283 (7.310-7.410)
[2022-07-19 08:41] LABS: BASO % 0.7 % (0-2.0); HEMATOCRIT 37.2 % (35.4-49); HEMOGLOBIN 12.7 GM/dL (11.7-16.9); LYMPH % 13.1 % (8-40); MCH 28.8 pg (25.7-33.7); MCHC 34.2 g/dl (32.0-35.9); MEAN CELL VOLUME 84.5 fl (80-96); MEAN PLT VOLUME 8.9 fl (7.5-11.1); MONO % 10.8 % (3.8-10.2); NEUT % 69.4 % (42.8-82.8); PLATELET COUNT 161 10^3/uL (134-434); RBC 4.41 M/mm3 (4.00-5.60); RDW 15.5 % (11.9-15.9); WHITE BLOOD COUNT 5.7 K/mm3 (4.0-10.0)
[2022-07-19 08:44] LABS: INR 1.1 (0.83-1.09); PROTHROMBIN TIME (PATIENT) 12.7 SEC (9.7-13.0)
[2022-07-19 08:46] LABS: PH,URINE 6.5 (5.0-8.0); URINE APPEARANCE CLEAR; URINE BILIRUBIN NEGATIVE (NEGATIVE); URINE COLOR YELLOW; URINE GLUCOSE (UA) NEGATIVE (NEGATIVE); URINE KETONE NEGATIVE (NEGATIVE); URINE LEUK ESTERASE NEGATIVE (NEGATIVE); URINE NITRITE NEGATIVE (NEGATIVE); URINE PROTEIN TRACE (NEGATIVE); URINE UROBILINOGEN 0.2 mg/dL (0.2-1.0)
[2022-07-19 08:47] LABS: ACTIVATED PTT 35.7 SECONDS (25.2-36.5)
[2022-07-19 08:58] LABS: POTASSIUM 4.1 mmol/L (3.5-5.1)
[2022-07-19 09:00] LABS: ALBUMIN 3.7 g/dl (3.4-5.0)
[2022-07-19 09:02] LABS: BLOOD UREA NITROGEN 37.3 mg/dL (7-18)
[2022-07-19 09:03] LABS: CREATININE 1.2 mg/dL (0.55-1.3)
[2022-07-19 09:06] LABS: BILIRUBIN,TOTAL 0.9 mg/dL (0.2-1)
[2022-07-19] MEDS ORDERED: SODIUM CHLORIDE 0.9% 500 ML INFUS.BAG IV ONE (09:43)
[2022-07-19] MEDS ORDERED: ACETAMINOPHEN 325 MG TABLET (FP) PO PRN (12:00)
[2022-07-19] MEDS ORDERED: SENNOSIDES 8.6MG TABLET (FP) PO PRN (12:00)
[2022-07-19] MEDS ORDERED: HEPARIN NA (PORCINE) 5,000 UNITS/ML 1ML VIAL ONE (13:55)
[2022-07-19] MEDS ORDERED: DOCUSATE SODIUM 100 MG CAPSULE (FP) PO ONE (13:55)
[2022-07-19] MEDS: HEPARIN NA (PORCINE) 5,000 UNITS/ML 1ML VIAL SQ SCH ×2 (13:59→21:05)
[2022-07-19] MEDS: DOCUSATE SODIUM 100 MG CAPSULE (FP) PO SCH ×2 (13:59→21:05)
[2022-07-19] MEDS ORDERED: DAPTOmycin 500 MG VIAL (RESTRICTED TO ID) IVPB SCH (19:00)
[2022-07-19] MEDS ORDERED: DAPTOMYCIN 750 MG in SODIUM CHLORIDE 100 ML IVPB ONE (19:30)
[2022-07-19] MEDS ORDERED: DAPTOMYCIN 500 MG in SODIUM CHLORIDE 100 ML IVPB ONE (19:30)
[2022-07-19] MEDS: ATORVASTATIN CA 40 MG TABLET (FP) PO SCH (21:05)
[2022-07-20] MEDS: DOCUSATE SODIUM 100 MG CAPSULE (FP) PO SCH ×3 (05:37→21:00)
[2022-07-20 06:25] LABS: BASO % 0.6 % (0-2.0); EOS % 4.1 % (0-4.5); HEMATOCRIT 34.6 % (35.4-49); HEMOGLOBIN 12.1 GM/dL (11.7-16.9); MCH 29.3 pg (25.7-33.7); MCHC 34.9 g/dl (32.0-35.9); MEAN CELL VOLUME 83.9 fl (80-96); MEAN PLT VOLUME 8.4 fl (7.5-11.1); MONO % 8.6 % (3.8-10.2); NEUT % 77.7 % (42.8-82.8); PLATELET COUNT 142 10^3/uL (134-434); RBC 4.12 M/mm3 (4.00-5.60); RDW 15.6 % (11.9-15.9)
[2022-07-20 06:42] LABS: POTASSIUM 4.2 mmol/L (3.5-5.1)
[2022-07-20 06:45] LABS: ALBUMIN 3.2 g/dl (3.4-5.0); CALCIUM 8.6 mg/dL (8.5-10.1)
[2022-07-20 06:50] LABS: BILIRUBIN,TOTAL 0.7 mg/dL (0.2-1)
[2022-07-20] MEDS: ASPIRIN 81 MG CHEWABLE TABLETS PO SCH (09:51)
[2022-07-20] MEDS: VALSARTAN 80 MG TABLET PO SCH (09:51)
[2022-07-20] MEDS: HEPARIN NA (PORCINE) 5,000 UNITS/ML 1ML VIAL SQ SCH ×2 (09:51→21:00)
[2022-07-20] MEDS: ATENOLOL 25 MG TABLET (FP) PO SCH (09:51)
[2022-07-20] MEDS: SERTRALINE HCL 50 MG TABLET (FP) PO SCH (09:51)
[2022-07-20] MEDS: TRIAMCINOLONE ACET 0.025% OINTMENT 15 GM TUBE TP SCH ×2 (14:42→21:03)
[2022-07-20] MEDS: ATORVASTATIN CA 40 MG TABLET (FP) PO SCH (21:01)
[2022-07-21] MEDS: DOCUSATE SODIUM 100 MG CAPSULE (FP) PO SCH ×3 (06:40→22:00)
[2022-07-21] MEDS: TRIAMCINOLONE ACET 0.025% OINTMENT 15 GM TUBE TP SCH ×2 (10:19→22:01)
[2022-07-21] MEDS: HEPARIN NA (PORCINE) 5,000 UNITS/ML 1ML VIAL SQ SCH ×2 (10:19→21:47)
[2022-07-21] MEDS: SERTRALINE HCL 50 MG TABLET (FP) PO SCH (10:20)
[2022-07-21] MEDS: ATENOLOL 25 MG TABLET (FP) PO SCH (10:20)
[2022-07-21] MEDS: VALSARTAN 80 MG TABLET PO SCH (10:20)
[2022-07-21] MEDS: ASPIRIN 81 MG CHEWABLE TABLETS PO SCH (10:20)
[2022-07-21] MEDS: ATORVASTATIN CA 40 MG TABLET (FP) PO SCH (21:47)
[2022-07-22] MEDS: DOCUSATE SODIUM 100 MG CAPSULE (FP) PO SCH ×3 (05:30→22:55)
[2022-07-22] MEDS: SERTRALINE HCL 50 MG TABLET (FP) PO SCH (10:09)
[2022-07-22] MEDS: HEPARIN NA (PORCINE) 5,000 UNITS/ML 1ML VIAL SQ SCH ×2 (10:09→22:56)
[2022-07-22] MEDS: VALSARTAN 80 MG TABLET PO SCH (10:09)
[2022-07-22] MEDS: ATENOLOL 25 MG TABLET (FP) PO SCH (10:09)
[2022-07-22] MEDS: TRIAMCINOLONE ACET 0.025% OINTMENT 15 GM TUBE TP SCH ×2 (10:10→22:57)
[2022-07-22] MEDS: ASPIRIN 81 MG CHEWABLE TABLETS PO SCH (10:10)
[2022-07-22] MEDS: ATORVASTATIN CA 40 MG TABLET (FP) PO SCH (22:55)
[2022-07-23] MEDS: DOCUSATE SODIUM 100 MG CAPSULE (FP) PO SCH ×2 (06:16→15:52)
[2022-07-23] MEDS: HEPARIN NA (PORCINE) 5,000 UNITS/ML 1ML VIAL SQ SCH (09:03)
[2022-07-23] MEDS: ASPIRIN 81 MG CHEWABLE TABLETS PO SCH (09:04)
[2022-07-23] MEDS: ATENOLOL 25 MG TABLET (FP) PO SCH (09:04)
[2022-07-23] MEDS: TRIAMCINOLONE ACET 0.025% OINTMENT 15 GM TUBE TP SCH (09:04)
[2022-07-23] MEDS: SERTRALINE HCL 50 MG TABLET (FP) PO SCH (09:04)
[2022-07-23] MEDS: VALSARTAN 80 MG TABLET PO SCH (09:04)
[2022-07-23 09:10] VITALS: RESP 18
[2022-07-23 18:51] VITALS: BP 135/84; PULSE 67; TEMP 97.5
== END 2022-07-23 19:30 ==
LOC: JER 06:45 → JERBED 09:48 → J4S 15:06
PROVIDERS: ADMIT Family Medicine; ATTEND Family Medicine
PROC: 3E03329 Introduction of Other Anti-infective into Peripheral Vein, Percutaneous Approach (ICD-10-PCS; principal; 2022-07-19)
PROC: 3E023GC Introduction of Other Therapeutic Substance into Muscle, Percutaneous Approach (ICD-10-PCS; 2022-07-19)
PROC: 3E0337Z Introduction of Electrolytic and Water Balance Substance into Peripheral Vein, Percutaneous Approach (ICD-10-PCS; 2022-07-19)
DX: S09.90XA Unspecified injury of head, initial encounter (principal); R41.82 Altered mental status, unspecified; R60.0 Localized edema; L03.116 Cellulitis of left lower limb; L03.115 Cellulitis of right lower limb; I87.2 Venous insufficiency (chronic) (peripheral); J44.9 Chronic obstructive pulmonary disease, unspecified; I10 Essential (primary) hypertension; I87.8 Other specified disorders of veins; Z87.891 Personal history of nicotine dependence; W07.XXXA Fall from chair, initial encounter; Y93.89 Activity, other specified; Y92.098 Other place in other non-institutional residence as the place of occurrence of the external cause
CPT/HCPCS: 0241U-QW; 36415; 70450-TC; 70551-TC; 72125-TC; 80053; 80061; 81003; 82550; 82803; 82962; 83036; 83735; 84443; 84484; 85025; 85610; 85730; 86850; 86900; 86901; 87086; 93005; 93010; 96365; 96372; 97116-GP; 99285-25; C9803-CS; G0378; J0878; J1644; U0003; U0005

== ENCOUNTER 2022-12-26 11:30 | Inpatient (IN) | payer OTHER, MEDICARE ==
[2022-12-26 11:54] VITALS: BMI 38.7
[2022-12-26] MEDS ORDERED: ALBUTEROL SO4 2.5/IPRATROPIUM 0.5 INH SOL 3 ML VIAL.NEB. NEB ONE ×2 (12:20→12:44)
[2022-12-26 13:26] LABS: BASO % 0.6 % (0-2.0); EOS % 1.3 % (0-4.5); HEMATOCRIT 37.5 % (35.4-49); HEMOGLOBIN 12.5 GM/dL (11.7-16.9); LYMPH % 4.9 % (8-40); MCH 28.6 pg (25.7-33.7); MCHC 33.4 g/dl (32.0-35.9); MEAN CELL VOLUME 85.5 fl (80-96); MEAN PLT VOLUME 8.5 fl (7.5-11.1); MONO % 5.7 % (3.8-10.2); NEUT % 87.5 % (42.8-82.8); PLATELET COUNT 206 10^3/uL (134-434); RBC 4.38 M/mm3 (4.00-5.60); RDW 14.5 % (11.9-15.9); WHITE BLOOD COUNT 12.2 K/mm3 (4.0-10.0)
[2022-12-26] MEDS ORDERED: methylPREDNISolone NA SUCC 125 MG/2 ML VIAL IVPB ONE (13:29)
[2022-12-26] MEDS ORDERED: CEFTRIAXONE 1,000 MG in DEXTROSE 5%-WATER - 50 ML IVPB ONE (13:30)
[2022-12-26] MEDS ORDERED: AZITHROMYCIN IVPB 500 MG in DEXTROSE 5%-WATER - 250 ML IVPB ONE (13:30)
[2022-12-26] MEDS ORDERED: methylPREDNISolone NA SUCC 125 MG/2 ML VIAL ONE (13:33)
[2022-12-26] MEDS ORDERED: CEFTRIAXONE 1 GM/50 ML BAG ONE (13:33)
[2022-12-26] MEDS ORDERED: AZITHROMYCIN IVPB 500 MG/250 ML BAG IVPB ONE (13:34)
[2022-12-26 13:47] LABS: POTASSIUM 5.2 mmol/L (3.5-5.1)
[2022-12-26 13:50] LABS: ALBUMIN 3.9 g/dl (3.4-5.0); BLOOD UREA NITROGEN 39.9 mg/dL (7-18); CALCIUM 9.5 mg/dL (8.5-10.1)
[2022-12-26 13:52] LABS: CREATININE 1.1 mg/dL (0.55-1.3)
[2022-12-26 13:54] LABS: BILIRUBIN,TOTAL 0.6 mg/dL (0.2-1); MAGNESIUM 2.2 mg/dL (1.8-2.4); TOT PROT 7.3 g/dl (6.4-8.2)
[2022-12-26] MEDS ORDERED: SODIUM CHLORIDE 500 ML IV STA (14:51)
[2022-12-26 15:19] LABS: EPI CELLS 6 /uL (0-25.1); HYALINE CASTS 0 /uL (0-3.1); URINE APPEARANCE CLEAR; URINE BACTERIA 5 /uL (0-1359); URINE BILIRUBIN NEGATIVE (NEGATIVE); URINE COLOR YELLOW; URINE GLUCOSE (UA) NEGATIVE (NEGATIVE); URINE KETONE NEGATIVE (NEGATIVE); URINE LEUK ESTERASE NEGATIVE (NEGATIVE); URINE NITRITE NEGATIVE (NEGATIVE); URINE PROTEIN 1+ (NEGATIVE); URINE RBC 20 /uL (0-23.9); URINE UROBILINOGEN 0.2 mg/dL (0.2-1.0); URINE WBC 10 /uL (0-25.8)
[2022-12-26] MEDS ORDERED: CEFTRIAXONE 1 GM in DEXTROSE 5%-WATER - 50 ML IVPB ONE (16:00)
[2022-12-26] MEDS ORDERED: ACETAMINOPHEN 325 MG TABLET (FP) PO PRN (16:00)
[2022-12-26] MEDS ORDERED: ALBUTEROL SO4 0.083% IH SOL 2.5 MG/3 ML VIAL.NEB. NEB PRN (16:00)
[2022-12-26] MEDS: ATORVASTATIN CA 40 MG TABLET (FP) PO SCH (22:09)
[2022-12-26] MEDS: HEPARIN NA (PORCINE) 5,000 UNITS/ML 1ML VIAL SQ SCH (22:09)
[2022-12-27] MEDS: VALSARTAN 80 MG TABLET PO SCH (09:52)
[2022-12-27] MEDS: HEPARIN NA (PORCINE) 5,000 UNITS/ML 1ML VIAL SQ SCH ×2 (09:52→21:23)
[2022-12-27] MEDS: ASPIRIN COATED 81 MG TABLET.EC PO SCH (09:52)
[2022-12-27] MEDS: SERTRALINE HCL 25 MG TABLET (FP) PO SCH (10:03)
[2022-12-27] MEDS: CEFTRIAXONE 1 GM in DEXTROSE 5%-WATER - 50 ML IVPB SCH (12:23)
[2022-12-27] MEDS: ATENOLOL 25 MG TABLET (FP) PO SCH (12:23)
[2022-12-27] MEDS: AZITHROMYCIN IVPB 500 MG/250 ML BAG IVPB SCH (13:15)
[2022-12-27] MEDS: ATORVASTATIN CA 40 MG TABLET (FP) PO SCH (21:23)
[2022-12-27] MEDS: MINERAL OIL/PET HY-PHL TOPICAL OINTMENT 454 GM JAR TP SCH (21:28)
[2022-12-27] MEDS: VANCOMYCIN/WATER FOR INJ (PEG) 1,000 MG/200 ML BAG IVPB SCH (22:02)
[2022-12-28 10:03] LABS: POTASSIUM 4.2 mmol/L (3.5-5.1)
[2022-12-28 10:09] LABS: ALBUMIN 3.4 g/dl (3.4-5.0); BLOOD UREA NITROGEN 47.2 mg/dL (7-18); CALCIUM 8.5 mg/dL (8.5-10.1)
[2022-12-28] MEDS: ASPIRIN COATED 81 MG TABLET.EC PO SCH (10:22)
[2022-12-28] MEDS: HEPARIN NA (PORCINE) 5,000 UNITS/ML 1ML VIAL SQ SCH ×2 (10:22→21:19)
[2022-12-28] MEDS: SERTRALINE HCL 25 MG TABLET (FP) PO SCH (10:22)
[2022-12-28] MEDS: VALSARTAN 80 MG TABLET PO SCH (10:22)
[2022-12-28] MEDS: MINERAL OIL/PET HY-PHL TOPICAL OINTMENT 454 GM JAR TP SCH ×2 (10:22→21:20)
[2022-12-28] MEDS: CEFTRIAXONE 1 GM in DEXTROSE 5%-WATER - 50 ML IVPB SCH (10:23)
[2022-12-28] MEDS: ATENOLOL 25 MG TABLET (FP) PO SCH (10:25)
[2022-12-28 10:41] LABS: CREATININE 1.1 mg/dL (0.55-1.3)
[2022-12-28 10:43] LABS: BILIRUBIN,TOTAL 0.4 mg/dL (0.2-1); TOT PROT 6.5 g/dl (6.4-8.2)
[2022-12-28] MEDS: VANCOMYCIN/WATER FOR INJ (PEG) 1,000 MG/200 ML BAG IVPB SCH ×2 (11:08→21:19)
[2022-12-28] MEDS: AZITHROMYCIN IVPB 500 MG/250 ML BAG IVPB SCH (13:05)
[2022-12-28] MEDS: ATORVASTATIN CA 40 MG TABLET (FP) PO SCH (21:19)
[2022-12-29] MEDS: VANCOMYCIN/WATER FOR INJ (PEG) 1,000 MG/200 ML BAG IVPB SCH ×2 (09:46→22:26)
[2022-12-29] MEDS: MINERAL OIL/PET HY-PHL TOPICAL OINTMENT 454 GM JAR TP SCH ×2 (09:48→22:29)
[2022-12-29] MEDS: HEPARIN NA (PORCINE) 5,000 UNITS/ML 1ML VIAL SQ SCH ×2 (09:49→22:28)
[2022-12-29] MEDS: ATENOLOL 25 MG TABLET (FP) PO SCH (09:50)
[2022-12-29] MEDS: VALSARTAN 80 MG TABLET PO SCH (09:50)
[2022-12-29] MEDS: ASPIRIN COATED 81 MG TABLET.EC PO SCH (09:50)
[2022-12-29] MEDS: SERTRALINE HCL 25 MG TABLET (FP) PO SCH (09:50)
[2022-12-29] MEDS: CEFTRIAXONE 1 GM in DEXTROSE 5%-WATER - 50 ML IVPB SCH (11:29)
[2022-12-29] MEDS: AZITHROMYCIN IVPB 500 MG/250 ML BAG IVPB SCH (12:15)
[2022-12-29] MEDS: ATORVASTATIN CA 40 MG TABLET (FP) PO SCH (22:28)
[2022-12-30 08:29] LABS: POTASSIUM 4.4 mmol/L (3.5-5.1)
[2022-12-30 08:30] LABS: HEMATOCRIT 35.4 % (35.4-49); HEMOGLOBIN 11.7 GM/dL (11.7-16.9); MCH 28.5 pg (25.7-33.7); MEAN CELL VOLUME 86.5 fl (80-96); MEAN PLT VOLUME 8.9 fl (7.5-11.1); PLATELET COUNT 173 10^3/uL (134-434); RBC 4.09 M/mm3 (4.00-5.60); RDW 14.2 % (11.9-15.9); WHITE BLOOD COUNT 6.1 K/mm3 (4.0-10.0)
[2022-12-30 08:32] LABS: ALBUMIN 3.1 g/dl (3.4-5.0); BLOOD UREA NITROGEN 33.2 mg/dL (7-18); CALCIUM 8.3 mg/dL (8.5-10.1)
[2022-12-30 08:35] LABS: CREATININE 1.1 mg/dL (0.55-1.3)
[2022-12-30 08:37] LABS: BILIRUBIN,TOTAL 0.7 mg/dL (0.2-1); TOT PROT 6.2 g/dl (6.4-8.2)
[2022-12-30] MEDS: CEFTRIAXONE 1 GM in DEXTROSE 5%-WATER - 50 ML IVPB SCH (09:02)
[2022-12-30] MEDS: HEPARIN NA (PORCINE) 5,000 UNITS/ML 1ML VIAL SQ SCH ×2 (09:09→21:58)
[2022-12-30] MEDS: ATENOLOL 25 MG TABLET (FP) PO SCH (09:09)
[2022-12-30] MEDS: VALSARTAN 80 MG TABLET PO SCH (09:09)
[2022-12-30] MEDS: ASPIRIN COATED 81 MG TABLET.EC PO SCH (09:09)
[2022-12-30] MEDS: SERTRALINE HCL 25 MG TABLET (FP) PO SCH (09:09)
[2022-12-30] MEDS: VANCOMYCIN/WATER FOR INJ (PEG) 1,000 MG/200 ML BAG IVPB SCH ×2 (09:10→21:57)
[2022-12-30] MEDS: AZITHROMYCIN IVPB 500 MG/250 ML BAG IVPB SCH (09:10)
[2022-12-30] MEDS: MINERAL OIL/PET HY-PHL TOPICAL OINTMENT 454 GM JAR TP SCH ×2 (09:10→21:58)
[2022-12-30] MEDS: ATORVASTATIN CA 40 MG TABLET (FP) PO SCH (21:58)
[2022-12-31] MEDS: ASPIRIN COATED 81 MG TABLET.EC PO SCH (09:38)
[2022-12-31] MEDS: SERTRALINE HCL 25 MG TABLET (FP) PO SCH (09:38)
[2022-12-31] MEDS: HEPARIN NA (PORCINE) 5,000 UNITS/ML 1ML VIAL SQ SCH (09:38)
[2022-12-31] MEDS: VALSARTAN 80 MG TABLET PO SCH (09:38)
[2022-12-31] MEDS: MINERAL OIL/PET HY-PHL TOPICAL OINTMENT 454 GM JAR TP SCH (09:38)
[2022-12-31] MEDS: CEFTRIAXONE 1 GM in DEXTROSE 5%-WATER - 50 ML IVPB SCH (09:38)
[2022-12-31] MEDS: VANCOMYCIN/WATER FOR INJ (PEG) 1,000 MG/200 ML BAG IVPB SCH (09:38)
[2022-12-31] MEDS: ATENOLOL 25 MG TABLET (FP) PO SCH (09:43)
[2022-12-31 09:46] VITALS: TEMP 97.8
[2022-12-31 15:01] VITALS: PULSE 58
[2022-12-31 21:35] VITALS: BP 130/87; RESP 18
== END 2022-12-31 21:50 | disposition home or self-care (01) | DRG 194 ==
LOC: JER 11:30 → JERBED 16:03 → J7W 18:56
PROVIDERS: ADMIT Family Medicine; ATTEND Family Medicine
DX: J18.9 Pneumonia, unspecified organism (principal); J44.0 Chronic obstructive pulmonary disease with (acute) lower respiratory infection; J44.1 Chronic obstructive pulmonary disease with (acute) exacerbation; L03.116 Cellulitis of left lower limb; L03.115 Cellulitis of right lower limb; I73.89 Other specified peripheral vascular diseases; E66.9 Obesity, unspecified; Z68.38 Body mass index [BMI] 38.0-38.9, adult; E78.5 Hyperlipidemia, unspecified; I44.4 Left anterior fascicular block; I45.10 Unspecified right bundle-branch block; R41.82 Altered mental status, unspecified; I87.2 Venous insufficiency (chronic) (peripheral); E87.5 Hyperkalemia; I12.9 Hypertensive chronic kidney disease with stage 1 through stage 4 chronic kidney disease, or unspecified chronic kidney disease; N18.9 Chronic kidney disease, unspecified; Z96.653 Presence of artificial knee joint, bilateral
CPT/HCPCS: 0241U-QW; 36415; 71045-TC-FY; 80048; 80053; 81003; 82962; 83735; 83880; 84484; 85025; 85027; 87040; 87086; 93005; 93010; 93306-TC; 94761; 99285-25; J1644

== ENCOUNTER 2023-05-31 06:11 | Inpatient (IN) | payer OTHER, MEDICARE ==
[2023-05-31 09:08] LABS: BASO % 0.4 % (0-2.0); EOS % 1.9 % (0-4.5); HEMATOCRIT 35.2 % (35.4-49); HEMOGLOBIN 12.3 GM/dL (11.7-16.9); MCH 28.7 pg (25.7-33.7); MCHC 34.9 g/dl (32.0-35.9); MEAN CELL VOLUME 82.3 fl (80-96); MEAN PLT VOLUME 7.6 fl (7.5-11.1); MONO % 9.4 % (3.8-10.2); NEUT % 82.3 % (42.8-82.8); PLATELET COUNT 267 10^3/uL (134-434); RBC 4.28 M/mm3 (4.00-5.60); RDW 14.7 % (11.9-15.9); WHITE BLOOD COUNT 10.7 K/mm3 (4.0-10.0)
[2023-05-31 09:30] LABS: POTASSIUM 4.3 mmol/L (3.5-5.1)
[2023-05-31 09:36] LABS: CALCIUM 9.1 mg/dL (8.5-10.1)
[2023-05-31 09:37] LABS: BLOOD UREA NITROGEN 27.6 mg/dL (7-18); MAGNESIUM 2.2 mg/dL (1.8-2.4)
[2023-05-31 09:38] LABS: ALBUMIN 3.2 g/dl (3.4-5.0)
[2023-05-31 09:40] LABS: BILIRUBIN,TOTAL 0.6 mg/dL (0.2-1)
[2023-05-31 09:42] LABS: CREATININE 1.2 mg/dL (0.55-1.3); TOT PROT 6.6 g/dl (6.4-8.2)
[2023-05-31] MEDS: ALBUTEROL SO4 2.5/IPRATROPIUM 0.5 INH SOL 3 ML VIAL.NEB. NEB ONE (10:23)
[2023-05-31] MEDS: ALBUTEROL SO4 2.5/IPRATROPIUM 0.5 INH SOL 3 ML VIAL.NEB. NEB SCH (16:25)
[2023-05-31] MEDS: ATORVASTATIN CA 40 MG TABLET (FP) PO SCH (22:39)
[2023-06-01] MEDS: ACETAMINOPHEN 325 MG TABLET (FP) PO ONE (03:06)
[2023-06-01 09:21] LABS: BASO % 0.7 % (0-2.0); EOS % 2.8 % (0-4.5); HEMATOCRIT 33.2 % (35.4-49); LYMPH % 8.9 % (8-40); MCH 27.8 pg (25.7-33.7); MCHC 33.2 g/dl (32.0-35.9); MEAN CELL VOLUME 83.6 fl (80-96); MEAN PLT VOLUME 8.2 fl (7.5-11.1); MONO % 9.3 % (3.8-10.2); NEUT % 78.3 % (42.8-82.8); PLATELET COUNT 236 10^3/uL (134-434); RBC 3.97 M/mm3 (4.00-5.60); RDW 15.2 % (11.9-15.9); WHITE BLOOD COUNT 8.3 K/mm3 (4.0-10.0)
[2023-06-01 09:49] LABS: BLOOD UREA NITROGEN 30.7 mg/dL (7-18)
[2023-06-01 09:57] LABS: ALBUMIN 2.8 g/dl (3.4-5.0)
[2023-06-01 09:58] LABS: CALCIUM 8.9 mg/dL (8.5-10.1)
[2023-06-01 10:00] LABS: BILIRUBIN,TOTAL 0.6 mg/dL (0.2-1); CREATININE 1.2 mg/dL (0.55-1.3)
[2023-06-01 10:01] LABS: TOT PROT 5.9 g/dl (6.4-8.2)
[2023-06-01] MEDS: SERTRALINE HCL 50 MG TABLET (FP) PO SCH (10:04)
[2023-06-01] MEDS: VALSARTAN 80 MG TABLET PO SCH (10:04)
[2023-06-01] MEDS: ASPIRIN 81 MG CHEWABLE TABLETS PO SCH (10:04)
[2023-06-01] MEDS: VANCOMYCIN/WATER 1250 MG 1,250 MG/250 ML BAG IVPB SCH (10:04)
[2023-06-01] MEDS: ATENOLOL 25 MG TABLET (FP) PO SCH (10:04)
[2023-06-01 18:26] LABS: EPI CELLS 10 /uL (0-25.1); HYALINE CASTS 3 /uL (0-3.1); URINE APPEARANCE CLEAR; URINE BACTERIA 11 /uL (0-1359); URINE BILIRUBIN NEGATIVE (NEGATIVE); URINE COLOR YELLOW; URINE GLUCOSE (UA) NEGATIVE (NEGATIVE); URINE KETONE TRACE (NEGATIVE); URINE LEUK ESTERASE TRACE (NEGATIVE); URINE NITRITE NEGATIVE (NEGATIVE); URINE PROTEIN NEGATIVE (NEGATIVE); URINE RBC 11 /uL (0-23.9); URINE WBC 13 /uL (0-25.8)
[2023-06-03 16:18] VITALS: BMI 30.1
[2023-06-03] MEDS: AMINO ACIDS/PROTEIN HYDROLYS 30 ML LIQUID.PKT PO SCH (17:16)
[2023-06-04] MEDS ORDERED: ALBUTEROL SO4 0.083% IH SOL 2.5 MG/3 ML VIAL.NEB. NEB PRN (09:36)
[2023-06-04] MEDS: MULTIVITAMINS (DAILY MVI) TABLET (FP) PO SCH (09:58)
[2023-06-04] MEDS: ASCORBIC ACID 250 MG TABLET (FP) PO SCH (09:58)
[2023-06-04] MEDS: ALBUTEROL SO4 2.5/IPRATROPIUM 0.5 INH SOL 3 ML VIAL.NEB. NEB SCH (19:39)
[2023-06-04 21:40] VITALS: BP 118/63; PULSE 75; RESP 18; TEMP 98.2
== END 2023-06-05 03:22 | DRG 603 ==
LOC: JER 06:11 → JERBED 09:16 → J8W 14:29
PROVIDERS: ADMIT Internal Medicine; ATTEND Internal Medicine
DX: L03.116 Cellulitis of left lower limb (principal); L97.328 Non-pressure chronic ulcer of left ankle with other specified severity; L03.115 Cellulitis of right lower limb; I10 Essential (primary) hypertension; E78.5 Hyperlipidemia, unspecified; J44.9 Chronic obstructive pulmonary disease, unspecified; I48.91 Unspecified atrial fibrillation; B35.1 Tinea unguium; R33.9 Retention of urine, unspecified; B95.62 Methicillin resistant Staphylococcus aureus infection as the cause of diseases classified elsewhere; I73.9 Peripheral vascular disease, unspecified; L30.8 Other specified dermatitis; I89.0 Lymphedema, not elsewhere classified; W07.XXXA Fall from chair, initial encounter; Y92.098 Other place in other non-institutional residence as the place of occurrence of the external cause; Y99.9 Unspecified external cause status; Z96.643 Presence of artificial hip joint, bilateral; Z96.653 Presence of artificial knee joint, bilateral
CPT/HCPCS: 36415; 71045-TC-FY; 72170-TC-FY; 80053; 81003; 83036; 83735; 84443; 85025; 87040; 87077; 87081; 87086; 87186; 87635; 93005; 93010; 93925-TC; 93970-TC; 94640; 97116-GP; 97162-GP; 99285-25

== ENCOUNTER 2023-06-20 17:58 | Emergency (ER) | payer OTHER, MEDICARE ==
[2023-06-20 19:11] VITALS: TEMP 98.2; BMI 33.5
[2023-06-20 22:35] VITALS: BP 137/76; PULSE 58; RESP 16
== END 2023-06-20 22:56 ==
LOC: JER 17:58
DX: I87.2 Venous insufficiency (chronic) (peripheral) (principal)
CPT/HCPCS: 99283-25

== ENCOUNTER 2023-09-13 13:59 | Inpatient (IN) | payer OTHER, MEDICARE ==
[2023-09-13 15:48] LABS: BASO % 0.6 % (0-2.0); EOS % 0.3 % (0-4.5); HEMATOCRIT 42.2 % (35.4-49); HEMOGLOBIN 13.5 GM/dL (11.7-16.9); LYMPH % 4.9 % (8-40); MCH 27.5 pg (25.7-33.7); MEAN CELL VOLUME 85.9 fl (80-96); MEAN PLT VOLUME 8.1 fl (7.5-11.1); MONO % 8.3 % (3.8-10.2); NEUT % 85.9 % (42.8-82.8); PLATELET COUNT 177 10^3/uL (134-434); RBC 4.91 M/mm3 (4.00-5.60); RDW 15.6 % (11.9-15.9); WHITE BLOOD COUNT 12.5 K/mm3 (4.0-10.0)
[2023-09-13 16:01] LABS: INR 1.27 (0.83-1.09); PROTHROMBIN TIME (PATIENT) 14.2 SEC (9.7-13.0)
[2023-09-13 16:04] LABS: ACTIVATED PTT 32.1 SECONDS (25.2-36.5)
[2023-09-13 16:05] LABS: POTASSIUM 4.4 mmol/L (3.5-5.1)
[2023-09-13 16:07] LABS: CALCIUM 9.1 mg/dL (8.5-10.1)
[2023-09-13 16:08] LABS: ALBUMIN 3.8 g/dl (3.4-5.0); BLOOD UREA NITROGEN 25.6 mg/dL (7-18)
[2023-09-13 16:11] LABS: CREATININE 1.1 mg/dL (0.55-1.3)
[2023-09-13 16:13] LABS: TOT PROT 7.4 g/dl (6.4-8.2)
[2023-09-13 16:53] LABS: EPI CELLS 3 /uL (0-25.1); HYALINE CASTS 5 /uL (0-3.1); PH,URINE 5.5 (5.0-8.0); URINE APPEARANCE CLOUDY; URINE BILIRUBIN NEGATIVE (NEGATIVE); URINE COLOR YELLOW; URINE GLUCOSE (UA) NEGATIVE (NEGATIVE); URINE KETONE NEGATIVE (NEGATIVE); URINE LEUK ESTERASE 2+ (NEGATIVE); URINE NITRITE POSITIVE (NEGATIVE); URINE PROTEIN 3+ (NEGATIVE); URINE RBC 79 /uL (0-23.9); URINE WBC 275 /uL (0-25.8)
[2023-09-13] MEDS ORDERED: ACETAMINOPHEN INJECTION 100 ML IVPB ONE (17:44)
[2023-09-13] MEDS ORDERED: CEFTRIAXONE 1 GM/50 ML BAG ONE (17:44)
[2023-09-13] MEDS: SODIUM CHLORIDE 0.9% 500 ML INFUS.BAG IV ONE ×2 (17:53→20:48)
[2023-09-13] MEDS: ACETAMINOPHEN 1000 MG/100 ML BAG IVPB ONE (17:53)
[2023-09-13] MEDS ORDERED: VANCOMYCIN 1 GRAM (PRE-DOCKED) 1,000 MG/250 ML BAG IVPB ONE (17:56)
[2023-09-13] MEDS: VANCOMYCIN 1,000 MG in DEXTROSE 5%-WATER - 250 ML IVPB ONE (18:23)
[2023-09-13] MEDS ORDERED: DOCUSATE SODIUM 100 MG CAPSULE (FP) PO PRN (21:01)
[2023-09-13] MEDS ORDERED: HEPARIN NA (PORCINE) 5,000 UNITS/ML 1ML VIAL ONE (21:35)
[2023-09-13] MEDS: SODIUM CHLORIDE 1,000 ML IV SCH (21:44)
[2023-09-14 00:31] VITALS: BMI 31.4
[2023-09-14] MEDS ORDERED: ALBUTEROL SO4 2.5/IPRATROPIUM 0.5 INH SOL 3 ML VIAL.NEB. NEB PRN ×2 (05:19→05:33)
[2023-09-14] MEDS ORDERED: VANCOMYCIN HCL 1,500 MG in DEXTROSE 5%-WATER - 250 ML IVPB SCH (06:00)
[2023-09-14] MEDS: VANCOMYCIN PREMIX 1.5 GM 1,500 MG/300 ML BAG IVPB SCH (06:34)
[2023-09-14 06:40] LABS: BASO % 0.4 % (0-2.0); EOS % 0.5 % (0-4.5); HEMATOCRIT 36.6 % (35.4-49); HEMOGLOBIN 11.9 GM/dL (11.7-16.9); LYMPH % 5.5 % (8-40); MCHC 32.6 g/dl (32.0-35.9); MEAN CELL VOLUME 85.8 fl (80-96); MEAN PLT VOLUME 8.3 fl (7.5-11.1); MONO % 8.8 % (3.8-10.2); NEUT % 84.8 % (42.8-82.8); PLATELET COUNT 136 10^3/uL (134-434); RBC 4.27 M/mm3 (4.00-5.60); RDW 15.4 % (11.9-15.9); WHITE BLOOD COUNT 9.9 K/mm3 (4.0-10.0)
[2023-09-14 07:27] LABS: POTASSIUM 4.1 mmol/L (3.5-5.1)
[2023-09-14 07:29] LABS: BLOOD UREA NITROGEN 25.8 mg/dL (7-18); CALCIUM 8.3 mg/dL (8.5-10.1); MAGNESIUM 1.9 mg/dL (1.8-2.4)
[2023-09-14 07:32] LABS: CREATININE 1.2 mg/dL (0.55-1.3)
[2023-09-14 07:34] LABS: BILIRUBIN,TOTAL 0.7 mg/dL (0.2-1); TOT PROT 5.9 g/dl (6.4-8.2)
[2023-09-14] MEDS: AMINO ACIDS/PROTEIN HYDROLYS 30 ML LIQUID.PKT PO SCH (08:00)
[2023-09-14] MEDS: SERTRALINE HCL 50 MG TABLET (FP) PO SCH (09:19)
[2023-09-14] MEDS: CEFTRIAXONE 1 GM in DEXTROSE 5%-WATER - 50 ML IVPB SCH (09:19)
[2023-09-14] MEDS ORDERED: METOPROLOL TARTRATE 5 MG/5 ML VIAL ONE (15:51)
[2023-09-14] MEDS: METOPROLOL TARTRATE 5 MG/5 ML VIAL IVPUSH ONE (15:55)
[2023-09-14] MEDS: ATENOLOL 25 MG TABLET (FP) PO ONE (17:17)
[2023-09-14] MEDS: ACETAMINOPHEN 1000 MG/100 ML BAG IVPB PRN (19:11)
[2023-09-14] MEDS: ATORVASTATIN CA 40 MG TABLET (FP) PO SCH (21:41)
[2023-09-14] MEDS: HEPARIN NA (PORCINE) 5,000 UNITS/ML 1ML VIAL SQ SCH (21:41)
[2023-09-15] MEDS: ASPIRIN 81 MG CHEWABLE TABLETS PO SCH (10:49)
[2023-09-15] MEDS: ATENOLOL 25 MG TABLET (FP) PO SCH (11:00)
[2023-09-16] MEDS: LORazepam 2 MG/ML SDV VIAL IVPUSH ONE (23:17)
[2023-09-17 13:03] VITALS: BP 114/76; PULSE 71; RESP 19; TEMP 98
== END 2023-09-17 15:20 | DRG 872 ==
LOC: JER 13:59 → JERBED 17:10 → J2W 23:48
PROVIDERS: ADMIT Internal Medicine; ATTEND Family Medicine
DX: A41.9 Sepsis, unspecified organism (principal); N39.0 Urinary tract infection, site not specified; S81.802A Unspecified open wound, left lower leg, initial encounter; I10 Essential (primary) hypertension; E78.5 Hyperlipidemia, unspecified; I73.9 Peripheral vascular disease, unspecified; J44.9 Chronic obstructive pulmonary disease, unspecified; I48.91 Unspecified atrial fibrillation; I87.2 Venous insufficiency (chronic) (peripheral); W19.XXXA Unspecified fall, initial encounter; Y92.009 Unspecified place in unspecified non-institutional (private) residence as the place of occurrence of the external cause; Y93.89 Activity, other specified; Y99.8 Other external cause status
CPT/HCPCS: 0241U-QW; 36415; 70450-TC; 71045-TC-FY; 72125-TC; 73590-TC-LT-FY; 80053; 81003; 83735; 84100; 84484; 85025; 85610; 85730; 87040; 87086; 87186; 93005; 93010; 97116-GP; 97161-GP; 99285-25; G0480; J0131; J1644